=== PATIENT | male | born 1960 | race Caucasian/White ===

== ENCOUNTER 2016-05-18 00:28 | Inpatient (IN) | payer OTHER ==
[~2016-05-18] VITALS: Ht 177.8 cm; Wt 74.4 kg
[2016-05-18] VITALS (9 sets, daily range): BP systolic 118–135; BP diastolic 65–73
--- NOTE | ~2016-05-18 | PR ---
[place], [place] PROGRESS NOTE NAME: RITA MELGAR UNIT #: [id number] ROOM: [place] [address] DOCTOR: MANA CLIFTON MD BIRTHDATE: [birth year] DOS: 05/19/2016 PULMONARY FOLLOWUP SUBJECTIVE: The patient has been noted comfortable at this time, resting. There was no abdominal pain noted. The patient was continued on oxygen supplementation as well. He had a modified barium swallow study done this morning. The patient's modified barium swallow study was described to be abnormal. Respiratory status of the patient was noted significant improvement. Chest congestion noted intermittently without any sputum expectoration. OBJECTIVE: VITAL SIGNS: The patient showed normal temperature this morning, respiratory rate 21, heart rate of 93, blood pressure 126/66. Pulse ox saturation on 4 liters nasal cannula 96% saturation. HEENT: Showed no acute change. NECK: Supple. CARDIOVASCULAR: S1, S2 audible. LUNGS: Noted with crackles of the lungs were noted bilaterally, more on the right than the left side. Wheezing was noted decreased. ABDOMEN: Soft, nontender. LABORATORY DATA: BMP today: BUN and creatinine were normal, remaining electrolytes were normal. CBC: Hemoglobin 12.9, hematocrit 40.8, platelet count 172,000 with normal WBC count. IMPRESSION: 1. Bilateral acute pneumonia of the patient with acute aspiration, which has been treated with the antibiotics. 2. Acute asthmatic bronchitis, new onset for the patient, treated with corticosteroids. 3. History of muscular dystrophy. PLAN OF TREATMENT: Decrease the dose of Solu-Medrol to b.i.d. dosing. Repeat chest x-ray of the patient has been ordered to be done in the morning. The patient has been ordered physical therapy and occupational therapy today as well to help him improve his mobility with history of muscular dystrophy. Follow the recommendations of Speech Therapy because of the current abnormal modified barium swallow. Usual care. Supportive therapy, plan and management. [place], [place] PROGRESS NOTE NAME: RITA MELGAR UNIT #: [id number] ROOM: [place] [address] DOCTOR: MANA CLIFTON MD BIRTHDATE: [birth year] MANA LUDWIG MD CM:PNTRANS [id number] MANA FLORES MD 05/19/16 1052 interface
--- NOTE | ~2016-05-18 | PR ---
[place], [place] PROGRESS NOTE NAME: RITA MELGAR UNIT #: [id number] ROOM: 425 DOCTOR: MANA CLIFTON MD BIRTHDATE: [birth year] DOS: 05/25/2016 PULMONARY PROGRESS NOTE SUBJECTIVE: The patient was seen and examined on 05/25/2016, comfortably resting, sitting on the chair this morning. He has been showing continued reduction and improvement in the respiratory complaints at this time. The patient denies symptoms of chest pain, participates in physical therapy, speech and occupational therapy. OBJECTIVE: VITAL SIGNS: For the patient, which have been recorded showed the temperature of the patient was noted as normal. The respiratory rate of the patient recorded as 20, heart rate 97, blood pressure 99/50-114/70. The pulse ox saturation recorded on room air is 94% saturation. HEENT: Examination shows no acute change. NECK: Supple. CARDIOVASCULAR SYSTEM: S1, S2 audible. LUNGS: Noted without any wheezing or crackles at the present time. ABDOMEN: Soft, nontender. IMPRESSION: 1. The patient with progressive resolution of acute bacterial pneumonia and the patient with acute respiratory failure. 2. Oropharyngeal dysphagia, currently PEG tube in place. 3. Muscular dystrophy. PLAN OF TREATMENT: The patient has been already approved for the patient to be transferred to the [facility], but he does not wish to do that at this time. He does understand the risks and the benefits for the patient of such decision. Discharge planning for the patient has been started for the patient. The patient refused for the home discharge with home health services. Outpatient assessment recommended for the patient post-discharge rather to home or group home facility in the next 2-3 weeks for assessment of the respiratory status. Further discharge planning to be completed by the primary care attending. [place], [place] PROGRESS NOTE NAME: RITA MELGAR UNIT #: [id number] ROOM: 425 DOCTOR: MANA CLIFTON MD BIRTHDATE: [birth year] MANA LUDWIG MD CM:PNTRANS [phone] MANA FLORES MD 05/25/161923 interface
--- NOTE | ~2016-05-18 | PR ---
[place], [place] PROGRESS NOTE NAME: RITA MELGAR UNIT #: [id number] ROOM: 425 DOCTOR: MANA CLIFTON MD BIRTHDATE: [birth year] DOS: 05/23/2016 PULMONARY PROGRESS NOTE SUBJECTIVE: He has been showing continued gradual reduction and improvement of respiratory complaints. He has been getting physical therapy and occupation therapy as well. The coughing has been subsiding. There were no symptoms of chest pain or any abdominal pain. OBJECTIVE: VITAL SIGNS: For the patient which was recorded shows the temperature of the patient noted as normal. Respiratory rate 16, heart rate 70, blood pressure 108/60-118/74. Pulse oxygen saturation on 3 liters nasal cannula was 98% saturation recorded. HEENT: Examination shows no new change. NECK: Supple. CARDIOVASCULAR: S1, S2 audible. LUNGS: Noted without any wheezing or crackles. ABDOMEN: Soft, nontender. LABORATORY DATA: The results of the urine for Legionella antigen and Streptococcal antigen were noted as negative. No other labs were done today. IMPRESSION: 1. Resolving acute pneumonia for this patient was noted at present time with current present medical management from aspiration. 2. Oropharyngeal dysphagia as well. 3. History of muscular dystrophy. PLAN OF TREATMENT: Keep the patient n.p.o., continue physical therapy and occupation therapy, bronchodilators, oxygen supplementation, other plan of management. The chest x-ray of the patient ordered to be repeated today to assess the further resolution of the acute pneumonia. [place], [place] PROGRESS NOTE NAME: RITA MELGAR UNIT #: [id number] ROOM: 425 DOCTOR: MANA CLIFTON MD BIRTHDATE: [birth year] MANA LUDWIG MD CM:PNTRANS [id number] MANA FLORES MD 05/23/16 1245 interface
--- NOTE | ~2016-05-18 | CON ---
[place], [place] REPORT OF CONSULTATION NAME: RITA MELGAR UNIT #: [id number] ROOM: [place] [address] DOCTOR: OZIEL FLORES MDMANA BIRTHDATE: [birth year] DOS: 05/18/2016 PULMONARY CONSULTATION EVALUATION AND MANAGEMENT CONSULTATION REQUESTED BY: Hospitalist Services. HISTORY OF PRESENT ILLNESS: This is a 56-year-old white male who has been known with past history of muscular dystrophy, the patient still ambulating at home with assistance or use of crutches or other kind of supportive. The patient has been noted with developing increased coughing for the past 3 weeks. The history was given by the patient's and the mother as well. The patient has been assessed by his primary care physician, the patient was prescribed 1 antibiotic. He has not been showing any improvement in the respiratory symptoms and was given another course of a different antibiotic. The symptoms of the patient has been noted progressively worse for the past few days. The patient also developed wheezing and started on corticosteroids recently by the primary care physician. He was noted with high grade fever for the patient occurring at home, which has been brought down with use of the ibuprofen and other similar medications antipyretics. The patient has been admitted to the hospital and noted with acute pneumonia as well. REVIEW OF SYSTEMS: CONSTITUTIONAL SYMPTOMS: The patient was noted with symptoms of fatigue and tiredness with fever, but there were no chills described. EYES: Denies any blurred vision, dryness or the discharge. CARDIOVASCULAR SYSTEM: Denies anginal pain, edema or pain of the lower extremities or palpitations. EARS, NOSE, AND THROAT SYMPTOMS: Denies sore throat, hoarseness, otalgia, postnasal drainage. GASTROINTESTINAL SYMPTOMS: The patient has been noted with multiple episodes of vomiting recently for this patient as well. There were no abdominal pain, hematemesis, melena or hematochezia described. There was no known per se history of dysphagia. GENITOURINARY SYMPTOMS: Denies symptoms of dysuria, suprapubic pain, or hematuria. SKIN: There were no lesions or rashes described. MUSCULOSKELETAL SYMPTOMS: No acute deformities for this patient or redness noted. History of muscular dystrophy known. CENTRAL NERVOUS SYSTEM: History of muscular dystrophy of the patient noted without any history of acute seizures or syncopal episodes. Remaining systems were reviewed with the patient and with the help of the family members and noted negative. PAST MEDICAL HISTORY: Noted with history of muscular dystrophy. SURGICAL HISTORY: Reported as tonsillectomy. SOCIAL HISTORY: The patient is , lives at home. There was no history of alcohol use, tobacco or illicit drug use known. [place], [place] REPORT OF CONSULTATION NAME: RITA MELGAR UNIT #: [id number] ROOM: [place] [address] DOCTOR: MANA CLIFTON MD BIRTHDATE: [birth year] FAMILY HISTORY: Father at the age of years old, complication of muscular dystrophy as well. Mother is living, 77 years old without any known medical illnesses. HOME MEDICATIONS: Noted Vicodin and multivitamin. The details about the antibiotic use were unknown aspiration. DRUG ALLERGIES: NOTED ALLERGY TO MORPHINE SULFATE AND PENICILLINS. PHYSICAL EXAMINATION: GENERAL: This is a 56-year-old male who has been currently noted to be awake and alert, able to speak for this patient with some difficulty. Height for the patient recorded on current admission by the nursing staff 5 feet 10 inches, weight of 166 pounds, BMI 23. VITAL SIGNS: Temperature 99.4 degrees Fahrenheit to normal temperature, respiratory rate 23-24, heart rate of 88-110, blood pressure 122/72-88. Pulse oxygen saturation of the patient recorded on room air 83% and on 4-5 L nasal cannula was 96% saturation. HEENT: Examination showed head was atraumatic. Eyes nonicterus. NECK: Supple. CARDIOVASCULAR SYSTEM: S1, S2 is audible. LUNGS: The patient was noted with crackles of the lungs were noted bilaterally. Wheezing was also present in the lungs bilaterally. ABDOMEN: Flat, soft, nontender. EXTREMITIES: Show no edema, clubbing or cyanosis. MUSCULOSKELETAL SYMPTOMS AND CENTRAL NERVOUS SYSTEM: Examination of the patient was noted with muscular dystrophy. LABORATORY DATA: The labs on this patient. Arterial blood gas this morning, pH of 7.36, pCO2 of 48, pO2 57 on 2 L nasal cannula of oxygen this morning at time of admission to Intensive Care Unit. Influenza A and B nasal washing antigens are negative. Lactic acid 2.3, followup lactic acid 1.4 normal. PT/INR for the patient was noted as normal. This morning CMP of the patient on admission, glucose 223, BUN 14, creatinine was normal. AST 48, ALT 166, alkaline phosphatase 168, troponin mildly elevated at 0.34 with normal lipase. Second set of CK-MB, troponin of the patient, troponin still noted mildly elevated 0.318 with normal CK and MB. CMP repeated again, glucose 155, BUN and creatinine was normal, sodium 150, potassium 3.2. AST, ALT and alkaline phosphatase were still noted abnormal with partial improvement since earlier labs. Review of the radiology data for this patient. The chest x-ray which was done, 1 view for patient on admission was noted with moderate size of patchy infiltration was noted in the right mid and the right lower lobe. Infiltration and consolidation was also present in the left lower lobe. Small pleural effusions were seen. IMPRESSION: 1. The patient who has been currently admitted to the hospital with acute hypoxic respiratory failure with acute bacterial pneumonia with possibility of resistant infection because of 2 antibiotics and failed outpatient treatment. [place], [place] REPORT OF CONSULTATION NAME: RITA MELGAR UNIT #: [id number] ROOM: [place] [address] DOCTOR: OZIEL FLORES MD,[facility] BIRTHDATE: [birth year] 2. New onset of acute exacerbation of bronchial asthma. 3. Small pleural fluid related to the current acute pneumonia as well. 4. Abnormal troponin of the patient, rule out non-ST segment elevation myocardial infarction. 5. Lactic acidosis with acute sepsis as well. 6. History of muscular dystrophy. 7. Rule out dysphagia. The right diaphragm was also noted to be elevated for the patient, will be assessed for possibility of diaphragmatic paralysis. PLAN OF TREATMENT: The patient is already getting therapeutic heparin and the IV corticosteroids. Hyperglycemia noted secondary to corticosteroids, need to be managed with sliding scale insulin coverage if necessary. Continue bronchodilators and the current antibiotics administration. The antibiotic spectrum will be reduced based on the progression of the illness. Obtain the sputum for Gram stain and culture and monitoring blood culture results. Also, get the urine for Legionella antigen as well. Keep the oxygen supplementation to maintain saturation 92% or greater. At this time, there will be no need for the use of the BiPAP or other respiratory support, if necessary, it will be ordered accordingly. All other supportive therapy, plan and management. Obtain the sniff test for the patient to rule out diaphragmatic paralysis. Also, closely monitor pleural fluid. Consider thoracentesis if necessary. Usual care. Other plan and management as well. Monitor chest x-ray periodically as well. Close monitoring of the respiratory status to be continued in the Intensive Care Unit as well. Further treatment in changes will be done based on the progression of the illness. The anticoagulation for the patient's DVT prophylaxis already provided with the therapeutic heparin. Cardiology consultation has been noted in progress. The patient has been also getting echocardiogram to assess his left ventricular ejection fraction. Thanks for allowing me to participate in the care of this patient. MANA LUDWIG MD CM:CONSTR:REPORT OF CONSULTATION 1255 05/18/16 2117 interface
--- NOTE | ~2016-05-18 | PR ---
[place], [place] PROGRESS NOTE NAME: RITA MELGAR UNIT #: [id number] ROOM: 425 DOCTOR: OZIEL FLORES MD,MANA BIRTHDATE: [birth year] DOS: 05/20/2016 ADDENDUM The patient's sniff test results of the patient of 05/18/2016 were reviewed, showed paradoxical movement of the patient of the right upper diaphragm for the patient with a strong consideration of the right diaphragmatic hemiparesis for the patient would be considered. The diaphragm was still noted elevated with all the recent study for this patient as well. MANA LUDWIG MD CM:DUANE [phone] MANA FLORES MD 05/20/16 1242 interface
--- NOTE | ~2016-05-18 | O ---
[place], [place] OPERATIVE NOTE NAME: RITA MELGAR UNIT #: [id number] ROOM: 425 DOCTOR: MAGDA MONTOYA MD BIRTHDATE: [birth year] DOS: 05/20/2016 GASTROENDOSCOPIC REPORT INDICATION: A 56-year-old patient who has presented with chief complaint of neurogenic dysphagia, history of myotonic dystrophy, disability, history of tonsillectomy, dyslipidemia, and bedridden status. Gradual difficulty with swallowing secondary to neurogenic dysphagia. PROCEDURE: Today's procedure part of investigation was EGD, PEG tube placement. PREMEDICATION: Versed and Diprivan. SCOPE: Olympus forward-viewing gastroscope Q10 video. REPORT: After putting the patient in the left lateral position and after application of lubricant to the scope, the scope was introduced. Thereafter, under direct visualization, I advanced through the length of the esophagus without difficulty. Esophagus cervicothoracic distally carefully examined. Evidence of esophagitis was noticed. There was evidence of dysmotility of the esophagus and unableness to clear the secretions because of abnormal dysmotility; however, the secretions were suctioned out. Gastric pouch was entered. Duodenal patency assured. Anterior abdominal wall aseptically was prepped, 2 mL of Xylocaine was injected. Trocar was introduced. Guidewire was advanced, grasped with forceps and orally pulled. Gastrostomy tube, PEG size 20, it was anchored to the guidewire and orally pulled to recover from the surface of the abdomen. Anchors placed, patency checked, tolerated the procedure well. IMPRESSION: Percutaneous endoscopic gastrostomy for neurogenic dysphagia, myotonic dystrophy. PLAN AND DISCUSSION: Resumption of feeding Osmolite 20 mL per hour starting 10 p.m. tonight and increasing to 30 next morning and to 40 next morning after. Water flushes, H2O 40 mL every 4 hours and clinical reassessment. [place], [place] OPERATIVE NOTE NAME: RITA MELGAR UNIT #: [id number] ROOM: 425 DOCTOR: MAGDA MONTOYA MD BIRTHDATE: [birth year] MAGDA MONTOYA MD CM:OPRECORD:OPERATIVE NOTE [phone] MAGDA MONTOYA MD 05/23/16 1050 interface
--- NOTE | ~2016-05-18 | PROC NOTE ---
[place], [place] PROCEDURE NOTE NAME: RITA MELGAR UNIT #: [id number] ROOM: [place] [address] DOCTOR: MINE OBANDO BIRTHDATE: [birth year] DOS: MODIFIED BARIUM SWALLOW BACKGROUND HISTORY AND MEDICAL HISTORY: The patient is a pleasant 56-year-old male referred for modified barium swallow due to a current diagnosis of muscular dystrophy. The patient has increased his respiratory symptoms with a chest x-ray recently done during hospitalization indicating bilateral lower lobe airspace disease. The patient is currently n.p.o. upon admission due to respiratory status and diagnosis of pneumonia to assess for safety diet recommendations for p.o. intake. The patient's voice was hoarse and weak and his speech was dysarthric in nature and he reports this is consistent with his diagnosis of muscular dystrophy and reports that he is progressively becoming weaker and having more difficulty. METHODS AND MATERIALS: The patient was seated upright on a gurney with max assist he was viewed in the lateral plane. The study was done in conjunction with Dr. Mcnair. The patient was able to hold a cup and some assistance was provided during the modified barium swallow. The patient was administered nectar thick liquid off a teaspoon and nectar thick liquid out of a cup and nectar thin liquid, barium as well as applesauce coated with barium paste. ORAL PHASE: The patient demonstrated moderately to severe difficulty forming a cohesive bolus and transferring it to the posterior portion of his oral cavity into the pharynx. He had premature loss of all consistencies with poor formation of a bolus on nectar and thin liquids. It was more controlled with the applesauce. The patient demonstrated the liquids falling into his vallecula and the thin liquids filling over into his piriform sinuses before triggering a swallow with an average of 4 seconds delay and moderate delay in swallow initiation at the level of the vallecula and/or the piriform and vallecula filled with consistencies. PHARYNGEAL PHASE: The patient demonstrated severe residue with poor tongue base to posterior and anterior posterior pharyngeal wall contact. He also demonstrated reduced laryngeal elevation and there was severe residue on all consistencies throughout the pharynx. NATURAL RESOURCES EXTENSION EDUCATOR cued him and he did clear to moderate amounts of residue with sequential swallows approximately 3-4 per bolus amount which would also probably lead to fatigue. There was penetration noted on an unknown consistency, which was in the vallecula it was either thin or nectar consistency and patient did not cough or throat clear. He had an unproductive cough and was unable to clear from his laryngeal vestibule. So we would probably ultimately follow to the level of the vocal cords and down into the lungs to be considered aspiration; however, this was not noted on the study. RECOMMENDATIONS AND IMPRESSION: This development writer feels the patient is unsafe and would not be able to maintain adequate nutrition and hydration via p.o. intake due to moderate to severe oral and pharyngeal dysphagia. It is recommended that patient be seen for extensive speech therapy and therapeutic feeds per speech therapist will be implemented when patient is stronger and can tolerate them. The patient is a candidate for the Culp water protocol as he tolerated small [place], [place] PROCEDURE NOTE NAME: RITA MELGAR UNIT #: [id number] ROOM: [place] [address] DOCTOR: MINE OBANDO BIRTHDATE: [birth year] sips of thin liquids; however, the Culp protocol should be followed closely with good oral care, small sips of pure water with cleaning of the mouth before and after and throughout the day. The patient should be limited in his intake of water to 30-60 mL a few times a day and be closely monitored for signs and symptoms of aspiration. Thank you for this referral. MINE OBANDO CM:PROCNOTE:PROCEDURE NOTE [id number] MINE OBANDO
--- NOTE | ~2016-05-18 | PR ---
[place], [place] PROGRESS NOTE NAME: RITA MELGAR UNIT #: [id number] ROOM: 425 DOCTOR: MANA CLIFTON MD BIRTHDATE: [birth year] DOS: 05/24/2016 PULMONARY PROGRESS NOTE SUBJECTIVE: He has been noted very comfortable at this time, sitting on the side of the bed. Overall, improvement in the respiratory status of the patient and physical status has been noted. The patient denies symptoms of chest pain, abdominal pain. Coughing has been gradually subsiding. OBJECTIVE: VITAL SIGNS: For the patient which has been recorded showed the temperature of the patient was noted as normal temperature. The respiratory rate of the patient recorded as 20, heart rate of 66, blood pressure of 92/60. HEENT: Showed no acute change. NECK: Supple. CARDIOVASCULAR: S1, S2 audible. LUNGS: The patient noted without any wheezing or crackles at the present time. ABDOMEN: Soft, nontender. LABORATORY DATA: Chest x-ray of the patient that was done yesterday was reviewed and it shows small bilateral infiltration was still noted with incomplete resolution of previous noted acute pneumonia. IMPRESSION: 1. Improving acute pneumonia of the patient with aspiration, responding to current treatment effectively. 2. Dysphagia, PEG tube in place. 3. Muscular dystrophy with overall generalized debility, muscle deconditioning improving. PLAN OF TREATMENT: No changes in the plan of management at this time. Continue the patient on current therapy, plan of care, other usual medical management. Supportive care, other treatment plan of therapies. The patient is currently being assessed for transfer to correction facility. The patient is refused by the insurance for transfer to the nursing facility, has been refused for the LTAC facility, then there would be no choice, but to discharge the patient to home setting with antibiotic, bronchodilators, physical therapy, speech therapy, occupational therapy and others. [place], [place] PROGRESS NOTE NAME: RITA MELGAR UNIT #: [id number] ROOM: 425 DOCTOR: MANA CLIFTON MD BIRTHDATE: [birth year] MANA LUDWIG MD CM:PNTRANS [phone] MANA FLORES MD 05/24/16 1220 interface
--- NOTE | ~2016-05-18 | CON ---
[place], [place] REPORT OF CONSULTATION NAME: RITA MELGAR UNIT #: [id number] ROOM: [place] [address] DOCTOR: RITA LACEY MD BIRTHDATE: [birth year] DOS: 05/18/2016 REASON FOR CONSULTATION: Elevated troponin level. HISTORY OF PRESENT ILLNESS: The patient is a 56-year-old man who has a history of myotonic dystrophy. He is followed at the [facility] at [facility] by Dr. Abel Macedo. The patient does have a history of dysphagia, but has been otherwise felt to be stable as regards his dystrophy. He is not aware of any cardiac complications of the illness. He has been ill for the last 3 weeks with a productive cough. He was tried on oral antibiotics, but did not improve. He was given a course of steroids, but again did not improve. He has gradually worsened, and therefore, he was brought to the hospital for further assessment. Since he has been in the hospital, his chest x-ray has shown bilateral lower lobe airspace disease with small bilateral pleural effusions. He is felt to have multilobar pneumonia. The patient states that he has had fevers as high as 102.8. He denies any chills. He does have a cough, but has hard time producing sputum. PAST MEDICAL HISTORY: Includes the followin. Myotonic dystrophy. 2. History of an abnormal electrocardiogram with left anterior fascicular block, but no atrioventricular block noted. MEDICATIONS: Prior to admission included hydrocodone with acetaminophen 5/325 once every 6 hours as needed, therapeutic multivitamin daily, joint health glucosamine with MSM daily and DuoNeb by nebulizer daily. ALLERGIES: The patient lists allergies to MORPHINE and PENICILLINS. FAMILY HISTORY: Negative for early coronary disease. REVIEW OF SYSTEMS: The patient denies diplopia or loss of vision. He denies any new weakness or focal weakness. He denies lightheadedness or syncope. He has had dyspnea and cough. He denies bleeding from any site. He denies nausea or vomiting. He denies change in bowel or bladder habits and denies any bleeding from any orifice. He denies any new skin rashes. He has had fevers noted above. He denies any peripheral edema. Remainder of the review of systems is negative except as noted above. SOCIAL HISTORY: The patient is and lives with his . He does not smoke. PHYSICAL EXAMINATION: GENERAL: Reveals a slender white male who is awake, alert and oriented. VITAL SIGNS: Pulse is 85 and regular, blood pressure 125/72. He has temperature of 99.1. He weighs 75.4 kilograms with a body mass index 23.8. HEENT: Normocephalic, atraumatic. Extraocular muscles are intact. Sclerae are clear. Pupils are round and react to light. The oral mucosa is moist. Tongue is midline. [place], [place] REPORT OF CONSULTATION NAME: RITA MELGAR UNIT #: [id number] ROOM: [place] [address] DOCTOR: RITA LACEY MD BIRTHDATE: [birth year] NECK: Supple. He has no jugular distention or hepatojugular reflux. Carotids are full. I heard no bruits. He had no neck or supraclavicular masses. LUNGS: Respirations are unlabored. His chest is clear to auscultation and percussion. He has no presacral edema or chest wall tenderness. CARDIOVASCULAR: His heart has a regular rhythm. He has a fourth heart sound, but no third heart sound or significant murmur. The PMI is not displaced. There is no precordial heave, lift or thrill. ABDOMEN: Soft and normally active without masses, organomegaly or bruits. EXTREMITIES: Showed no edema. Peripheral pulses are easily palpated in the feet bilaterally. LABORATORY DATA: I reviewed his electrocardiogram. It does show sinus tachycardia with a left anterior fascicular block and nonspecific T-wave abnormalities. He does not show any AV block. I compared the tracing with a previous one done at [facility] on 11/18/2015, and there has been no change. Review of his old records from [place] does indicate that he had an echocardiogram in 08/2014, which showed normal left ventricular size, wall motion and systolic function with an ejection fraction of 60%. There was borderline concentric left ventricular hypertrophy with mild prolapse of the mitral valve. IMPRESSIONS: 1. Multilobar pneumonia, most likely due to aspiration. 2. 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 3. Abnormal electrocardiogram demonstrating left anterior fascicular block. This is not a new finding. 4. Mild elevation in troponin with a peak troponin level 0.343 noted on admission and gradually falling since then. This most likely is related to his high fever; however, cardiomyopathy related to his myotonic dystrophy is not ruled out at this time. PLAN: We will obtain an echocardiogram and I will review when it is available. We will continue him on the monitor to look for evidence for AV herrera block, and I will continue to monitor the patient along with his other physicians. At this time, no other workup is indicated. Certainly aggressive pulmonary treatment will be necessary in his management. [facility] and I thank the hospitalist physicians for asking our advice regarding his care. [place], [place] REPORT OF CONSULTATION NAME: RITA MELGAR UNIT #: [id number] ROOM: [place] [address] DOCTOR: RITA LACEY MD BIRTHDATE: [birth year] RITA LACEY MD CM:CONSTR:REPORT OF CONSULTATION 1338 05/18/16 2231 interface
--- NOTE | ~2016-05-18 | PR ---
[place], [place] PROGRESS NOTE NAME: RITA MELGAR UNIT #: [id number] ROOM: 425 DOCTOR: OZIEL FLORES MD,MANA BIRTHDATE: [birth year] DOS: 05/22/2016 SUBJECTIVE: The patient is seen and examined on 05/22/2016. He has been comfortably resting, sitting on the chair this morning. Coughing has been improving progressively. The patient denies symptoms of chest pain, abdominal pain. Shortness of breath has been resolving. He has been getting intravenous antibiotics acute pneumonia. OBJECTIVE: VITAL SIGNS: He was a normal temperature, respiratory rate of 16, heart rate 74, blood pressure 120/70. Intake is 2740 mL, output 1450 mL. Pulse oxygen saturation of the patient recorded on 3 liters nasal cannula saturation. HEENT: Showed no acute change. NECK: Supple. CARDIOVASCULAR: S1, S2 audible. LUNGS: The patient noted without any wheezing or crackles at the present time. ABDOMEN: Soft, nontender. IMPRESSION: 1. Resolving acute pneumonia for this patient from aspiration bilaterally with resolving. 2. Acute bronchial asthma exacerbation with current medical management. 3. History of muscular dystrophy as well with generalized weakness and fatigue. 4. Oropharyngeal dysphagia, currently has a PEG tube in place, which had been used for the feeding. PLAN OF TREATMENT: Speech therapy, physical therapy and occupational therapy, antibiotics, bronchodilators and corticosteroids. Usual care, other supportive plan of therapy and management. MANA LUDWIG MD CM:PNTRANS [id number] MANA FLORES MD 05/23/16 0138 interface
--- NOTE | ~2016-05-18 | PR ---
[place], [place] PROGRESS NOTE NAME: [id number] UNIT #: [id number] ROOM: 425 DOCTOR: OZIEL FLORES MDMANA BIRTHDATE: [birth year] DOS: 05/20/2016 SUBJECTIVE: He has been noted reduction of the cough at this time. The patient has been recommended for the PEG tube insertion because of severe oropharyngeal dysphagia. The patient may be related to his underlying muscular dystrophy. He was still noted generalized weakness and fatigue. The patient has been ordered physical therapy and occupation therapy as well. He has not been noted any hemodynamic instability. OBJECTIVE: VITAL SIGNS: Fever of the patient noted low grade 99.2-100 degrees Fahrenheit and intervening normal temperature of the patient in between and the normal recorded in the last 24 hours. The respiratory rate between 24-26, heart rate 80-89, blood pressure 147/79-141/70. Pulse oxygen saturation on 4 liters nasal cannula was maintained as 91-92% saturation. HEENT: Examination shows no acute change. NECK: Supple. CARDIOVASCULAR: S1, S2 audible. LUNGS: The patient was noted with occasional crackles. Moderate decreased breath sounds noted in the lungs bilaterally. ABDOMEN: Soft, nontender. Bowel sounds present. EXTREMITIES: Shows no edema, clubbing or cyanosis. LABORATORY DATA: BMP today shows BUN 8 and creatinine was normal, sodium 148, potassium 2.8. CBC of the patient this morning, WBC count was normal, hemoglobin 11.8, hematocrit 36.4, platelet count 199,000. Hepatitis panel for this patient was noted as normal. Culture of the sputum preliminary showing moderate growth of yeast. Blood culture of the patient showed no bacterial growth from 15th of this month, chest x-ray showed reduction of previously noted pulmonary infiltration. IMPRESSION: 1. The patient with acute hypoxic respiratory failure, acute bilateral aspiration pneumonia with possibility of superimposed fluid overload would be considered. 2. Severe dysphagia. The patient with history of muscular dystrophy and debility with muscle deconditioning. PLAN OF TREATMENT: Proceed with PEG tube insertion. ASSESSMENT: For the long-term acute care facility has been discussed with the patient and spouse and his mother. They were both agreeable for that. youth services specialist consultation has been ordered. Other supportive plan and management at this time without any changes in the medical management at this time need to be done, otherwise today. [place], [place] PROGRESS NOTE NAME: RITA MELGAR UNIT #: [id number] ROOM: 425 DOCTOR: MANA CLIFTON MD BIRTHDATE: [birth year] MANA LUDWIG MD CM:PNTRANS [phone] [id number] MANA FLORES MD 05/20/162206 interface
--- NOTE | ~2016-05-18 | CON ---
[place], [place] REPORT OF CONSULTATION NAME: RITA MELGAR UNIT #: [id number] ROOM: 425 DOCTOR: MAGDA MONTOYA MD BIRTHDATE: [birth year] DOS: 05/21/2016 GASTROENDOSCOPIC CONSULTATION REPORT HISTORY OF PRESENT ILLNESS: The patient is a 56-year-old who has presented with chief complaint of myotonic dystrophy, disabledness and bedridden, status post PEG tube yesterday. He is tolerating the PEG feeding and this site was inspected; there is no infection, there is no infiltration, there is no pain. PAST MEDICAL HISTORY: Myotonic dystrophy, bedridden, dyslipidemia. SOCIAL HISTORY: Nonsmoker, nonalcohol consumer. REVIEW OF SYSTEMS: No hematemesis, no hematochezia. No shortness of breath. No chest pain. Digestive system, status post PEG. PHYSICAL EXAMINATION: HEENT: Benign. NECK: Supple, no thyromegaly. CHEST: Symmetric anatomy. Few scattered rhonchi. HEART: Normal sinus rhythm, no gallop, no murmur. ABDOMEN: Soft. PEG tube in place. Bowel sounds positive. EXTREMITIES: No cyanosis, no pedal edema. Muscle dystrophy is noticed. IMPRESSION: Neurogenic dysphagia, status post PEG, feeding at 20 mL per hour yesterday, has been improved to 30 mL per hour today and 40 tomorrow ascending-uribe and free water flush 40 mL q. 4 hours is in order per PEG. MAGDA MONTOYA MD CM:CONSTR:REPORT OF CONSULTATION 1714 05/23/16 0848 interface
--- NOTE | ~2016-05-18 | PR ---
[place], [place] PROGRESS NOTE NAME: [id number] UNIT #: [id number] ROOM: [place] [address] DOCTOR: RITA LACEY MD BIRTHDATE: [birth year] DOS: 05/19/2016 CARDIOLOGY PROGRESS NOTE SUBJECTIVE: The patient was seen at his bedside in the Intensive Care Unit for followup of an elevation in troponin. The patient is still having some problems with breathing and cough. He is being treated for pneumonia. Speech therapies does indicate that he has severe dysphagia and will require extensive therapy for that. I reviewed his echocardiogram yesterday the study was normal. PHYSICAL EXAMINATION: VITAL SIGNS: Today, his pulse is 94 and regular; blood pressure is 123/75. He is afebrile. He weighs 75.4 kilograms. HEENT: Normocephalic, atraumatic. Extraocular muscles are intact. Sclerae are clear. Pupils are round and reactive to light. Oral mucosa is moist. Tongue is midline. NECK: Supple. He has no jugular distention. Carotids are full. LUNGS: Respirations are slightly labored at rest. He does have bibasilar crackles. HEART: Has a regular rhythm with a fourth heart sound, but no third heart sound or murmur. The PMI is not displaced. ABDOMEN: Benign. EXTREMITIES: Showed no edema. LABORATORY DATA: Echocardiogram 05/18/2016, normal left ventricular size, wall motion and systolic function with normal wall thickness. Diastolic function is also normal. There is no significant abnormality of valve function. ASSESSMENT: 1. Myotonic dystrophy with a complication of severe dysphagia. 2. Multilobar pneumonia, most likely due to aspiration. 3. Abnormal electrocardiogram demonstrating left anterior fascicular block. This is not a new finding. 4. Mild elevation in troponin with a peak troponin level about 0.343 noted on admission and gradually falling since then. This most likely was due to his high fever. 5. Normal echocardiogram. The patient shows no signs of cardiomyopathy related to his muscular dystrophy. 6. No evidence for heart block on his monitor. PLAN: At this point, the patient does not show any signs of significant myocardial injury and he does not show any signs of cardiac complications from his dystrophy. He should be treated aggressively for his pneumonia and dysphagia. Cardiology has no other plans at this time. We will remain available to see him as needed and I thank the hospitalist physicians for asking our advice regarding his care. [place], [place] PROGRESS NOTE NAME: TALIARITA UNIT #: [id number] ROOM: [place] [address] DOCTOR: RITA LACEY MD BIRTHDATE: [birth year] RITA LACEY MD CM:DUANE [id number] RITA LACEY MD 05/19/16 1259 interface
--- NOTE | ~2016-05-18 | PR ---
[place], [place] PROGRESS NOTE NAME: RITA MELGAR UNIT #: [id number] ROOM: 425 DOCTOR: MANA CLIFTON MD BIRTHDATE: [birth year] DOS: 05/21/2016 PULMONARY PROGRESS NOTE SUBJECTIVE: He was seen and examined on 05/21/2016. The patient has been noted comfortable at this time. He has not been noted with symptoms of chest pain or any abdominal pain. Coughing has been subsiding. Shortness of breath is improving. OBJECTIVE: VITAL SIGNS: Normal temperature, respiratory rate 18, heart rate 82, and blood pressure 120/72. Pulse oxygen saturation on room air was 89% saturation. HEENT: Shows no new change. NECK: Supple. CARDIOVASCULAR: S1, S2 audible. LUNGS: With scattered crackles of the lungs at lung bases without any wheezing. ABDOMEN: Soft, nontender. LABORATORY DATA: BMP was noted as normal. The phosphorus level noted decreased at 1.3. CBC normal. IMPRESSION: 1. The patient with status post percutaneous endoscopic gastrostomy tube insertion with ongoing acute aspiration pneumonia, which has been improving. Generalized debility, history of muscular dystrophy, and electrolyte imbalance. 2. Resolving acute asthmatic bronchitis as well. PLAN OF TREATMENT: Reduce the antibiotic spectrum for the patient with discontinuation of the meropenem as well as vancomycin and continue the patient on Levaquin. Other supportive plan of therapy and management to be continued. For hypophosphatemia, the patient will be started on supplementation with Neutra-Phos. Decrease Solu-Medrol to daily dosing as well. All other supportive plan and management and usual care. [place], [place] PROGRESS NOTE NAME: RITA MELGAR UNIT #: [id number] ROOM: 425 DOCTOR: MANA CLIFTON MD BIRTHDATE: [birth year] MANA LUDWIG MD CM:PNTRANS [phone] MANA FLORES MD 05/23/16 1241 interface
[~2016-05-18 00:28] MED LIST: ACCUNEB 0.0.63 MG/3 INH; ANTIVERT/2525 MG PO; ZITHROMAX Z PA250 MG PO
[2016-05-18] MEDS ORDERED: Wellbutrin Sr100 MG PO (00:37)
[2016-05-18] MEDS ORDERED: COMPLETE M9 MG/15 ML PO (00:38)
[2016-05-18 00:59] LABS: HEMOGLOBIN 14.3 g/dl (14.0-18.0); MEAN CELL VOLUME 96.4 fl (80.0-94.0); MEAN CORPUSCULAR HGB 30.6 pg (27.0-31.0); MEAN CORPUSCULAR HGB CONC 31.8 g/dl (33.0-37.0); MEAN PLATELET VOLUME 10.3 fl (9.6-12.3); PLATELET COUNT AUTOMATED 159 10*3/uL (130-400); RED BLOOD COUNT 4.67 10*6/uL (4.50-5.90); RED CELL DISTRI WIDTH 15.2 % (0-14.5); WHITE BLOOD COUNT 14.3 10*3/uL (4.8-10.8)
[2016-05-18 01:00] LABS: ABG BASE EXCESS 1.6 mmol/L (-2.0-2.0); ABG CO2 CONTENT 28.8 mmol/L (23-27); ABG HCO3 27.3 mmol/l (22-26); ARTERIAL BLOOD GAS PH 7.366 (7.35-7.45)
[2016-05-18 01:15] LABS: ALBUMIN 2.6 gm/dl (3.1-4.5); ALKALINE PHOSPHATASE 168 U/L (45-117); BILIRUBIN, TOTAL 0.8 mg/dl (0.2-1.0); BUN 14 mg/dl (7-24); CARBON DIOXIDE 27 mmol/L (21-32); CHLORIDE 107 mmol/L (98-107); EST GLOM FILT AFRICAN AMERICAN > 60 ml/min; GLUCOSE 223 mg/dL (65-99); MAGNESIUM 2.1 mg/dL (1.5-2.1); POTASSIUM 3.6 mmol/L (3.5-5.1); SGOT/AST 48 IU/L (3-35); SGPT/ALT 166 U/L (12-78); SODIUM 145 mmol/L (136-145)
[2016-05-18 01:17] LABS: TROPONIN I 0.343 ng/ml (<0.045)
[2016-05-18 01:19] LABS: INTERNATIONAL NORM RATIO 0.9 (2.0-3.5); PROTHROMBIN TIME 9.9 SECONDS (9.0-12.4)
[2016-05-18 01:22] LABS: THYROID STIM HORMONE (HS) 0.189 uIU/ml (0.358-4.75)
[2016-05-18] MEDS ORDERED: VICODIN ES 7.51 EACH PO (01:36)
[2016-05-18 02:56] LABS: LA>2 REFLEX 2 HR DRAW NOW
[2016-05-18 03:02] LABS: LA>2 RFLX FOLLOW UP AT 2 HRS 2.4 mmol/L (0.4-2.0)
[2016-05-18 04:31] LABS: EOSINOPHIL # 0.1 10*3/uL (0-0.4); EOSINOPHILS 1 % (1-4); LYMPHOCYTE # 0.6 10*3/uL (1.3-4.4); MONOCYTE # 0.6 10*3/uL (0.1-1.0); NEUTROPHILS 91 % (47-73); PLATELET SUFFICIENCY NORMAL (NORMAL); TOTAL CELLS COUNTED 100 #CELLS
[2016-05-18 04:57] LABS: LA>2 REFLEX 4 HR DRAW NOW
[2016-05-18 05:40] LABS: CKMB 2.6 ng/ml (0.5-3.6)
[2016-05-18 05:42] LABS: TROPONIN I 0.318 ng/ml (<0.045)
[2016-05-18 05:51] LABS: ALBUMIN 2.2 gm/dl (3.1-4.5); ALKALINE PHOSPHATASE 144 U/L (45-117); BILIRUBIN, TOTAL 0.7 mg/dl (0.2-1.0); BUN 12 mg/dl (7-24); CARBON DIOXIDE 29 mmol/L (21-32); CHLORIDE 112 mmol/L (98-107); CHOLESTEROL 226 mg/dL (<200); EST GLOM FILT AFRICAN AMERICAN > 60 ml/min; GLUCOSE 155 mg/dL (65-99); HDL CHOLESTEROL 44 mg/dl (40-60); LDL CHOLESTEROL 152 mg/dL (9-159); PHOSPHOROUS 2.2 mg/dL (2.5-4.9); POTASSIUM 3.2 mmol/L (3.5-5.1); SGOT/AST 40 IU/L (3-35); SGPT/ALT 139 U/L (12-78); SODIUM 150 mmol/L (136-145); TOTAL PROTEIN 6.1 gm/dL (6.4-8.2); TRIGLYCERIDES 151 mg/dl (<150); VLDL CHOLESTEROL 30 mg/dL (6-40)
[2016-05-18 06:03] LABS: HEMATOCRIT 40.9 % (42.0-52.0); HEMOGLOBIN 12.6 g/dl (14.0-18.0); MEAN CELL VOLUME 98.3 fl (80.0-94.0); MEAN CORPUSCULAR HGB 30.3 pg (27.0-31.0); MEAN CORPUSCULAR HGB CONC 30.8 g/dl (33.0-37.0); MEAN PLATELET VOLUME 11.5 fl (9.6-12.3); PLATELET COUNT AUTOMATED 145 10*3/uL (130-400); RED BLOOD COUNT 4.16 10*6/uL (4.50-5.90); RED CELL DISTRI WIDTH 15.2 % (0-14.5); WHITE BLOOD COUNT 12.7 10*3/uL (4.8-10.8)
[2016-05-18 06:27] LABS: PROTHROMBIN TIME 10.6 SECONDS (9.0-12.4)
[2016-05-18 06:32] LABS: LYMPHOCYTE # 0.6 10*3/uL (1.3-4.4); MONOCYTE # 0.8 10*3/uL (0.1-1.0); NEUTROPHIL # 11.3 10*3/uL (2.3-7.9); NEUTROPHILS 89 % (47-73); TOTAL CELLS COUNTED 100 #CELLS
[2016-05-18 06:33] LABS: PLATELET SUFFICIENCY NORMAL (NORMAL); TOXIC GRANULATION SLIGHT
[2016-05-18 07:10] LABS: VITAMIN D, 25-HYDROXY 10.3 ng/mL (30-100)
[2016-05-18 07:11] LABS: FOLIC ACID 23.06 ng/mL (>5.38)
[2016-05-18 12:16] LABS: CKMB 2.9 ng/ml (0.5-3.6)
[2016-05-18 12:18] LABS: TROPONIN I 0.149 ng/ml (<0.045)
[2016-05-18 18:43] LABS: CKMB 2.3 ng/ml (0.5-3.6)
[2016-05-18 18:45] LABS: TROPONIN I 0.122 ng/ml (<0.045)
[2016-05-19] VITALS: BP 126/66
[2016-05-19 04:00] VITALS: BP 130/75
[2016-05-19 05:52] LABS: BUN 7 mg/dl (7-24); CARBON DIOXIDE 28 mmol/L (21-32); CHLORIDE 106 mmol/L (98-107); EST GLOM FILT AFRICAN AMERICAN > 60 ml/min; GLUCOSE 159 mg/dL (65-99); POTASSIUM 3.7 mmol/L (3.5-5.1); SODIUM 145 mmol/L (136-145)
[2016-05-19 05:58] LABS: HEMATOCRIT 40.8 % (42.0-52.0); HEMOGLOBIN 12.9 g/dl (14.0-18.0); MEAN CELL VOLUME 96.2 fl (80.0-94.0); MEAN CORPUSCULAR HGB 30.4 pg (27.0-31.0); MEAN CORPUSCULAR HGB CONC 31.6 g/dl (33.0-37.0); MEAN PLATELET VOLUME 10.7 fl (9.6-12.3); PLATELET COUNT AUTOMATED 172 10*3/uL (130-400); RED BLOOD COUNT 4.24 10*6/uL (4.50-5.90); RED CELL DISTRI WIDTH 15.1 % (0-14.5); WHITE BLOOD COUNT 10.6 10*3/uL (4.8-10.8)
[2016-05-19 06:26] LABS: LYMPHOCYTE # 0.4 10*3/uL (1.3-4.4); NEUTROPHIL # 10.2 10*3/uL (2.3-7.9); NEUTROPHILS 96 % (47-73); PLATELET SUFFICIENCY NORMAL (NORMAL); TOTAL CELLS COUNTED 100 #CELLS
[2016-05-19 08:00] VITALS: BP 123/75
[2016-05-19 08:13] LABS: HEPATITIS C VIRUS ANTIBODY <0.1 s/co (0.0-0.9)
[2016-05-19 10:16] LABS: BILIRUBIN, DIRECT 0.2 mg/dL (0.0-0.2); BILIRUBIN, INDIRECT 0.3 (0.2-0.8); BILIRUBIN, TOTAL 0.5 mg/dl (0.2-1.0)
[2016-05-19 12:00] VITALS: BP 124/61
[2016-05-19 16:00] VITALS: BP 143/74
[2016-05-19 20:00] VITALS: BP 143/74
[2016-05-20] VITALS (9 sets, daily range): BP systolic 138–153; BP diastolic 70–91
[2016-05-20 06:23] LABS: BASO % 0.1 % (0.0-1.0); HEMATOCRIT 36.4 % (42.0-52.0); HEMOGLOBIN 11.8 g/dl (14.0-18.0); IG # 0.1 10*3/uL (0.0-0.1); LYMPH # 0.7 10*3/uL (1.3-4.4); LYMPH % 6.1 % (27.0-41.0); MEAN CELL VOLUME 94.8 fl (80.0-94.0); MEAN CORPUSCULAR HGB 30.7 pg (27.0-31.0); MEAN CORPUSCULAR HGB CONC 32.4 g/dl (33.0-37.0); MEAN PLATELET VOLUME 10.6 fl (9.6-12.3); MONO # 0.6 10*3/uL (0.1-1.0); MONO % 5.2 % (3.0-9.0); NEUT # 9.3 10*3/uL (2.3-7.9); NEUT % 87.4 % (47.0-73.0); PLATELET COUNT AUTOMATED 199 10*3/uL (130-400); RED BLOOD COUNT 3.84 10*6/uL (4.50-5.90); RED CELL DISTRI WIDTH 14.9 % (0-14.5); WHITE BLOOD COUNT 10.7 10*3/uL (4.8-10.8)
[2016-05-20 06:36] LABS: ALBUMIN 2.2 gm/dl (3.1-4.5); BILIRUBIN, DIRECT < 0.1 mg/dL (0.0-0.2); BUN 8 mg/dl (7-24); CARBON DIOXIDE 30 mmol/L (21-32); CHLORIDE 107 mmol/L (98-107); EST GLOM FILT AFRICAN AMERICAN > 60 ml/min; GLUCOSE 137 mg/dL (65-99); POTASSIUM 2.8 mmol/L (3.5-5.1); SGOT/AST 15 IU/L (3-35); SGPT/ALT 75 U/L (12-78); SODIUM 148 mmol/L (136-145)
[2016-05-20 06:38] LABS: ALKALINE PHOSPHATASE 113 U/L (45-117); BILIRUBIN, TOTAL 0.4 mg/dl (0.2-1.0); TOTAL PROTEIN 5.7 gm/dL (6.4-8.2)
[2016-05-20 16:12] LABS: ORGANISM ID Not indicated. (.); SPECIMEN SOURCE Urine (.); STREPTOCOCCUS PNEUMONIAE AG Negative (Negative)
[2016-05-21] VITALS: BP 126/75
[2016-05-21 06:02] LABS: BASO % 0.1 % (0.0-1.0); HEMATOCRIT 39.8 % (42.0-52.0); HEMOGLOBIN 13.1 g/dl (14.0-18.0); IG # 0.2 10*3/uL (0.0-0.1); LYMPH # 0.8 10*3/uL (1.3-4.4); LYMPH % 8.1 % (27.0-41.0); MEAN CELL VOLUME 93.6 fl (80.0-94.0); MEAN CORPUSCULAR HGB 30.8 pg (27.0-31.0); MEAN CORPUSCULAR HGB CONC 32.9 g/dl (33.0-37.0); MEAN PLATELET VOLUME 10.7 fl (9.6-12.3); MONO # 0.5 10*3/uL (0.1-1.0); MONO % 5.4 % (3.0-9.0); NEUT # 7.9 10*3/uL (2.3-7.9); NEUT % 84.1 % (47.0-73.0); PLATELET COUNT AUTOMATED 212 10*3/uL (130-400); RED BLOOD COUNT 4.25 10*6/uL (4.50-5.90); RED CELL DISTRI WIDTH 15.1 % (0-14.5); WHITE BLOOD COUNT 9.4 10*3/uL (4.8-10.8)
[2016-05-21 06:30] LABS: BUN 9 mg/dl (7-24); CARBON DIOXIDE 30 mmol/L (21-32); CHLORIDE 105 mmol/L (98-107); EST GLOM FILT AFRICAN AMERICAN > 60 ml/min; GLUCOSE 142 mg/dL (65-99); PHOSPHOROUS 1.3 mg/dL (2.5-4.9); POTASSIUM 3.7 mmol/L (3.5-5.1); SODIUM 144 mmol/L (136-145)
[2016-05-21 08:00] VITALS: BP 120/72
[2016-05-21 12:00] VITALS: BP 130/70
[2016-05-21 16:00] VITALS: BP 134/78
[2016-05-21 20:00] VITALS: BP 125/63
[2016-05-22] VITALS: BP 127/70
[2016-05-22 06:21] LABS: BASO % 0.2 % (0.0-1.0); EOS % 0.1 % (1.0-4.0); HEMATOCRIT 41.5 % (42.0-52.0); HEMOGLOBIN 13.6 g/dl (14.0-18.0); IG # 0.2 10*3/uL (0.0-0.1); LYMPH % 22.3 % (27.0-41.0); MEAN CELL VOLUME 93.9 fl (80.0-94.0); MEAN CORPUSCULAR HGB 30.8 pg (27.0-31.0); MEAN CORPUSCULAR HGB CONC 32.8 g/dl (33.0-37.0); MEAN PLATELET VOLUME 9.7 fl (9.6-12.3); MONO # 0.6 10*3/uL (0.1-1.0); NEUT # 6.3 10*3/uL (2.3-7.9); NEUT % 69.5 % (47.0-73.0); PLATELET COUNT AUTOMATED 202 10*3/uL (130-400); RED BLOOD COUNT 4.42 10*6/uL (4.50-5.90); RED CELL DISTRI WIDTH 14.6 % (0-14.5); WHITE BLOOD COUNT 9.1 10*3/uL (4.8-10.8)
[2016-05-22 06:49] LABS: BUN 9 mg/dl (7-24); CARBON DIOXIDE 33 mmol/L (21-32); CHLORIDE 107 mmol/L (98-107); EST GLOM FILT AFRICAN AMERICAN > 60 ml/min; GLUCOSE 93 mg/dL (65-99); POTASSIUM 3.6 mmol/L (3.5-5.1); SODIUM 146 mmol/L (136-145)
[2016-05-22 08:00] VITALS: BP 120/70
[2016-05-22 12:00] VITALS: BP 100/66
[2016-05-22 16:00] VITALS: BP 106/70
[2016-05-22 20:00] VITALS: BP 116/50
[2016-05-23] VITALS: BP 118/74
[2016-05-23 08:00] VITALS: BP 108/62
[2016-05-23 12:00] VITALS: BP 116/56
[2016-05-23 16:00] VITALS: BP 124/52
[2016-05-23 20:00] VITALS: BP 105/62
[2016-05-24] VITALS: BP 111/62
[2016-05-24 08:00] VITALS: BP 92/60
[2016-05-24 12:00] VITALS: BP 96/60
[2016-05-24 16:00] VITALS: BP 90/60
[2016-05-24 20:00] VITALS: BP 109/67
[2016-05-25] VITALS: BP 114/70
[2016-05-25 08:00] VITALS: BP 99/50
[2016-05-25 12:00] VITALS: BP 98/61
[2016-05-25] MEDS ORDERED: HYDROCODON-ACET15 ML PEG (13:55)
[2016-05-25] MEDS ORDERED: NEBULIZER DEVI (13:55)
[2016-05-25] MEDS ORDERED: DUONEB 3 MG/3 ML3 M1 NEB (13:55)
[2016-05-25] MEDS ORDERED: PREDNISONE10 MG PEG (13:55)
[2016-05-25] MEDS ORDERED: THERAVITE PO (13:55)
[2016-05-25] MEDS ORDERED: FIBERSOURCE HN250 ML PEG (13:55)
== END 2016-05-25 17:17 | disposition home health service (06) | DRG 871 ==
LOC: ED 00:28 → EDHOLD 02:18 → 4E 02:18 → ICCU 02:18 → 4E 05-20 12:05
PROVIDERS: Emergency Medicine Emergency Medical Services; Family Medicine; Internal Medicine; Internal Medicine Hospice and Palliative Medicine
PROC: BD1BYZZ Fluoroscopy of Mouth/Oropharynx using Other Contrast (ICD-10-PCS; principal; 2016-05-19)
PROC: 0DH63UZ Insertion of Feeding Device into Stomach, Percutaneous Approach (ICD-10-PCS; 2016-05-20)
DX: A41.9 Sepsis, unspecified organism (principal); I21.4 Non-ST elevation (NSTEMI) myocardial infarction; J69.0 Pneumonitis due to inhalation of food and vomit; E43 Unspecified severe protein-calorie malnutrition; J96.01 Acute respiratory failure with hypoxia; J96.02 Acute respiratory failure with hypercapnia; G71.0 Muscular dystrophy; E87.0 Hyperosmolality and hypernatremia; J15.9 Unspecified bacterial pneumonia; J45.901 Unspecified asthma with (acute) exacerbation; R65.20 Severe sepsis without septic shock; R73.9 Hyperglycemia, unspecified; E83.39 Other disorders of phosphorus metabolism; E87.6 Hypokalemia; E78.5 Hyperlipidemia, unspecified; R13.12 Dysphagia, oropharyngeal phase; D53.9 Nutritional anemia, unspecified; E55.9 Vitamin D deficiency, unspecified; K29.70 Gastritis, unspecified, without bleeding; R13.19 Other dysphagia; K20.9 Esophagitis, unspecified; Z84.89 Family history of other specified conditions; Z88.6 Allergy status to analgesic agent; Z88.0 Allergy status to penicillin; Z82.5 Family history of asthma and other chronic lower respiratory diseases; Z80.0 Family history of malignant neoplasm of digestive organs; Z79.1 Long term (current) use of non-steroidal anti-inflammatories (NSAID); Z79.899 Other long term (current) drug therapy; Z68.27 Body mass index [BMI] 27.0-27.9, adult

== ENCOUNTER → 2016-05-31 | Outpatient (CLI) | payer OTHER ==
[~2016-05-31] MED LIST changes: +COMPLETE M9 MG/15 ML PO; +DUONEB 3 MG/3 ML3 M1 NEB; +FIBERSOURCE HN250 ML PEG; +HYDROCODON-ACET15 ML PEG; +NEBULIZER DEVI; +PREDNISONE10 MG PEG; +THERAVITE PO; +VICODIN ES 7.51 EACH PO; +Wellbutrin Sr100 MG PO
== END | disposition home or self-care (01) ==
LOC: RESCLI 02:45
DX: G71.0 Muscular dystrophy (principal); Z93.1 Gastrostomy status

== ENCOUNTER → 2016-06-08 | Day surgery (SDC) | payer OTHER ==
[~2016-06-08] VITALS: Ht 177.8 cm; Wt 75.3 kg
[~2016-06-08] MED LIST changes: +BACTRIM DS 8001 TAB PO
--- NOTE | ~2016-06-08 | O ---
[place], [place] OPERATIVE NOTE NAME: RITA MELGAR UNIT #: [id number] ROOM: DOCTOR[facility] [birth year] DOS: 06/08/2016 INDICATIONS: The patient has presented with a muscular dystrophy of advanced type, dysphagia secondary to above of neurogenic type, unable to swallow. The patient has had a PEG tube done; however, the PEG tube has fallen out and he has no means of receiving his medications or his feedings. His past medical history as identified above; muscular dystrophy, bedridden, partially aphasic. PROCEDURE: Today's procedure part of investigation is panendoscopy plus PEG tube placement plus dressing of the old ostomy site. PREMEDICATION: Versed and Diprivan. SCOPE: Olympus forward-viewing gastroscope, Q10 video. REPORT: After putting the patient in supine position, scope was introduced. Thereafter, under direct visualization, I advanced through the length of esophagus without difficulty into gastric pouch. Gastritis was noticed. The opening of the old ostomy site from inside is partially closed. The duodenal bulb, second and third part within normal limits. A point away from the existing old ostomy was targeted approximately 3 cm inferior in the left lateral. This was corresponding in the gastric pouch. At this stage, aseptic preparation of the intraabdominal wall was done. 2 mL of Xylocaine was injected. Trocar was introduced into the same spot. Guidewire advanced through the center, which was grasped with forceps. Guidewire pulled out orally, gastrostomy tube tight size 20 was utilized, orally pulled, recovered from the surface of the abdomen. Anchors placed, patency checked, tolerated the procedure well. IMPRESSION: Percutaneous endoscopic gastrostomy for neurogenic dysphagia, advanced muscular dystrophy, aphasia. History of migrated PEG tube, status post dressing of the wound. PLAN AND DISCUSSION: The patient not to be fed till tomorrow. The patient is going to have clear liquid infusion tomorrow into the ostomy site allowing complete healing and closure of the old ostomy site. The patient is going to have antibiotic therapy, vancomycin 1 g to be given here and the patient has allergies to PENICILLIN and MORPHINE. As such a time, I am going to consider Bactrim DS 1 tablet b.i.d. for the next 4 days to be given to assure contamination or infection of the old ostomy site and case was discussed with the family members. [place], [place] OPERATIVE NOTE NAME: RITA MELGAR UNIT #: [id number] ROOM: DOCTOR: LINDSAY JAMISON,MAGDA BIRTHDATE: [birth year] MAGDA MONTOYA MD CM:OPRECORD:OPERATIVE NOTE [id number] MAGDA MONTOYA MD 06/08/16 1102 interface
[2016-06-08 08:19] VITALS: BP 100/64
[2016-06-08 09:30] VITALS: BP 112/64
[2016-06-08 09:45] VITALS: BP 116/74
[2016-06-08 10:00] VITALS: BP 130/73
[2016-06-08 11:06] VITALS: BP 130/73
== END | disposition home or self-care (01) ==
LOC: SDC 06-07 14:00
DX: G71.0 Muscular dystrophy (principal); Z43.1 Encounter for attention to gastrostomy

== ENCOUNTER → 2016-06-27 | Outpatient (CLI) | payer OTHER ==
--- NOTE | ~2016-06-27 | SLPPOC ---
[place], [place] LINEN ROOM ATTENDANT PLAN OF CARE NAME: RITA MELGAR UNIT #: [id number] ROOM: DOCTOR: ESSIE ALMANZAR Speech Language Pathology Plan of Care Page 1 1 (Initial Evaluation) of Patient Name: RITA MELGAR Date: 06/27/2016 10:06 AM : 1960 SOC Date: 06/27/2016 Provider: [facility] Provider #: [id number] Treating Clinician: ALEXANDREA Molina-LINEN ROOM ATTENDANT Referring Physician: ESSIE ALMANZAR Visits From SOC: 1 Onset Date Description Code Primary Diagnosis: 06/27/2016 A000.00 DIAGNOSIS FROM INTERFACE NOT FOUND IN [facility] TABLE Subjective Comments: Initial evaluation created to initiate the electronic medical record. Please see [facility] for details. Initial Level Goals Functional Limitation Reporting Swallowing G8996 - Swallowing functional limitation, current status at therapy episode outset and at reporting intervals Current Status: CL - At least 60 percent but less than 80 percent impaired, limited or restricted G8997 - Swallowing functional limitation, projected goal status, at therapy episode outset, at reporting intervals, and at discharge or to end reporting Goal Status: CL - At least 60 percent but less than 80 percent impaired, limited or restricted G8998 - Swallowing functional limitation, discharge status, at discharge from therapy or to end reporting Discharge Status: CL - At least 60 percent but less than 80 percent impaired, limited or restricted 06/27/2016 10:07:31 AM ESSIE ALMANZAR Date/Time ALEXANDREA Molina-LINEN ROOM ATTENDANT Date I certify the need for these services furnished under this plan of treatment while under my care. State License #: [id number] CM:SLPPOC [id number] 1016 IS THERAPY [facility]
--- NOTE | ~2016-06-27 | PROC NOTE ---
[place], [place] PROCEDURE NOTE NAME: RITA MELGAR [facility] #: [id number] UNIT #: [id number] ROOM: DOCTOR: BELA MONAHAN BIRTHDATE: [birth year] DOS: 06/27/2016 DOCTOR: Dr. Aviles. RADIOLOGIST: Dr. Belcher. BACKGROUND INFORMATION: The patient is a 56-year-old male, who was seen for modified barium swallow. This test was ordered to determine candidacy to resume p.o. intake and assess progress. The patient had been seen for prior modified barium swallow 05/18/2016 during inpatient hospital stay. At that time, he was admitted with a diagnosis of pneumonia and that prior study showed reduced bolus formation and transit premature loss, delayed swallow, severe residue and penetration. He was recommended n.p.o. and since that time has been fed by G-tube. He has been undergoing home health dysphagia therapy. He is showing progress. The patient is anxious to eat by mouth and has requested a second study to determine his ability to eat orally again. The patient has a diagnosis of muscular dystrophy. It had been reported that even prior to his recent hospitalization, he was having difficulty with swallowing. For today's assessment, the patient was alert and able to follow commands. Oral peripheral examination revealed presence of natural teeth, which were in good condition. Labial skills were within functional limits in terms of strength, range of motion, and coordination. Lingual skills were mild to moderately impaired in strength and range of motion. Volitional swallow was weak and delayed. Volitional cough was weak. METHODS AND MATERIALS USED FOR THE EXAM: The patient was positioned in the lateral plane and examination was viewed under fluoroscopy. The patient was presented with a pureed consistency of applesauce mixed with barium, this was presented in half teaspoon amounts. He was also given honey-thick barium by spoon. No other consistencies were given due to his results with the prior mentioned consistencies. ORAL PHASE: The oral phase of the swallow was represented by moderate impairment. Bolus formation and transfer were moderately impaired with both consistencies given. The bolus appeared to move through his mouth only by gravity. Tongue to posterior pharyngeal wall contact was poor. Dasilva functioning was adequate as no nasal regurgitation occurred. PHARYNGEAL PHASE: The pharyngeal swallow was moderately delayed with material again appearing to move via gravity. Once the material entered his vallecula, a weak swallow occurred with laryngeal elevation moderately reduced following the swallow, pulling occurred in the vallecula and with continued feeding also into the piriformis. The patient was unable to completely clear this residue. Strategies were attempted including secondary swallow, hard swallow and liquid wash. These were not effective in clearing the residue and the patient demonstrated no awareness of the residue. Despite his difficulties, no penetration or aspiration occurred; however, he is at high risk for aspiration due to his status. No further consistencies were offered due to his difficulty. ESOPHAGEAL PHASE: This phase of the swallow was not formally assessed during [place], [place] PROCEDURE NOTE NAME: RITA MELGAR UNIT #: [id number] ROOM: DOCTOR: BELA MONAHAN BIRTHDATE: [birth year] this examination. IMPRESSIONS AND RECOMMENDATIONS: Based upon assessment results, this 56-year-old male presents with a moderate oropharyngeal dysphagia. He displayed impairments in bolus formation, oral transit, tongue to posterior pharyngeal wall contact, initiation of swallow and pooling in the pharynx and pyriforms, which he was unaware of, and unable to clear despite strategies. No penetration or aspiration occurred at the time of testing; however, he is at high risk due to his status. Recommend continued n.p.o. and continued dysphagia therapy. The patient and his girlfriend were educated on results and recommendations and verbalized understanding. The patient was disappointed but it was explained that he did show some progress when compared to prior assessment, but the continued therapy was warranted. He verbalized agreement with plan for continued therapy and repeat study after another several weeks to assess progress. The patient asked if he was able to have water. The patient was explained Culp water protocol with permission to consume small sips of water. This had been recommended to him previously also. Thank you very much for this referral. Should you have any questions regarding this patient, please contact the speech pathologist at [phone]. BELA MONAHAN CM:PROCNOTE:PROCEDURE NOTE 1018 1111 BELA MONAHAN
--- NOTE | ~2016-06-27 | SLPPN ---
[place], [place] POWER CRANE OPERATOR PROGRESS NOTE NAME: RITA MELGAR UNIT #: [id number] ROOM: DOCTOR: ESSIE ALMANZAR Speech Language Pathology Treatment Note Page 1 1 of Patient Name: RITA MELGAR Date: 06/27/2016 10:07 AM : 1960 SOC Date: 06/27/2016 [facility] Provider #: [id number] Treating Clinician: ALEXANDREA Molina-POWER CRANE OPERATOR Referring Physician: ESSIE ALMANZAR Onset Date Description Code Primary Diagnosis: 06/27/2016 A000.00 DIAGNOSIS FROM INTERFACE NOT FOUND IN [place] TABLE Time In: 09:00 AM Time Out: 10:00 AM POWER CRANE OPERATOR Interventions and CPT Codes Consisted of: CPT Code Modifiers Minutes Units MOTION FLUOROSCOPY/SWALLOW 97210 60 1 Total Minutes: 60 Total Timed Minutes: 0 Total Untimed Minutes: 60 Total Units: 1 Total Timed Units: 0 Total Untimed Units: 1 06/27/2016 10:08:22 AM ALEXANDREA Molina-POWER CRANE OPERATOR Date/Time State License #: [id number] CM:ASHELYPN 1016 1016 IS THERAPY [place]
--- NOTE | ~2016-06-27 | SLPIE ---
[place], [place] BEHAVIORAL HEALTH THERAPIST INITIAL EVALUATION NAME: RITA MELGAR UNIT #: [id number] ROOM: DOCTOR: ESSIE ALMANZAR Speech Language Pathology Initial Evaluation Page 1 1 of Patient Name: TALIARITA J Date: 06/27/2016 10:06 AM : 1960 SOC Date: 06/27/2016 Provider: [facility] Provider #: [id number] Treating Clinician: ALEXANDREA Molina-ASHELY Referring Physician: ESSIE ALMANZAR Patient Information Address: [address] [place] [address] Physician: ESSIE ALMANZAR Physician #: [facility], [facility], Zip: [place], [place] [address] Occupation: Unknown # of Approved Visits: 0 Gender: Male Acid Remover: LULI PADILLA Rehabilitation Information / History Onset Date Code Description Primary Diagnosis: 06/27/2016 A000.00 DIAGNOSIS FROM INTERFACE NOT FOUND IN [place] TABLE Subjective Comments: Initial evaluation created to initiate the electronic medical record. Please see [employer] for details. Clinical Findings Functional Goals Functional Limitation Reporting Swallowing G8996 - Swallowing functional limitation, current status at therapy episode outset and at reporting intervals Current Status: CL - At least 60 percent but less than 80 percent impaired, limited or restricted G8997 - Swallowing functional limitation, projected goal status, at therapy episode outset, at reporting intervals, and at discharge or to end reporting Goal Status: CL - At least 60 percent but less than 80 percent impaired, limited or restricted G8998 - Swallowing functional limitation, discharge status, at discharge from therapy or to end reporting Discharge Status: CL - At least 60 percent but less than 80 percent impaired, limited or restricted 06/27/2016 10:07:31 AM ALEXANDREA Molina-ASHELY Date/Time [place], [place] BEHAVIORAL HEALTH THERAPIST INITIAL EVALUATION NAME: RITA MELGAR UNIT #: [id number] ROOM: DOCTOR: ESSIE ALMANZAR [facility] License #: [id number] CM:SLPIE 1016 1016 IS THERAPY [place]
== END | disposition home or self-care (01) ==
LOC: RAD/SH 08:54
DX: A00.0 Cholera due to Vibrio cholerae 01, biovar cholerae (principal); G71.0 Muscular dystrophy; R13.10 Dysphagia, unspecified

== ENCOUNTER → 2016-08-23 | Outpatient (CLI) | payer OTHER ==
[~2016-08-23] MED LIST changes: +NORCO 7.5-3251 EACH PO; +SEPTRA DS 800 M1 TAB PO
--- NOTE | ~2016-08-23 | PROC NOTE ---
[place], [place] PROCEDURE NOTE [id number] UNIT #: [id number] ROOM: DOCTOR: BELA MONAHAN BIRTHDATE: [birth year] DOS: 08/23/2016 MODIFIED BARIUM SWALLOW DOCTOR: Sr. Marin. RADIOLOGIST: Dr. Grubbs. BACKGROUND INFORMATION: The patient a 56-year-old male who was seen for a modified barium. This test was ordered to determine progress and assess candidacy for resumption of p.o. feeding. This patient is diagnosed with muscular dystrophy. He has been tube fed. He is anxious for removal of the tube and to be able to eat by mouth again. He has been undergoing home health dysphagia therapy and making progress, although ordered n.p.o., patient admits that he does eat by mouth. He stated that recently he consumed a plate of steak, rice and vegetables. The patient states that when he is eating, he has no difficulty. Most recent modified barium swallow had been conducted 06/27/2016 with recommendation for n.p.o. All prior modified barium swallow studies were with recommendations of po as well due to severity of skills. For today's assessment, the patient was alert and able to follow all commands. Respiratory status was within functional limits. The patient does not require oxygen. Oral peripheral examination revealed presence of natural teeth which were in good condition. Labial and buccal skills were within normal limits in terms of strength, range of motion and coordination. Lingual skills were mildly reduced in strength and range of motion. Volitional swallow was delayed. Volitional cough was weak. METHODS AND MATERIALS USED FOR THE EXAM: The patient was positioned in the lateral plane and examination was viewed under fluoroscopy. The patient was presented with a variety of consistencies to assess swallowing skills. The patient was given multiple bites of each consistency in order to assess how he would do as feeding progresses. He was given applesauce mixed with barium presented in half to 3/4 teaspoon amounts. He was presented with a barium coated cookie and sandwich given in bite size pieces. He was also presented with both thin and nectar thick barium taken by cup. He consumed these in single sip size amount. ORAL PHASE: The oral phase of the swallow was represented by mild to moderate dysfunction. He was able to achieve adequate labial seal around cup and spoon with no anterior loss. Bolus formation and transit were mildly impaired with all consistencies. Mastication was slow due to his overall weakness. Tongue to palate contact was adequate with all consistencies. Velar functioning was adequate. Tongue to posterior pharyngeal wall contact was moderately impaired. PHARYNGEAL PHASE: The pharyngeal swallow was mildly delayed and weak in general. 0 Reduced laryngeal elevation was displayed with all consistencies. Epiglottic function was reduced with liquids. Upon swallow with pureed consistencies, which were first given, he did exhibit some residue in the vallecula, which he was able to mostly clear with a secondary swallow. As feeding progressed to swallowing solid consistencies, as he swallowed more and [place], [place] PROCEDURE NOTE NAME: [facility]: [id number] UNIT #: [id number] ROOM: DOCTOR: BELA MONAHAN BIRTHDATE: [birth year] more times, he tented to build more residue in the pharynx. He was not aware of the residue. He was given cues re-swallow, but as the feeding progressed, he was no longer able to completely clear the residue and the residue continued to build in the vallecula and pyriforms. Hard swallows were not effective in clearing the residue. Liquid wash was attempted; however, not effective and did result in penetration with nectar thick barium and penetration with eventual aspiration of thin liquid barium. A slight cough was displayed when aspiration with thin liquid barium occurred. ESOPHAGEAL PHASE: This phase of the swallow was not formally assessed during this examination. IMPRESSIONS AND RECOMMENDATIONS: Based upon assessment results, this 56-year-old patient exhibits a [id number] oropharyngeal dysphagia. Bolus formation, transit and mastication more impaired. Tongue to posterior pharyngeal wall contact was moderately impaired and resulted in pooling in the pharyngeal ____. His pharyngeal swallow was delayed, slow and week. Early in the assessment, he was able to clear the residue with the re-swallow, but as the test progressed, residue buildup and he was not able to clear it. He was not aware of the residue. Liquid wash was attempted, but did not clear the residue and resulted in penetration and aspiration due to reduced laryngeal elevation and epiglottic function and buildup of residue. Recommend continued n.p.o. status. Clinician is aware that the patient will continue to eat by mouth as he has been eating by mouth consistently; therefore a lengthy discussion was held with the patient and his girlfriend regarding results and recommendations for small amounts of pleasure foods using safety strategies such as small bites and sips, double swallows and alternating liquids and solids. The patient is aware of signs and symptoms of aspiration as well as aspiration risk as he has been educated multiple times in regards to this. Results of this study do show an improvement from prior MBS studies. As the patient is showing progress, it is recommended that he continue with home health dysphagia therapy focusing on exercises, thermal stimulation, NMES, education and use of strategies. The patient and his girlfriend verbalized understanding of information provided. Thank you very much for this referral. Should you have any questions regarding this study, please contact the speech pathologist at [phone]. BELA MONAHAN CM:PROCNOTE:PROCEDURE NOTE 1148 2151 BELA MONAHAN
--- NOTE | ~2016-08-23 | SLPIE ---
[place], [place] MASTER PILOT INITIAL EVALUATION NAME: RITA MELGAR UNIT #: [id number] ROOM: DOCTOR: [facility]EL FLORES [facility] Initial Evaluation Page 1 1 of Patient Name: RITA MELGAR J Date: 08/23/2016 10:53 AM : 1960 SOC Date: 08/23/2016 Provider: [facility] Provider #: [id number] Treating Clinician: ALEXANDREA Molina-MASTER PILOT Referring Physician: MANA FLORES Patient Information Address: [address] [place] [address] Physician: MANA FLORES Physician #: [facility], [facility], Zip: [place], [place] [address] Occupation: Unknown # of Approved Visits: 0 Gender: Male Slat Basket Maker Machine: LULI PADILLA Rehabilitation Information / History Onset Date Code Description Primary Diagnosis: 06/27/2016 R13.10 Dysphagia, unspecified Subjective Comments: Initial evaluation created to initiate the electronic medical record. Please see [employer] for details. Clinical Findings Functional Goals Functional Limitation Reporting Swallowing G8996 - Swallowing functional limitation, current status at therapy episode outset and at reporting intervals Current Status: CK - At least 40 percent but less than 60 percent impaired, limited or restricted G8997 - Swallowing functional limitation, projected goal status, at therapy episode outset, at reporting intervals, and at discharge or to end reporting Goal Status: CK - At least 40 percent but less than 60 percent impaired, limited or restricted G8998 - Swallowing functional limitation, discharge status, at discharge from therapy or to end reporting Discharge Status: CK - At least 40 percent but less than 60 percent impaired, limited or restricted 08/23/2016 10:54:12 AM ALEXANDREA Molina-MASTER PILOT Date/Time [place], [place] MASTER PILOT INITIAL EVALUATION NAME: RITA MELGAR UNIT #: [id number] ROOM: DOCTOR[facility] License #: [id number] CM:SLPIE 1059 1059 IS THERAPY [place]
--- NOTE | ~2016-08-23 | SLPPN ---
[place], [place] HOUSEHOLD COORDINATOR PROGRESS NOTE NAME: RITA MELGAR UNIT #: [id number] ROOM: DOCTOR: OZIEL FLORES MD,MANA Speech Language Pathology Treatment Note Page 1 1 of Patient Name: RITA MELGAR Date: 08/23/2016 10:54 AM : 1960 SOC Date: 08/23/2016 [facility]: [facility] Provider #: [id number] Treating Clinician: ALEXANDREA Molina-HOUSEHOLD COORDINATOR Referring Physician: MANA FLORES Onset Date Description Code Primary Diagnosis: 06/27/2016 R13.10 Dysphagia, unspecified Time In: 09:45 AM Time Out: 10:45 AM HOUSEHOLD COORDINATOR Interventions and CPT Codes Consisted of: CPT Code Modifiers Minutes Units MOTION FLUOROSCOPY/SWALLOW 56353 60 1 Total Minutes: 60 Total Timed Minutes: 0 Total Untimed Minutes: 60 Total Units: 1 Total Timed Units: 0 Total Untimed Units: 1 08/23/2016 10:55:03 AM ALEXANDREA Molina-HOUSEHOLD COORDINATOR Date/Time State License #: [id number] CM:CHECO 1059 1059 IS THERAPY [place]
--- NOTE | ~2016-08-23 | SLPPOC ---
[place], [place] OBSTETRICIAN/GYNECOLOGIST PLAN OF CARE NAME: RITA MELGAR UNIT #: [id number] ROOM: DOCTOR: OZIEL FLORES MD,MANA Speech Language Pathology Plan of Care Page 1 1 (Initial Evaluation) of Patient Name: RITA MELGAR Date: 08/23/2016 10:53 AM : 1960 SOC Date: 08/23/2016 Provider: [facility] Provider #: [id number] Treating Clinician: ALEXANDREA Molina-OBSTETRICIAN/GYNECOLOGIST Referring Physician: MANA FLORES Visits From SOC: 1 Onset Date Description Code Primary Diagnosis: 06/27/2016 R13.10 Dysphagia, unspecified Subjective Comments: Initial evaluation created to initiate the electronic medical record. Please see [employer] for details. Initial Level Goals Functional Limitation Reporting Swallowing G8996 - Swallowing functional limitation, current status at therapy episode outset and at reporting intervals Current Status: CK - At least 40 percent but less than 60 percent impaired, limited or restricted G8997 - Swallowing functional limitation, projected goal status, at therapy episode outset, at reporting intervals, and at discharge or to end reporting Goal Status: CK - At least 40 percent but less than 60 percent impaired, limited or restricted G8998 - Swallowing functional limitation, discharge status, at discharge from therapy or to end reporting Discharge Status: CK - At least 40 percent but less than 60 percent impaired, limited or restricted 08/23/2016 10:54:12 AM MANA FLORES Date/Time ALEXANDREA Molina-OBSTETRICIAN/GYNECOLOGIST Date I certify the need for these services furnished under this plan of treatment while under my care. State License #: [id number] CM:SLPPOC 1059 1059 IS THERAPY [place]
== END | disposition home or self-care (01) ==
LOC: RAD/SH 09:25
DX: R13.12 Dysphagia, oropharyngeal phase (principal); G71.0 Muscular dystrophy; R05 Cough

== ENCOUNTER 2016-08-25 13:16 | Emergency (ER) | payer OTHER ==
[~2016-08-25] VITALS: Ht 177.8 cm; Wt 95.3 kg
== END 2016-08-25 16:26 | disposition home or self-care (01) ==
LOC: ED 13:16
DX: S01.01XA Laceration without foreign body of scalp, initial encounter (principal); M54.9 Dorsalgia, unspecified; Z88.0 Allergy status to penicillin; Z88.6 Allergy status to analgesic agent; W18.39XA Other fall on same level, initial encounter; Y93.89 Activity, other specified; Y92.89 Other specified places as the place of occurrence of the external cause; Y99.8 Other external cause status

== ENCOUNTER 2016-11-02 12:23 | Emergency (ER) | payer OTHER ==
[~2016-11-02] VITALS: Wt 79.4 kg
[2016-11-02 13:11] LABS: BASO % 0.7 % (0.0-1.0); EOS # 0.2 10*3/uL (0.0-0.4); EOS % 3.9 % (1.0-4.0); HEMATOCRIT 45.7 % (42.0-52.0); HEMOGLOBIN 14.5 g/dl (14.0-18.0); LYMPH # 1.6 10*3/uL (1.3-4.4); LYMPH % 29.2 % (27.0-41.0); MEAN CELL VOLUME 94.4 fl (80.0-94.0); MEAN CORPUSCULAR HGB CONC 31.7 g/dl (33.0-37.0); MEAN PLATELET VOLUME 12.1 fl (9.6-12.3); MONO # 0.5 10*3/uL (0.1-1.0); MONO % 9.1 % (3.0-9.0); NEUT # 3.2 10*3/uL (2.3-7.9); NEUT % 56.9 % (47.0-73.0); PLATELET COUNT AUTOMATED 144 10*3/uL (130-400); RED BLOOD COUNT 4.84 10*6/uL (4.50-5.90); RED CELL DISTRI WIDTH 14.6 % (0-14.5); WHITE BLOOD COUNT 5.6 10*3/uL (4.8-10.8)
[2016-11-02 13:26] LABS: ALBUMIN 3.2 gm/dl (3.1-4.5); ALKALINE PHOSPHATASE 159 U/L (45-117); BUN 20 mg/dl (7-24); CHLORIDE 109 mmol/L (98-107); CREATININE 0.47 mg/dL (0.70-1.30); POTASSIUM 4.2 mmol/L (3.5-5.1); SGOT/AST 83 IU/L (3-35); SGPT/ALT 118 U/L (12-78); SODIUM 142 mmol/L (136-145); TOTAL PROTEIN 7.1 gm/dL (6.4-8.2)
== END 2016-11-02 13:45 | disposition home or self-care (01) ==
LOC: ED 12:23
PROVIDERS: Physician Assistant
DX: K94.29 Other complications of gastrostomy (principal); Z90.89 Acquired absence of other organs; Z98.890 Other specified postprocedural states; Z88.0 Allergy status to penicillin; Z88.5 Allergy status to narcotic agent

== ENCOUNTER → 2016-11-10 | Outpatient (CLI) | payer OTHER ==
--- NOTE | ~2016-11-10 | SLPIE ---
[place], [place] MACHINIST INSTRUCTOR INITIAL EVALUATION NAME: RITA MELGAR UNIT #: [id number] ROOM: DOCTOR: ESSIE ALMANZAR Speech Language Pathology Initial Evaluation Page 1 1 of Patient Name: RITA MELGAR Date: 11/10/2016 10:58 AM : 1960 SOC Date: 11/10/2016 [facility]: [facility] Provider #: [id number] Treating Clinician: ALEXANDREA Molina-ASHELY Referring Physician: ESSIE ALMANZAR Patient Information Address: [address] [place] [address] RT Physician: ESSIE ALMANZAR Physician #: [facility], [facility], Zip: [place] [address] Occupation: Unknown # of Approved Visits: 0 Gender: Male Highway Landscape Architect: LULI PADILLA Rehabilitation Information / History Onset Date Code Description Primary Diagnosis: 11/10/2016 A000.00 DIAGNOSIS FROM INTERFACE NOT FOUND IN [place] TABLE Subjective Comments: Initial evaluation created to initiate the electronic medical record. Please see [employer] for details. Clinical Findings Functional Goals Functional Limitation Reporting Swallowing G8996 - Swallowing functional limitation, current status at therapy episode outset and at reporting intervals Current Status: CK - At least 40 percent but less than 60 percent impaired, limited or restricted G8997 - Swallowing functional limitation, projected goal status, at therapy episode outset, at reporting intervals, and at discharge or to end reporting Goal Status: CK - At least 40 percent but less than 60 percent impaired, limited or restricted G8998 - Swallowing functional limitation, discharge status, at discharge from therapy or to end reporting Discharge Status: CK - At least 40 percent but less than 60 percent impaired, limited or restricted 11/10/2016 10:59:45 AM RIGO Molina Date/Time [place], [place] MACHINIST INSTRUCTOR INITIAL EVALUATION NAME: RITA MELGAR UNIT #: [id number] ROOM: DOCTOR: ESSIE ALMANZAR [facility] License #: [id number] CM:SLPIE 1103 1103 IS THERAPY [place]
--- NOTE | ~2016-11-10 | SLPPN ---
[place], [place] PASSENGER RELATIONS REPRESENTATIVE PROGRESS NOTE NAME: RITA MELGAR UNIT #: [id number] ROOM: DOCTOR: ESSIE ALMANZAR Speech Language Pathology Treatment Note Page 1 1 of Patient Name: RITA MELGAR Date: 11/10/2016 10:59 AM : 1960 SOC Date: 11/10/2016 Provider: [facility] Provider #: [id number] Treating Clinician: ALEXANDREA Molina-PASSENGER RELATIONS REPRESENTATIVE Referring Physician: ESSIE ALMANZAR Onset Date Description Code Primary Diagnosis: 11/10/2016 A000.00 DIAGNOSIS FROM INTERFACE NOT FOUND IN [place] TABLE Time In: 10:00 AM Time Out: 11:00 AM PASSENGER RELATIONS REPRESENTATIVE Interventions and CPT Codes Consisted of: CPT Code Modifiers Minutes Units MOTION FLUOROSCOPY/SWALLOW 03752 60 1 Total Minutes: 60 Total Timed Minutes: 0 Total Untimed Minutes: 60 Total Units: 1 Total Timed Units: 0 Total Untimed Units: 1 11/10/2016 11:00:37 AM ALEXANDREA Molina-PASSENGER RELATIONS REPRESENTATIVE Date/Time State License #: [id number] CM:[place] 1104 1103 IS THERAPY [place]
--- NOTE | ~2016-11-10 | PROC NOTE ---
[place], [place] PROCEDURE NOTE [id number] UNIT #: [id number] ROOM: DOCTOR: BELA MONAHAN BIRTHDATE: [birth year] DOS: 11/10/2016 MODIFIED BARIUM SWALLOW. ORDERING DOCTOR: Dr. Aviles. RADIOLOGIST: Dr. Chandler BACKGROUND INFORMATION: The patient, a 56-year-old male was seen for modified barium swallow. This test is being performed as a followup to determine progress displayed from therapy and candidacy for any p.o. intake. This patient is diagnosed with muscular dystrophy. He has undergone several prior modified barium swallow studies, all with recommendations for n.p.o. status due to significant residue in the pharynx and aspiration. He is tube fed. The patient is frustrated with the presence of the tube and is hoping to be able to eat. He admits that he does occasionally try to eat and often chokes when doing so. For today's assessment, the patient was alert and able to follow commands. Slurred speech was displayed. Respiratory status was noted to be congested and at baseline. Oral peripheral examination revealed presence of natural teeth, missing bottom back teeth were noted. Labial skills were mildly impaired in strength and range of motion. Lingual skills were moderately impaired in strength and range of motion. Patient's volitional swallow was delayed and weak; volitional cough was significantly weak. METHODS AND MATERIALS USED FOR THE EXAM: The patient was positioned in the lateral plane and examination was viewed under fluoroscopy. The patient was presented with a variety of consistencies to assess swallowing skills including applesauce mixed with barium presented in half teaspoon amounts, barium-coated banana presented in bite size piece and nectar and thin liquid barium presented in 20 mL amounts by Medicine cup. ORAL PHASE: The patient achieved adequate labial seal around cup and spoon with no anterior loss. Bolus formation and transit were impaired with all consistencies mildly. Mastication of soft solid was mildly impaired. Tongue to palate contact was adequate. Tongue to posterior pharyngeal wall contact was moderate to severely impaired. PHARYNGEAL PHASE: The pharyngeal swallow was weak and with mild to moderately reduced elevation. The pharyngeal swallow with food and liquid consistencies was timely. Following the swallow, a significant amount of residue was observed in the vallecula and throughout the pharynx. The patient was not aware of this residue and made no attempt to clear it indicating impaired sensation. He was to re-swallow in order to clear the residue. His re-swallows were delayed and difficulty to initiate and not helpful in completely clearing the residue. Liquid wash was also attempted to clear the residue, but again was not effective and resulted in continued pharyngeal residue. No penetration or aspiration occurred with any consistency; however, he presents at high risk due to his status. ESOPHAGEAL PHASE: This phase of the swallow was not formally assessed during [place], [place] PROCEDURE NOTE NAME: RITA MELGAR UNIT #: [id number] ROOM: DOCTOR: BELA MONAHAN BIRTHDATE: [birth year] this examination. IMPRESSIONS AND RECOMMENDATIONS: Based upon assessment results, this 56-year-old patient displayed a moderate oropharyngeal dysphagia. Mastication, bolus formation, oral transit and tongue to posterior pharyngeal wall contact were impaired. Significant residue remained throughout the pharynx post-swallow which patient was unaware of, and unable to clear despite strategies attempted. No penetration or aspiration occurred, but he presents at high risk for aspiration due to his condition. Recommend the patient remain n.p.o. The patient has received prior MBS studies as well as dysphagia therapy; however, today's results showed very limited gains; therefore, continued therapy would not be warranted at this time. Results and recommendations were shared with the patient and his girlfriend, Wendy and they verbalized understanding. Thank you very much for this referral. Should you have any questions regarding this patient, please contact the speech pathologist at [phone]. BELA MONAHAN CM:PROCNOTE:PROCEDURE NOTE [id number] BELA MONAHAN
--- NOTE | ~2016-11-10 | SLPPOC ---
[place], [place] COUNTER CHECKER PLAN OF CARE NAME: RITA MELGAR UNIT #: [id number] ROOM: DOCTOR: ESSIE ALMANZAR Speech Language Pathology Plan of Care Page 1 1 (Initial Evaluation) of Patient Name: RITA MELGAR Date: 11/10/2016 10:58 AM : 1960 SOC Date: 11/10/2016 Provider: [facility] Provider #: [id number] Treating Clinician: ALEXANDREA Molina-COUNTER CHECKER Referring Physician: ESSIE ALMANZAR Visits From SOC: 1 Onset Date Description Code Primary Diagnosis: 11/10/2016 A000.00 DIAGNOSIS FROM INTERFACE NOT FOUND IN [facility] TABLE Subjective Comments: Initial evaluation created to initiate the electronic medical record. Please see [facility] for details. Initial Level Goals Functional Limitation Reporting Swallowing G8996 - Swallowing functional limitation, current status at therapy episode outset and at reporting intervals Current Status: CK - At least 40 percent but less than 60 percent impaired, limited or restricted G8997 - Swallowing functional limitation, projected goal status, at therapy episode outset, at reporting intervals, and at discharge or to end reporting Goal Status: CK - At least 40 percent but less than 60 percent impaired, limited or restricted G8998 - Swallowing functional limitation, discharge status, at discharge from therapy or to end reporting Discharge Status: CK - At least 40 percent but less than 60 percent impaired, limited or restricted 11/10/2016 10:59:45 AM ESSIE ALMANZAR Date/Time SAMANTHA MolinaCOUNTER CHECKER Date I certify the need for these services furnished under this plan of treatment while under my care. State License #: [id number] CM:SLPPOC 1104 1103 IS THERAPY [facility]
--- NOTE | 2016-11-10 10:32 | NUR ---
SPEECH PATHOLOGY Outpatient MBS completed this date. Patient was alert and cooperative with slurred speech and weak oral strength and ROM. Patient was assessed with puree, soft solid, nectar thick and thin liquid consistencies. Patient displayed a mod oropharyngeal dysphagia. Mastication and bolus formation, oral transit and tongue to posterior pharyngeal wall contact were impaired. Significant residue remained throughout the pharynx post swallow. Patient was not aware of the residue indicating impaired sensation. He was cued to reswallow in an attempt to clear residue. He had difficulty initiating reswallows and they were not helpful in completely clearing the residue. Liquid wash was also attempted but not helpful. No penetration or aspiration occurred but he presents at high risk for aspiration due to his condition. Recommend he remain NPO. Patient has received prior MBS studies as well as dysphagia therapy however today's results showed very limited gains therefore continued therapy would not be warranted at this time. Results and kasey. were shared with patient and his girlfriend Wendy and they verbalized understanding. Dictated report to follow. Thank you for this referral. BELA MONAHAN MSCCC-PRESENTATION DESIGNER
== END | disposition home or self-care (01) ==
LOC: RAD/SH 09:53
DX: R13.10 Dysphagia, unspecified (principal); G71.0 Muscular dystrophy

== ENCOUNTER 2017-01-24 07:43 | Emergency (ER) | payer OTHER ==
[~2017-01-24] VITALS: Wt 79.4 kg
[2017-01-24 08:41] LABS: BASO % 0.3 % (0.0-1.0); EOS % 0.4 % (1.0-4.0); HEMATOCRIT 45.2 % (42.0-52.0); HEMOGLOBIN 14.8 g/dl (14.0-18.0); LYMPH # 0.5 10*3/uL (1.3-4.4); LYMPH % 4.4 % (27.0-41.0); MEAN CELL VOLUME 94.4 fl (80.0-94.0); MEAN CORPUSCULAR HGB 30.9 pg (27.0-31.0); MEAN CORPUSCULAR HGB CONC 32.7 g/dl (33.0-37.0); MEAN PLATELET VOLUME 11.9 fl (9.6-12.3); MONO # 0.8 10*3/uL (0.1-1.0); MONO % 7.2 % (3.0-9.0); NEUT # 9.3 10*3/uL (2.3-7.9); NEUT % 87.4 % (47.0-73.0); PLATELET COUNT AUTOMATED 142 10*3/uL (130-400); RED BLOOD COUNT 4.79 10*6/uL (4.50-5.90); RED CELL DISTRI WIDTH 14.9 % (0-14.5); WHITE BLOOD COUNT 10.6 10*3/uL (4.8-10.8)
[2017-01-24 08:54] LABS: ACT PARTIAL THROMBO TIME 25.6 SECONDS (19.5-32.1)
[2017-01-24 08:56] LABS: ALBUMIN 3.4 gm/dl (3.1-4.5); ALKALINE PHOSPHATASE 197 U/L (45-117); BUN 14 mg/dl (7-24); CHLORIDE 104 mmol/L (98-107); CREATININE 0.56 mg/dL (0.70-1.30); LIPASE 92 U/L (73-393); SGOT/AST 142 IU/L (3-35); SGPT/ALT 207 U/L (12-78); SODIUM 140 mmol/L (136-145); TOTAL PROTEIN 7.8 gm/dL (6.4-8.2)
[2017-01-24 08:58] LABS: TROPONIN I < 0.015 ng/ml (<0.045)
[2017-01-24] MEDS ORDERED: LEVAQUIN750 M1 PO (11:05)
== END 2017-01-24 13:26 | disposition home or self-care (01) ==
LOC: ED 07:43
PROVIDERS: Emergency Medicine
DX: J20.9 Acute bronchitis, unspecified (principal); L53.9 Erythematous condition, unspecified; Z88.0 Allergy status to penicillin; Z88.6 Allergy status to analgesic agent; W01.190A Fall on same level from slipping, tripping and stumbling with subsequent striking against furniture, initial encounter; Y93.02 Activity, running; Y92.89 Other specified places as the place of occurrence of the external cause; Y99.8 Other external cause status

== ENCOUNTER 2017-01-26 08:22 | Inpatient (IN) | payer OTHER ==
[~2017-01-26] VITALS: Ht 170.1 cm; Wt 76.4 kg
[2017-01-26] VITALS (8 sets, daily range): BP systolic 105–170; BP diastolic 56–90
[~2017-01-26 08:22] MED LIST changes: +LEVAQUIN750 M1 PO
[2017-01-26 09:03] LABS: BASO % 0.4 % (0.0-1.0); EOS # 0.4 10*3/uL (0.0-0.4); EOS % 4.6 % (1.0-4.0); HEMATOCRIT 43.6 % (42.0-52.0); HEMOGLOBIN 14.1 g/dl (14.0-18.0); LYMPH % 11.1 % (27.0-41.0); MEAN CELL VOLUME 95.4 fl (80.0-94.0); MEAN CORPUSCULAR HGB 30.9 pg (27.0-31.0); MEAN CORPUSCULAR HGB CONC 32.3 g/dl (33.0-37.0); MONO # 0.8 10*3/uL (0.1-1.0); MONO % 8.4 % (3.0-9.0); NEUT # 6.9 10*3/uL (2.3-7.9); NEUT % 75.2 % (47.0-73.0); PLATELET COUNT AUTOMATED 161 10*3/uL (130-400); RED BLOOD COUNT 4.57 10*6/uL (4.50-5.90); RED CELL DISTRI WIDTH 14.8 % (0-14.5); WHITE BLOOD COUNT 9.2 10*3/uL (4.8-10.8)
[2017-01-26 09:17] LABS: ALBUMIN 3.1 gm/dl (3.1-4.5); ALKALINE PHOSPHATASE 214 U/L (45-117); BUN 13 mg/dl (7-24); CHLORIDE 105 mmol/L (98-107); POTASSIUM 4.3 mmol/L (3.5-5.1); SGOT/AST 115 IU/L (3-35); SGPT/ALT 206 U/L (12-78); SODIUM 143 mmol/L (136-145); TOTAL PROTEIN 7.5 gm/dL (6.4-8.2)
[2017-01-26] MEDS ORDERED: JEVITY 1 CAL237 ML PO (12:57)
[2017-01-27] VITALS: BP 117/64
[2017-01-27 07:20] LABS: BASO % 0.3 % (0.0-1.0); EOS # 0.3 10*3/uL (0.0-0.4); EOS % 3.1 % (1.0-4.0); HEMATOCRIT 41.8 % (42.0-52.0); HEMOGLOBIN 13.3 g/dl (14.0-18.0); LYMPH # 0.8 10*3/uL (1.3-4.4); MEAN CELL VOLUME 97.2 fl (80.0-94.0); MEAN CORPUSCULAR HGB 30.9 pg (27.0-31.0); MEAN CORPUSCULAR HGB CONC 31.8 g/dl (33.0-37.0); MEAN PLATELET VOLUME 11.6 fl (9.6-12.3); MONO # 0.8 10*3/uL (0.1-1.0); MONO % 8.3 % (3.0-9.0); NEUT # 7.1 10*3/uL (2.3-7.9); NEUT % 79.1 % (47.0-73.0); PLATELET COUNT AUTOMATED 157 10*3/uL (130-400)
[2017-01-27 07:36] LABS: ALBUMIN 2.9 gm/dl (3.1-4.5); BUN 8 mg/dl (7-24); CHLORIDE 106 mmol/L (98-107); POTASSIUM 3.8 mmol/L (3.5-5.1); SODIUM 144 mmol/L (136-145)
[2017-01-27 07:47] LABS: ALKALINE PHOSPHATASE 231 U/L (45-117); PHOSPHOROUS 2.1 mg/dL (2.5-4.9); SGOT/AST 120 IU/L (3-35); SGPT/ALT 215 U/L (12-78); THYROID STIM HORMONE (HS) 0.456 uIU/ml (0.358-4.75)
[2017-01-27 08:00] VITALS: BP 128/62
[2017-01-27 10:23] LABS: VITAMIN D, 25-HYDROXY 18.1 ng/mL (30-100)
[2017-01-27 12:00] VITALS: BP 108/49
[2017-01-27 16:00] VITALS: BP 125/65
[2017-01-27 20:00] VITALS: BP 127/60
[2017-01-28] VITALS: BP 99/75
[2017-01-28 04:39] LABS: BASO % 0.3 % (0.0-1.0); EOS # 0.2 10*3/uL (0.0-0.4); EOS % 2.1 % (1.0-4.0); HEMATOCRIT 40.3 % (42.0-52.0); HEMOGLOBIN 12.9 g/dl (14.0-18.0); LYMPH # 1.7 10*3/uL (1.3-4.4); LYMPH % 20.1 % (27.0-41.0); MEAN CELL VOLUME 95.5 fl (80.0-94.0); MEAN CORPUSCULAR HGB 30.6 pg (27.0-31.0); MEAN PLATELET VOLUME 11.7 fl (9.6-12.3); MONO # 0.7 10*3/uL (0.1-1.0); MONO % 8.1 % (3.0-9.0); NEUT % 69.1 % (47.0-73.0); PLATELET COUNT AUTOMATED 181 10*3/uL (130-400); RED BLOOD COUNT 4.22 10*6/uL (4.50-5.90); WHITE BLOOD COUNT 8.7 10*3/uL (4.8-10.8)
[2017-01-28 05:04] LABS: BUN 9 mg/dl (7-24); CHLORIDE 106 mmol/L (98-107); CREATININE 0.44 mg/dL (0.70-1.30); POTASSIUM 4.1 mmol/L (3.5-5.1); SODIUM 144 mmol/L (136-145)
[2017-01-28 08:00] VITALS: BP 113/65
[2017-01-28] MEDS ORDERED: DOXYCYCLINE100 M3 PO (11:11)
[2017-01-28] MEDS ORDERED: ORGAN-1 NR200 MG PEG (11:11)
== END 2017-01-28 12:10 | disposition home or self-care (01) | DRG 177 ==
LOC: ED 08:22 → EDHOLD 09:33 → 4E 09:58
PROVIDERS: Emergency Medicine; Student in an Organized Health Care Education/Training Program; ADMIT Internal Medicine
DX: J15.6 Pneumonia due to other Gram-negative bacteria (principal); E43 Unspecified severe protein-calorie malnutrition; G71.11 Myotonic muscular dystrophy; J98.11 Atelectasis; R13.10 Dysphagia, unspecified; Z93.1 Gastrostomy status; E78.5 Hyperlipidemia, unspecified; D75.89 Other specified diseases of blood and blood-forming organs; D72.9 Disorder of white blood cells, unspecified; R73.9 Hyperglycemia, unspecified; R74.0 Nonspecific elevation of levels of transaminase and lactic acid dehydrogenase [LDH]; D64.9 Anemia, unspecified; E55.9 Vitamin D deficiency, unspecified; Z68.26 Body mass index [BMI] 26.0-26.9, adult; I25.2 Old myocardial infarction; Z83.6 Family history of other diseases of the respiratory system; Z80.0 Family history of malignant neoplasm of digestive organs; Z84.89 Family history of other specified conditions; Z88.0 Allergy status to penicillin; Z88.8 Allergy status to other drugs, medicaments and biological substances

== ENCOUNTER → 2017-05-12 | Day surgery (SDC) | payer OTHER ==
[~2017-05-12] VITALS: Ht 187.9 cm; Wt 77.1 kg
[~2017-05-12] MED LIST changes: +ADVIL200 M1 PO; +DOXYCYCLINE100 M3 PO; +JEVITY 1 CAL237 ML PO; +ORGAN-1 NR200 MG PEG
--- NOTE | ~2017-05-12 | O ---
[place], [place] OPERATIVE NOTE NAME: RITA MELGAR UNIT #: [id number] ROOM: DOCTOR: LINDSAY JAMISON,MAGDA BIRTHDATE: [birth year] DOS: 05/12/2017 GASTROENDOSCOPIC REPORT HISTORY OF PRESENT ILLNESS: An 87-year-old patient who presented with chief complaint of neurogenic dysphagia, malfunctioning PEG tube, muscular dystrophy of advanced grade. PROCEDURE: Today's procedure part of investigation and therapy is panendoscopy plus removal of existing PEG tube endoscopically and placement of gastrostomy tube into existing ostomy. REPORT: After putting the patient in supine position, the scope was introduced. Thereafter, under direct visualization, advanced through the length of esophagus without difficulty. Esophagus, cervical, thoracic distally carefully examined. Gastric pouch was entered. There is a solid mushroom of the existing PEG tube was noticed. It is blocked from inside and in the residual connected shaft. Therefore, it was externally released from outside was cut and from inside with a snare was grabbed and orally extracted like foreign body. At this stage, size 24 was tinged with Neosporin and introduced into the existing tunnel and inflated with 15 mL of water, saline and external ____ were attached and additional straps was added for security of the and the patient extubated, tolerated procedure well. IMPRESSION: Malfunctioning existing PEG tube, status post removal endoscopically due to the fact that the PEG tube was non-retrievable percutaneously and status post new gastrostomy feeding device size 24-Kyrgyz. PLAN: Ready to be utilized for feeding and medication. Thank you very much indeed. MAGDA MONTOYA MD CM:OPRECORD:OPERATIVE NOTE 1613 17 MAGDA MONTOYA MD 05/12/17 2015 interface
[2017-05-12 13:45] VITALS: BP 114/64
[2017-05-12 16:05] VITALS: BP 119/69
[2017-05-12 16:19] VITALS: BP 119/69
== END ==
LOC: SDC 05-11 12:30
DX: K94.23 Gastrostomy malfunction (principal); R13.19 Other dysphagia; Z79.899 Other long term (current) drug therapy; Z88.0 Allergy status to penicillin; Z88.8 Allergy status to other drugs, medicaments and biological substances; Z98.890 Other specified postprocedural states; Z86.14 Personal history of Methicillin resistant Staphylococcus aureus infection; Z80.9 Family history of malignant neoplasm, unspecified

== ENCOUNTER 2017-05-28 18:24 | Emergency (ER) | payer OTHER ==
[~2017-05-28] VITALS: Wt 77.1 kg
[2017-05-28 20:24] LABS: BASO # 0.1 10*3/uL (0.0-0.1); EOS # 0.5 10*3/uL (0.0-0.4); EOS % 6.3 % (1.0-4.0); HEMATOCRIT 45.4 % (42.0-52.0); HEMOGLOBIN 14.6 g/dl (14.0-18.0); LYMPH # 2.4 10*3/uL (1.3-4.4); LYMPH % 29.2 % (27.0-41.0); MEAN CELL VOLUME 96.8 fl (80.0-94.0); MEAN CORPUSCULAR HGB 31.1 pg (27.0-31.0); MEAN CORPUSCULAR HGB CONC 32.2 g/dl (33.0-37.0); MEAN PLATELET VOLUME 11.5 fl (9.6-12.3); MONO # 0.7 10*3/uL (0.1-1.0); MONO % 8.7 % (3.0-9.0); NEUT # 4.5 10*3/uL (2.3-7.9); NEUT % 54.7 % (47.0-73.0); PLATELET COUNT AUTOMATED 156 10*3/uL (130-400); RED BLOOD COUNT 4.69 10*6/uL (4.50-5.90); RED CELL DISTRI WIDTH 14.5 % (0-14.5); WHITE BLOOD COUNT 8.1 10*3/uL (4.8-10.8)
[2017-05-28 20:41] LABS: ALBUMIN 3.3 gm/dl (3.1-4.5); ALKALINE PHOSPHATASE 163 U/L (45-117); BUN 19 mg/dl (7-24); CHLORIDE 104 mmol/L (98-107); CREATININE 0.48 mg/dL (0.70-1.30); POTASSIUM 4.4 mmol/L (3.5-5.1); SGOT/AST 60 IU/L (3-35); SGPT/ALT 120 U/L (12-78); SODIUM 143 mmol/L (136-145); TOTAL PROTEIN 7.3 gm/dL (6.4-8.2)
== END 2017-05-28 21:02 | disposition home or self-care (01) ==
LOC: ED 18:24
PROVIDERS: Physician Assistant
DX: K94.23 Gastrostomy malfunction (principal); Z90.89 Acquired absence of other organs; Z98.890 Other specified postprocedural states; Z88.0 Allergy status to penicillin; Z88.5 Allergy status to narcotic agent

== ENCOUNTER 2017-06-24 12:50 | Emergency (ER) | payer OTHER ==
[~2017-06-24] VITALS: Ht 175.2 cm; Wt 77.1 kg
[2017-06-24 14:09] LABS: BASO # 0.1 10*3/uL (0.0-0.1); BASO % 0.9 % (0.0-1.0); EOS # 0.3 10*3/uL (0.0-0.4); EOS % 4.6 % (1.0-4.0); HEMATOCRIT 42.9 % (42.0-52.0); HEMOGLOBIN 13.7 g/dl (14.0-18.0); LYMPH # 1.5 10*3/uL (1.3-4.4); LYMPH % 23.3 % (27.0-41.0); MEAN CELL VOLUME 97.3 fl (80.0-94.0); MEAN CORPUSCULAR HGB 31.1 pg (27.0-31.0); MEAN CORPUSCULAR HGB CONC 31.9 g/dl (33.0-37.0); MEAN PLATELET VOLUME 11.5 fl (9.6-12.3); MONO # 0.6 10*3/uL (0.1-1.0); MONO % 9.1 % (3.0-9.0); NEUT % 61.8 % (47.0-73.0); PLATELET COUNT AUTOMATED 143 10*3/uL (130-400); RED BLOOD COUNT 4.41 10*6/uL (4.50-5.90); RED CELL DISTRI WIDTH 14.3 % (0-14.5); WHITE BLOOD COUNT 6.5 10*3/uL (4.8-10.8)
[2017-06-24 14:24] LABS: ALKALINE PHOSPHATASE 180 U/L (45-117); BUN 14 mg/dl (7-24); CHLORIDE 111 mmol/L (98-107); CREATININE 0.52 mg/dL (0.70-1.30); POTASSIUM 4.5 mmol/L (3.5-5.1); SGOT/AST 112 IU/L (3-35); SGPT/ALT 139 U/L (12-78); SODIUM 147 mmol/L (136-145); TOTAL PROTEIN 6.5 gm/dL (6.4-8.2)
[2017-06-24] MEDS ORDERED: ROBITUSSIN DM 105 ML PO (14:48)
[2017-06-24] MEDS ORDERED: PREDNISONE10 MG PO (14:48)
[2017-06-24] MEDS ORDERED: CLARITIN10 MG PO (14:48)
[2017-06-24] MEDS ORDERED: FLONASE ALLERG9.9 ML NAS (14:48)
== END 2017-06-24 15:05 | disposition home or self-care (01) ==
LOC: ED 12:50
PROVIDERS: Nurse Practitioner Family
DX: B34.9 Viral infection, unspecified (principal); R03.0 Elevated blood-pressure reading, without diagnosis of hypertension; E78.5 Hyperlipidemia, unspecified; I25.2 Old myocardial infarction; Z90.89 Acquired absence of other organs; Z98.890 Other specified postprocedural states; Z88.0 Allergy status to penicillin; Z88.5 Allergy status to narcotic agent

== ENCOUNTER → 2017-07-07 | Day surgery (SDC) | payer OTHER ==
[~2017-07-07] VITALS: Ht 182.8 cm; Wt 79.4 kg
[~2017-07-07] MED LIST changes: +CLARITIN10 MG PO; +FLONASE ALLERG9.9 ML NAS; +PREDNISONE10 MG PO; +ROBITUSSIN DM 105 ML PO
--- NOTE | ~2017-07-07 | WRIGHTHP ---
[place], [place] PATIENT HISTORY AND PHYSICAL EXAM NAME[id number] UNIT #: [id number] ROOM: DOCTOR: MAGDA MONTOYA MD BIRTHDATE: [birth year] CM:HISPHYS:PATIENT HISTORY AND PHYSICAL EXAMINATION 1703 0717 MAGDA MONTOYA MD 07/20/17 0648 JOON [email or web address].TM
--- NOTE | ~2017-07-07 | WRIGHTHP ---
[place], [place] PATIENT HISTORY AND PHYSICAL EXAM NAME: RITA MELGAR [facility] #: [id number] UNIT #: [id number] ROOM: DOCTOR: JENNIE MONTOYA MDLOCKPORTALIYA BIRTHDATE: [birth year] DOS: 07/07/2017 HISTORY OF PRESENT ILLNESS: This patient is a 57-year-old who has presented with a regain of a swallow with history of a neurogenic dysphagia and patient with a history of muscular dystrophy, neurogenic dysphagia has resolved and according to the , he has regained his swallow and they are asking me for removal of the PEG tube. PAST MEDICAL HISTORY: Dyslipidemia, protein calorie malnutrition, essentially bedridden, non-STEMI myocardial infarction. PAST SURGICAL HISTORY: Status post previous PEG, tonsillectomy and orthopedic management and fracture of femur. SOCIAL HISTORY: Nonsmoker, nonalcohol consumer. FAMILY HISTORY: Noncontributory. ALLERGIES: PENICILLIN AND MORPHINE. MEDICATIONS: List has been reviewed. REVIEW OF SYSTEMS: HEENT: Denies double vision, blurred vision. RESPIRATORY: Denies acute shortness of breath. CARDIOVASCULAR: Denies acute chest pain. DIGESTIVE SYSTEM: Regain of swallow, according to the and the patient is consuming 3 meals without coughing and choking. PHYSICAL EXAMINATION: GENERAL: Reveals typical advanced muscular dystrophy. The patient with wasting of generalized muscles in face, neck and chest cavity as well as extremities, upper and lower. However, alert, communicating with some compromise. HEENT: Otherwise, head normocephalic, nontraumatic. Mouth and buccal mucosa benign. NECK: Supple, no thyromegaly, no cervical lymphadenopathy. CHEST: Symmetric anatomy, equal expansion. No wheeze, no rhonchi. HEART: Normal sinus rhythm, no gallop, no murmur. ABDOMEN: Soft. No hepato-organomegaly. Bowel sounds present. PEG tube in place. EXTREMITIES: No cyanosis, no pedal edema. Muscle wasting is noticed in upper and lower extremities. NEUROLOGIC: Fully alert and oriented. Compromising speech. LABORATORY DATA: Reviewed. IMPRESSION AND PLAN: At this stage, anterior abdominal wall, aseptically prepped. The existing gastrostomy tube percutaneously removed. Site was kept sterilized and saturated with Neosporin ointment and gauze placed and pressure banding done by physician and the patient tolerated procedure well. was [place], [place] PATIENT HISTORY AND PHYSICAL EXAM NAME: [facility] [id number] UNIT #: [id number] ROOM: DOCTOR: LINDSAY JAMISON,MAGDA BIRTHDATE: [birth year] advised for continuation of dressing after 3 days. Keeping the bandages in place and follow up as outpatient if there is any concern. OTHER ADJUNCTIVE DIAGNOSIS: Neurogenic dysphagia, status post recovery, unableness to swallow. I have, however, told that I would prepare this PEG tube to remain in however, both, the patient and insists for removal of PEG tube. Other adjunctive diagnoses as outlined in paragraph past medical, surgical history. Supportive management. Thank you very much indeed. MAGDA MONTOYA MD CM:HISPHYS:PATIENT HISTORY AND PHYSICAL EXAMINATION 1703 0717 MAGDA MONTOYA MD 07/20/17 0647 interface
[2017-07-07 13:41] VITALS: BP 115/63
== END | disposition home or self-care (01) ==
LOC: SDC 07-04 10:15
DX: Z43.1 Encounter for attention to gastrostomy (principal); E78.5 Hyperlipidemia, unspecified; I25.2 Old myocardial infarction; Z98.890 Other specified postprocedural states; Z88.0 Allergy status to penicillin; Z88.8 Allergy status to other drugs, medicaments and biological substances

== ENCOUNTER 2017-07-26 10:57 | Emergency (ER) | payer OTHER ==
[~2017-07-26] VITALS: Ht 177.8 cm; Wt 73.0 kg
[2017-07-26] MEDS ORDERED: NORCO 5-325 TA1 EACH PO (13:08)
== END 2017-07-26 13:15 | disposition home or self-care (01) ==
LOC: ED 10:57
DX: S90.01XA Contusion of right ankle, initial encounter (principal); Z90.89 Acquired absence of other organs; Z79.899 Other long term (current) drug therapy; Z88.0 Allergy status to penicillin; Z88.5 Allergy status to narcotic agent; W19.XXXA Unspecified fall, initial encounter; Y93.89 Activity, other specified; Y92.89 Other specified places as the place of occurrence of the external cause; Y99.9 Unspecified external cause status

== ENCOUNTER → 2017-08-09 | Outpatient (CLI) | payer OTHER ==
[~2017-08-09] MED LIST changes: +NORCO 5-325 TA1 EACH PO; +Nizoral 2%15 GM T; +ZITHROMAX250 MG PO
== END | disposition home or self-care (01) ==
LOC: RAD 10:56
DX: G71.0 Muscular dystrophy (principal)

== ENCOUNTER 2017-09-07 15:08 | Emergency (ER) | payer OTHER ==
[~2017-09-07] VITALS: Wt 76.2 kg
[~2017-09-07 15:08] MED LIST changes: -Nizoral 2%15 GM T; -ZITHROMAX250 MG PO
[2017-09-07] MEDS ORDERED: ZITHROMAX250 MG PO (18:34)
[2017-09-07] MEDS ORDERED: Nizoral 2%15 GM T (18:34)
== END 2017-09-07 18:42 | disposition home or self-care (01) ==
LOC: ED 15:08
DX: J40 Bronchitis, not specified as acute or chronic (principal); L21.8 Other seborrheic dermatitis; Z88.0 Allergy status to penicillin; Z88.5 Allergy status to narcotic agent

== ENCOUNTER 2017-09-28 18:27 | Emergency (ER) | payer OTHER ==
[~2017-09-28] VITALS: Wt 73.9 kg
--- NOTE | ~2017-09-28 | EKG ---
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
[~2017-09-28 18:27] MED LIST changes: +Nizoral 2%15 GM T; +ZITHROMAX250 MG PO
[2017-09-28 19:36] LABS: BILIRUBIN NEGATIVE (NEGATIVE); BLOOD NEGATIVE (NEGATIVE); CLARITY SL CLOUDY (CLEAR); COLOR YELLOW (YELLOW); GLUCOSE NEGATIVE (NEGATIVE); KETONE NEGATIVE (NEGATIVE); LEUKO ESTERASE NEGATIVE (NEGATIVE); NITRITE NEGATIVE (NEGATIVE); PH 5.5 (5.0-9.0); UROBILINOGEN 0.2 E.U./dl (0.2-1.0)
[2017-09-28 19:45] LABS: BASO % 0.4 % (0.0-1.0); EOS % 0.5 % (1.0-4.0); HEMATOCRIT 42.3 % (42.0-52.0); HEMOGLOBIN 13.5 g/dl (14.0-18.0); LYMPH # 1.6 10*3/uL (1.3-4.4); MEAN CELL VOLUME 95.7 fl (80.0-94.0); MEAN CORPUSCULAR HGB 30.5 pg (27.0-31.0); MEAN CORPUSCULAR HGB CONC 31.9 g/dl (33.0-37.0); MEAN PLATELET VOLUME 11.1 fl (9.6-12.3); MONO # 0.4 10*3/uL (0.1-1.0); MONO % 5.3 % (3.0-9.0); NEUT # 5.8 10*3/uL (2.3-7.9); NEUT % 73.4 % (47.0-73.0); PLATELET COUNT AUTOMATED 164 10*3/uL (130-400); RED BLOOD COUNT 4.42 10*6/uL (4.50-5.90); RED CELL DISTRI WIDTH 13.9 % (0-14.5); WHITE BLOOD COUNT 7.9 10*3/uL (4.8-10.8)
[2017-09-28 20:02] LABS: ALBUMIN 3.4 gm/dl (3.1-4.5); ALKALINE PHOSPHATASE 116 U/L (45-117); BUN 12 mg/dl (7-24); CHLORIDE 109 mmol/L (98-107); CREATININE 0.61 mg/dL (0.70-1.30); POTASSIUM 3.7 mmol/L (3.5-5.1); SGOT/AST 20 IU/L (3-35); SGPT/ALT 36 U/L (12-78); SODIUM 146 mmol/L (136-145); TOTAL PROTEIN 6.8 gm/dL (6.4-8.2)
[2017-09-28 20:07] LABS: BACTERIA TRACE; RBC 0-2 rbc/hpf (0-2)
[2017-09-28 20:12] LABS: TROPONIN I < 0.015 ng/ml (<0.045)
== END 2017-09-28 22:30 | disposition home or self-care (01) ==
LOC: ED 18:27
PROVIDERS: Emergency Medicine
DX: R41.0 Disorientation, unspecified (principal); Z88.0 Allergy status to penicillin; Z88.6 Allergy status to analgesic agent

== ENCOUNTER 2017-11-22 09:24 | Emergency (ER) | payer OTHER ==
[~2017-11-22] VITALS: Ht 177.8 cm; Wt 78.9 kg
[2017-12-15] MEDS ORDERED: VENTOLIN 02.5 MG/3 M INH (09:34)
[2017-12-15] MEDS ORDERED: MULTIPLE VITAM1 EAC1 PO (09:34)
== END 2017-11-22 11:09 | disposition home or self-care (01) ==
LOC: ED 09:24
DX: S01.01XA Laceration without foreign body of scalp, initial encounter (principal); S09.90XA Unspecified injury of head, initial encounter; Z98.890 Other specified postprocedural states; Z79.899 Other long term (current) drug therapy; Z88.0 Allergy status to penicillin; Z88.5 Allergy status to narcotic agent; W18.09XA Striking against other object with subsequent fall, initial encounter; Y93.89 Activity, other specified; Y92.89 Other specified places as the place of occurrence of the external cause; Y99.8 Other external cause status

== ENCOUNTER → 2017-12-18 | Day surgery (SDC) | payer OTHER ==
[~2017-12-18] VITALS: Ht 177.8 cm; Wt 78.9 kg
[~2017-12-18] MED LIST changes: +MULTIPLE VITAM1 EAC1 PO; +VENTOLIN 02.5 MG/3 M INH
--- NOTE | ~2017-12-18 | PROC NOTE ---
[place], [place] PROCEDURE NOTE [facility]: [id number] UNIT #: [id number] ROOM: DOCTOR: OZIEL FLORES MD,MANA BIRTHDATE: [birth year] DOS: 12/18/2017 OUTPATIENT FIBEROPTIC BRONCHOSCOPY NOTE PREOPERATIVE DIAGNOSES: Severe nonresolving cough for several weeks and months with maximum medical therapy not resolving and history of muscular dystrophy. POSTOPERATIVE DIAGNOSES: Removal of mucus impaction from endobronchial tree bilaterally, moderate amount, with endobronchial obstruction. PROCEDURE DESCRIPTION: Informed consent obtained from the patient. He was brought to the OR and placed in supine position. Conscious sedation was administered by the Anesthesia Department. In supine position, airway introduced into the mouth. Bronchoscope was advanced to the airway into laryngeal area. Epiglottis and vocal cords were seen. Bronchoscope was advanced to the vocal cord and tracheal lumen. Mucus impaction noted in the right upper, right middle, left upper, lingular lower bronchi. All the mucus impaction was cleared from the endobronchial tree, which was noted mild to moderate. The secretion did not appear very purulent. All secretions suctioned out clear with normal saline wash. Postoperative findings will be discussed with the patient and family members. Bronchial washings sent for appropriate cultures. MANA LUDWIG MD CM:PROCNOTE:PROCEDURE NOTE 1015 1204 MANA FLORES MD
[2017-12-18 08:18] VITALS: BP 126/78
[2017-12-18 08:50] VITALS: BP 101/63
[2017-12-18 09:05] VITALS: BP 112/67
[2017-12-18 09:20] VITALS: BP 113/63
[2017-12-19 15:38] LABS: ACID FAST SPEC PROCESSING Concentration (.)
[2018-01-25 10:05] LABS: ORGANISM ID, MOLD Final report (.); RESULT 1 Final Identification (.)
[2018-02-01 11:06] LABS: ACID FAST CULTURE Negative (.)
== END | disposition home or self-care (01) ==
LOC: SDC 12-15 15:30
PROVIDERS: Internal Medicine Critical Care Medicine
DX: R05 Cough (principal); R06.00 Dyspnea, unspecified; J98.11 Atelectasis; G71.11 Myotonic muscular dystrophy; Z98.890 Other specified postprocedural states; Z88.5 Allergy status to narcotic agent; Z88.0 Allergy status to penicillin; Z80.9 Family history of malignant neoplasm, unspecified

== ENCOUNTER 2018-02-10 15:55 | Emergency (ER) | payer OTHER ==
[~2018-02-10] VITALS: Ht 177.8 cm; Wt 80.7 kg
--- NOTE | ~2018-02-10 | EKG ---
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: Cory Hill : 1960 Requested By: KRISTY ASHER Order Number: [id number] Reading MD: Blaise Henderson MD Measurements Intervals [place] Rate: 74 P: 31 LA: 176 QRS: -49 QRSD: 114 T: 57 QT: 372 QTc: 413 Interpretive Statements Sinus rhythm Incomplete right bundle branch block Inferolateral infarct, acute Compared to ECG 09/28/2017 19:29:38 Incomplete right bundle-branch block now present Left anterior fascicular block no longer present ST (T wave) deviation no longer present Myocardial infarct finding still present Electronically Signed On 02-12-2018 8:10:56 PST by Blaise Henderson MD CM:EKGRPT:ELECTROCARDIOGRAM REPORT 1618 0810 KRISTY ASHER EPIPHANY DRAFT REPORT KRISTY ASHER
[2018-02-10 17:01] LABS: BASO # 0.1 10*3/uL (0.0-0.1); EOS # 0.5 10*3/uL (0.0-0.4); EOS % 6.5 % (1.0-4.0); LYMPH # 2.1 10*3/uL (1.3-4.4); LYMPH % 28.6 % (27.0-41.0); MEAN CELL VOLUME 96.6 fl (80.0-94.0); MEAN CORPUSCULAR HGB 31.5 pg (27.0-31.0); MEAN CORPUSCULAR HGB CONC 32.6 g/dl (33.0-37.0); MEAN PLATELET VOLUME 10.8 fl (9.6-12.3); MONO # 0.5 10*3/uL (0.1-1.0); MONO % 7.5 % (3.0-9.0); PLATELET COUNT AUTOMATED 154 10*3/uL (130-400); RED BLOOD COUNT 4.45 10*6/uL (4.50-5.90); RED CELL DISTRI WIDTH 14.2 % (0-14.5); WHITE BLOOD COUNT 7.2 10*3/uL (4.8-10.8)
[2018-02-10 17:19] LABS: ALKALINE PHOSPHATASE 161 U/L (45-117); BUN 16 mg/dl (7-24); CHLORIDE 110 mmol/L (98-107); CREATININE 0.62 mg/dL (0.70-1.30); POTASSIUM 3.9 mmol/L (3.5-5.1); SGOT/AST 50 IU/L (3-35); SGPT/ALT 74 U/L (12-78); SODIUM 146 mmol/L (136-145); TOTAL PROTEIN 6.5 gm/dL (6.4-8.2)
[2018-02-10 17:23] LABS: TROPONIN I < 0.015 ng/ml (<0.045)
[2018-02-10] MEDS ORDERED: PREDNISONE10 MG PO (17:36)
== END 2018-02-10 17:43 | disposition home or self-care (01) ==
LOC: ED 15:55
PROVIDERS: Nurse Practitioner Family
DX: J20.9 Acute bronchitis, unspecified (principal); E78.5 Hyperlipidemia, unspecified; I25.2 Old myocardial infarction; Z88.0 Allergy status to penicillin; Z88.5 Allergy status to narcotic agent; Z93.1 Gastrostomy status

== ENCOUNTER 2018-04-11 10:17 | Emergency (ER) | payer OTHER ==
[~2018-04-11] VITALS: Wt 81.6 kg
--- NOTE | ~2018-04-11 | EKG ---
[place], [place] ELECTROCARDIOGRAM REPORT NAME: RITA MELGAR UNIT #: [id number] ROOM: DOCTOR: EPIPHANY DRAFT REPORT BIRTHDATE: [birth year] [facility] Test Date: 2018-04-11 Test Time: 11:29:42 Pat Name: RITA MELGAR Department: Room: Gender: General Farmworker: Kaela Smith : 1960 Requested By: LUZMA BORDEN Order Number: [id number] Reading MD: Renetta Humphreys MD Measurements Intervals [place] Rate: 59 P: 37 DC: 183 QRS: -77 QRSD: 109 T: 46 QT: 441 QTc: 437 Interpretive Statements Sinus rhythm Left anterior fascicular block Abnormal R-wave progression, late transition Borderline ST elevation, lateral leads Baseline wander in lead(s) V1 Compared to ECG 02/10/2018 16:18:33 Left anterior fascicular block now present ST (T wave) deviation now present Myocardial infarct finding no longer present Electronically Signed On 04-12-2018 13:54:58 PST by Renetta Humphreys MD CM:EKGRPT:ELECTROCARDIOGRAM REPORT [id number] LUZMA SANTOS DRAFT REPORT LUZMA BORDEN DO
[2018-04-11 11:08] LABS: BASO # 0.1 10*3/uL (0.0-0.1); BASO % 0.8 % (0.0-1.0); EOS # 0.3 10*3/uL (0.0-0.4); EOS % 4.5 % (1.0-4.0); HEMATOCRIT 47.2 % (42.0-52.0); HEMOGLOBIN 15.3 g/dl (14.0-18.0); LYMPH # 1.9 10*3/uL (1.3-4.4); LYMPH % 27.3 % (27.0-41.0); MEAN CELL VOLUME 96.3 fl (80.0-94.0); MEAN CORPUSCULAR HGB 31.2 pg (27.0-31.0); MEAN CORPUSCULAR HGB CONC 32.4 g/dl (33.0-37.0); MEAN PLATELET VOLUME 10.4 fl (9.6-12.3); MONO # 0.6 10*3/uL (0.1-1.0); MONO % 8.9 % (3.0-9.0); NEUT # 4.1 10*3/uL (2.3-7.9); NEUT % 58.2 % (47.0-73.0); PLATELET COUNT AUTOMATED 172 10*3/uL (130-400); RED CELL DISTRI WIDTH 14.3 % (0-14.5); WHITE BLOOD COUNT 7.1 10*3/uL (4.8-10.8)
[2018-04-11 11:16] LABS: ACT PARTIAL THROMBO TIME 25.5 SECONDS (20.8-31.5); INTERNATIONAL NORM RATIO 0.9 (2.0-3.5)
[2018-04-11 11:24] LABS: ALBUMIN 3.3 gm/dl (3.1-4.5); ALKALINE PHOSPHATASE 173 U/L (45-117); BUN 13 mg/dl (7-24); CHLORIDE 112 mmol/L (98-107); CREATININE 0.48 mg/dL (0.70-1.30); LIPASE 78 U/L (73-393); POTASSIUM 4.3 mmol/L (3.5-5.1); SGOT/AST 45 IU/L (3-35); SGPT/ALT 92 U/L (12-78); SODIUM 146 mmol/L (136-145); TOTAL PROTEIN 7.3 gm/dL (6.4-8.2)
[2018-04-11 11:28] LABS: TROPONIN I < 0.015 ng/ml (<0.045)
[2018-04-11 11:50] LABS: BILIRUBIN NEGATIVE (NEGATIVE); BLOOD NEGATIVE (NEGATIVE); CLARITY SL CLOUDY (CLEAR); COLOR YELLOW (YELLOW); GLUCOSE NEGATIVE (NEGATIVE); KETONE NEGATIVE (NEGATIVE); LEUKO ESTERASE NEGATIVE (NEGATIVE); NITRITE NEGATIVE (NEGATIVE); PH 8.5 (5.0-9.0); UROBILINOGEN 0.2 E.U./dl (0.2-1.0)
[2018-04-11 11:57] LABS: BACTERIA 1+; EPITHELIAL CELLS 0-2
[2018-04-11 12:10] LABS: URINE AMPHETAMINES < 1000 (1000ng/ml); URINE BARBITURATES < 200 (200ng/ml); URINE BENZODIAZEPINES < 200 (200ng/ml); URINE CANNABINOIDS (THC) < 50 (50ng/ml); URINE COCAINE < 300 (300ng/ml); URINE METHADONE < 300 (300ng/ml); URINE OPIATES < 300 (300ng/ml)
[2018-04-11 12:16] LABS: URINE PHENCYCLIDINE < 25 (25ng/ml)
[2018-04-11] MEDS ORDERED: MUCINEX DM ER1 EACH PO (12:41)
[2018-04-11] MEDS ORDERED: ZITHROMAX250 MG PO (12:41)
== END 2018-04-11 12:44 | disposition home or self-care (01) ==
LOC: ED 10:17
PROVIDERS: Emergency Medicine
DX: J20.9 Acute bronchitis, unspecified (principal); E78.5 Hyperlipidemia, unspecified; I25.2 Old myocardial infarction; Z88.0 Allergy status to penicillin; Z88.5 Allergy status to narcotic agent; Z79.899 Other long term (current) drug therapy

== ENCOUNTER 2018-09-08 12:42 | Inpatient (IN) | payer OTHER ==
[~2018-09-08] VITALS: Ht 177.8 cm; Wt 80.1 kg
--- NOTE | ~2018-09-08 | EKG ---
[place], [place] ELECTROCARDIOGRAM REPORT NAME: RITA MELGAR UNIT #: [id number] ROOM: 428 DOCTOR: RYANN DRAFT REPORT BIRTHDATE: [birth year] [facility] Test Date: 2018-09-09 Test Time: 01:30:18 Pat Name: RITA MELGAR Department: Room: [facility] 1 Gender: M Cash Processing Specialist: Elena Plasencia : 1960 Requested By: LILI WISE Order Number: [id number] Reading MD: Tyree Juarez MD Measurements Intervals [place] Rate: 105 P: 68 RI: 200 QRS: -60 QRSD: 113 T: 53 QT: 360 QTc: 476 Interpretive Statements Sinus tachycardia Borderline prolonged RI interval Left atrial enlargement Incomplete RBBB and LAFB Abnormal R-wave progression, late transition Left ventricular hypertrophy Lateral infarct, acute, ST elevation, consider inferior injury Baseline wander in lead(s) V1 Compared to ECG 04/11/2018 11:29:42, Atrial abnormality now present Incomplete right bundle-branch block now present Right bundle-branch block now present,Left ventricular hypertrophy now present Myocardial infarct finding now present,Sinus rhythm no longer present ST (T wave) deviation still present Electronically Signed On 09-09-2018 11:42:25 PDT by Tyree Juarez MD CM:EKGRPT:ELECTROCARDIOGRAM REPORT [id number] 1142 LILI SANTOS DRAFT REPORT LILI WISE DO
--- NOTE | ~2018-09-08 | EKG ---
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: : 1960 Requested By: MANA FOLRES Order Number: [id number] Reading MD: Mana Marin MD Measurements Intervals [place] Rate: 101 P: 40 TN: 210 QRS: -56 QRSD: 108 T: 46 QT: 363 QTc: 471 Interpretive Statements Sinus tachycardia Prolonged TN interval Probable left atrial enlargement Incomplete RBBB and LAFB Probable posterior infarct, acute Lateral infarct, acute ST elevation, consider inferior injury Compared to ECG 09/09/2018 01:30:18 Left ventricular hypertrophy no longer present Myocardial infarct finding still present ST (T wave) deviation still present Myocardial infarct finding still present Electronically Signed On 09-12-2018 6:55:27 PDT by Mana Marin MD CM:EKGRPT:ELECTROCARDIOGRAM REPORT [id number] MANA FLORES MD EPIPHANY DRAFT REPORT MANA FLORES MD
--- NOTE | ~2018-09-08 | PR ---
[place], [place] PROGRESS NOTE NAME: RITA MELGAR [facility] #: [id number] UNIT #: [id number] ROOM: 421 DOCTOR: OZIEL FLORES MDMANA BIRTHDATE: [birth year] DOS: 09/14/2018 The patient has been seen and examined in ycma-qv-cdrh encounter, history was confirmed. Physical examination performed. Labs were reviewed. Assessment and management today's visit was personally completed. Note done by the certified medical assistant was approved as well. SUBJECTIVE: The patient has been doing well until yesterday evening reported with oxygen desaturation requiring oxygen supplementation that was increased. The patient has been getting nasal cannula oxygen supplementation this morning. Has been noted cough at times with some sputum expectoration. There are no symptoms of chest pain reported. The patient has not been reported symptoms of hemoptysis. Symptoms of nausea, vomiting, diarrhea reported. The patient was continued on the diet as well. There was no evidence of an aspiration. This morning, when the patient was seen, he was comfortably resting and sitting on the bed. He was noted fully awake and alert. Remaining systems were reviewed with the patient, they were noted all negative. PHYSICAL EXAMINATION: GENERAL: The patient was noted comfortable at this time, sitting on the bed this morning of assessment, using oxygen supplementation with nasal cannula. VITAL SIGNS: For the patient, which has been recorded shows a normal temperature with a respiratory rate of 20, heart rate of 84, blood pressure 115/80. Pulse oxygen saturation recorded as 98% saturation on 2 liters nasal cannula. Previous recorded as 88% oxygen saturation yesterday. HEENT: Examination shows head was atraumatic. Eyes nonicterus. NECK: Supple. CARDIOVASCULAR: S1, S2 is audible. LUNGS: Noted patient with decreased breath sounds in the lower lung on the right side. There were no crackles. ABDOMEN: Soft, nontender. Bowel sounds present. EXTREMITIES: Noted without any acute edema. MUSCULOSKELETAL: Noted without any acute deformities. CENTRAL NERVOUS SYSTEM: History of muscular dystrophy. LABORATORY DATA: Chest x-ray that was done yesterday were reviewed and the x-ray done this morning both noted identical. Chest x-ray with resolving pulmonary infiltration, mild elevation of the right hemidiaphragm. Blood culture from the 09/08/2018 showed no bacterial growth, final results. The BMP this morning, BUN normal, creatinine normal, CO2 was 33. IMPRESSION: 1. Improving acute pneumonia from aspiration with overall debility with history of muscular dystrophy as well. Worsening of the debility noted secondary to current acute pneumonia. 2. Neurogenic dysphagia. PLAN OF MANAGEMENT: No changes in the medical plan of management at this time. From pulmonary standpoint, discharge planning could be started, preferably [place], [place] PROGRESS NOTE NAME: RITA MELGAR UNIT #: [id number] ROOM: 421 DOCTOR: OZIEL FLORES MD,MANA BIRTHDATE: [birth year] patient [facility] facility for the next few days to get extensive rehabilitation for this patient. The antibiotic could be switched orally whenever desired based on these culture results. Continuation of bronchodilator, the therapy, plan and management, additional treatment changes will be made based on the progression of his illness. MANA LUDWIG MD CM:DUANE 1049 1633 MANA FLORES MD 09/14/18 1631 interface
--- NOTE | ~2018-09-08 | PR ---
[place], [place] [facility]GRESS NOTE [id number] #: [id number] ROOM: 421 DOCTOR: OZIEL FLORES MD,MANA BIRTHDATE: [birth year] DOS: 09/17/2018 PULMONARY PROGRESS NOTE SUBJECTIVE: He has been noted to be comfortable sitting on the chair this morning with the present in room with coughing, shortness of breath, and all other symptoms were gradually resolving. He has been participating in physical therapy. OBJECTIVE: VITAL SIGNS: Normal temperature, respiratory rate of 18, heart rate 70, blood pressure 112/56. Pulse ox saturation on 3 liters nasal cannula 96% saturation. HEENT: Examination shows head was atraumatic. Eyes nonicterus. NECK: Supple. CARDIOVASCULAR: S1, S2 audible. LUNGS: Noted without any wheeze or crackles. ABDOMEN: Soft, nontender. Bowel sounds present. EXTREMITIES: No new change. IMPRESSION: 1. Resolving acute pneumonia with acute hypoxic respiratory failure and overall debility. 2. History of muscular dystrophy, which is chronic. PLAN OF MANAGEMENT: No changes in plan of care. Discharge planning by primary care physician. Continue other plan of management as in progress. Usual care. MANA LUDWIG MD CM:PNTRANS [phone] MANA FLORES MD 09/17/18 1543 interface
--- NOTE | ~2018-09-08 | PR ---
[place], [place] PROGRESS NOTE NAME: RITA MELGAR [facility] #: [id number] UNIT #: [id number] ROOM: 428 DOCTOR: OZIEL FLORES MD,MANA BIRTHDATE: [birth year] DOS: 09/12/2018 SUBJECTIVE: The patient is independently seen and examined in [id number] encounter, history was confirmed. Physical exam was performed. Labs were reviewed. The note done by the clinical laboratory medical director approved. The assessment and management of the patient personally completed. He has bronchoscopy completed yesterday with reduction in symptoms of cough. The patient has not been noted symptoms of chest pain. Shortness of breath was not noted at rest. He has been noted comfortable at this time, sitting on the bed this morning of assessment. OBJECTIVE: VITAL SIGNS: The patient was noted low grade fever. At this time, the patient comfortably resting, sitting on the bed this morning of assessment noted lower grade fever of 100.5 degrees Fahrenheit, noted afebrile afterwards, respiratory rate 18, heart rate 77, blood pressure 110/64. Pulse oxygen saturation on 2 liters nasal cannula is 94% saturation recorded. HEENT: Examination shows head was atraumatic. Eyes nonicterus. NECK: Supple. CARDIOVASCULAR: S1, S2 audible. LUNGS: The patient noted mild to moderate decreased breath sounds. There were no crackles heard. ABDOMEN: Soft, nontender, bowel sounds present. EXTREMITIES: The patient was noted without any acute edema. LABORATORY DATA: CMP that was done this morning noted as normal BUN and creatinine, CO2 was 34. CBC this morning WBC count 8.5, hemoglobin, hematocrit, and platelet count was normal. Culture of the bronchial washing noted as normal arvind. Gram stain of the bronchial washing many white blood cells, moderate epithelial cells, moderate gram-positive cocci in pairs and chains, few gram-positive bacilli and rare gram-negative bacilli. IMPRESSION: 1. The patient who has been currently noted at this time with acute pneumonia from aspiration, status post bronchoscopy, removal of significant amount of mucus and bronchial secretions bilaterally. 2. The patient with history of muscular dystrophy, which is chronic. PLAN OF TREATMENT: Monitor culture results at this time. Continue bronchodilators, oxygen supplementation, other therapy, plan of management as well. Usual care. Supportive plan of management, care plan and treatment. [place], [place] PROGRESS NOTE NAME: RITA MELGAR UNIT #: [id number] ROOM: 428 DOCTOR: OZIEL FLORES MD,MANA BIRTHDATE: [birth year] MANA LUDWIG MD CM:PNTRANS [id number] MANA FLORES MD 09/12/18 1646 interface
--- NOTE | ~2018-09-08 | PR ---
[place], [place] PROGRESS NOTE [id number] #: [id number] ROOM: 421 DOCTOR: OZIEL FLORES MD,MANA BIRTHDATE: [birth year] DOS: 09/15/2018 SUBJECTIVE: The patient was noted comfortable at this time, resting on the bed. He has not been noted symptoms of chest pain. Noted awake and alert. The oxygen supplementation continued with the nasal cannula. There were no symptoms of chest pain. The coughing has been subsiding gradually. OBJECTIVE: VITAL SIGNS: For the patient, which are recorded shows a normal temperature. The respiratory rate 20, heart rate 88, blood pressure 116/67. Pulse ox saturation on 2 liters nasal cannula 95% saturation recorded. HEENT: Examination shows head was atraumatic. Eyes nonicterus. NECK: Supple. CARDIOVASCULAR: S1, S2 audible. LUNGS: Noted without any wheeze or crackles at present time. ABDOMEN: Soft, nontender. Bowel sounds present. EXTREMITIES: No new change. IMPRESSION: Resolving acute pneumonia as well as acute respiratory failure gradually and progressively. Severe debility was improving gradually from the current ongoing medical illnesses with a history of chronic muscular dystrophy. PLAN OF MANAGEMENT: No change in the plan of treatment was recommended. Recommendation for extensive rehabilitation was encouraged to the family members or for admission to the longterm facility. The patient to be discharged home setting. Final decision to be made by the primary care physician about the discharge planning. MANA LUDWIG MD CM:PNTRANS [phone] MANA FLORES MD 09/24/18 1037 interface
--- NOTE | ~2018-09-08 | PR ---
[place], [place] PROGRESS NOTE NAME: RITA MELGAR UNIT #: [id number] ROOM: 428 DOCTOR: LEE ANN CASTILLO DO BIRTHDATE: [birth year] DOS: 09/12/2018 PULMONARY PROGRESS NOTE SUBJECTIVE: The patient was seen and evaluated. The patient resting comfortably, currently on 1 liter of oxygen with saturation 94%. The patient states he is feeling much better today. Breathing and chest congestion have improved. Denies any fevers, chills, nausea, vomiting, diarrhea or chest pain. REVIEW OF SYSTEMS: Remaining systems reviewed, all noted negative. PHYSICAL EXAMINATION: VITAL SIGNS: Low-grade fever noted at 100.5 degrees Fahrenheit at 2000 hours yesterday, currently normal temperature at 98 degrees Fahrenheit, heart rate 77, respiratory rate 18, blood pressure 114/60, pulse oxygen saturation 94% on 1 liter of oxygen. HEENT: Shows head was atraumatic. Eyes nonicterus. NECK: Supple. CARDIOVASCULAR: S1, S2 audible. Systolic murmur noted. LUNGS: The patient was noted without any wheezing, decreased breath sounds in the lower portion of the lungs. ABDOMEN: Soft, nontender and flat. EXTREMITIES: The patient without any acute edema. MUSCULOSKELETAL: The patient was noted with previous known history of muscular dystrophy. CENTRAL NERVOUS SYSTEM: General weakness and fatigue with history of muscular dystrophy. LABORATORY DATA: CBC this morning, white count was normal, hemoglobin and hematocrit 13.9 and 44.7 respectively, platelet count were normal. Blood cultures negative. CMP this morning, normal BUN and creatinine. Sodium 144. ALT is elevated. ASSESSMENT: 1. The patient with stable respiratory status, acute aspiration pneumonia with coughing. 2. History of muscular dystrophy. 3. Transaminitis. PLAN OF MANAGEMENT: At this time, continue with antibiotics. Continuation of oxygen supplementation, bronchodilators and other treatments. Monitor respiratory status. Maintain aspiration precautions plan of care will be adjusted as cultures return. Lee Ann Castillo DO [place], [place] PROGRESS NOTE NAME: RITA MELGAR UNIT #: [id number] ROOM: 428 DOCTOR: LEE ANN CASTILLO DO BIRTHDATE: [birth year] MANA LUDWIG MD CM:DUANE 1057 LEE ANN CASTILLO DO 09/13/18 0131 interface
--- NOTE | ~2018-09-08 | PR ---
[place], [place] PROGRESS NOTE NAME: RITA MELGAR UNIT #: [id number] ROOM: 421 DOCTOR: STEPHANI HENSLEY BIRTHDATE: [birth year] DOS: 09/13/2018 PULMONARY PROGRESS NOTE SUBJECTIVE: The patient was seen and evaluated. The patient is resting comfortably. The patient states he is feeling much better today. Breathing and chest congestion had improved. Denies any fevers, chills, nausea, vomiting, diarrhea or chest pain. REVIEW OF SYSTEMS: Remaining systems reviewed, all noted negative. PHYSICAL EXAMINATION: VITAL SIGNS: Normal temperature, heart rate 76, respiratory rate 18, blood pressure 137/78, pulse oxygen saturation 96% on 1 liter of oxygen. HEENT: Shows head was atraumatic. Eyes nonicterus. NECK: Supple. CARDIOVASCULAR: S1, S2 audible. Systolic murmur noted. LUNGS: The patient was noted without any wheezing. Decreased breath sounds in the lower portions of the lungs. ABDOMEN: Soft, nontender and flat. EXTREMITIES: The patient without any acute edema. MUSCULOSKELETAL: The patient was noted with previous known history of muscular dystrophy. CENTRAL NERVOUS SYSTEM: General weakness and fatigue with history of muscular dystrophy. LABORATORY DATA: CBC this morning, white count was normal, hemoglobin and hematocrit 14.6 and 46.9 respectively, platelet count was normal. Blood cultures negative. CMP this morning, normal BUN and creatinine, sodium 143, ALT is elevated. Bronchial washing bacterial culture grew normal arvind with moderate yeast. ASSESSMENT: 1. The patient with stable respiratory status, acute aspiration pneumonia with coughing. 2. History of muscular dystrophy. 3. Transaminitis. PLAN OF MANAGEMENT: At this time, continue with antibiotics, continuation of oxygen supplementation, bronchodilators and other treatments. Monitor respiratory status. Maintain aspiration precautions. Dr. STEPHANI HENSLEY, [place], [place] PROGRESS NOTE NAME: RITA MELGAR UNIT #: [id number] ROOM: 421 DOCTOR: STEPHANI HENSLEY BIRTHDATE: [birth year] MANA LUDWIG MD CM:PNTRANS [id number] STEPHANI HENSLEY 09/13/18 2708 interface
--- NOTE | ~2018-09-08 | PR ---
[place], [place] PROGRESS NOTE NAME: RITA MELGAR [facility] #: [id number] UNIT #: [id number] ROOM: 428 DOCTOR: OZIEL FLORES MDMANA BIRTHDATE: [birth year] DOS: 09/11/2018 SUBJECTIVE: The patient is independently seen and examined in [id number] encounter, history was confirmed. Physical exam performed. Lab reviewed. The assessment and management of the patient personally completed. Note done by the medical billing coordinator approved as well. He is currently noted n.p.o. past midnight for bronchoscopy planned to be done today. He has been noted with chest congestion, coughing, but unable to expectorate any sputum. Denies symptoms of fever or chills. There were no symptoms of hemoptysis stated by the patient. Symptoms of nausea, vomiting, diarrhea stated. Remaining systems were reviewed, noted all negative. PHYSICAL EXAMINATION: VITAL SIGNS: Low-grade fever noted at 99.8 degrees Fahrenheit at 8:00. The respiratory rate 20, heart rate 96, blood pressure 113/63. Pulse oxygen saturation on 2 liters nasal cannula 98% saturation. HEENT: Shows head was atraumatic. Eyes, nonicterus. NECK: Supple. CARDIOVASCULAR SYSTEM: S1, S2 audible. LUNGS: The patient was noted without any wheezing. Decreased breath sounds in the low portion of the lungs. ABDOMEN: Soft, nontender, and flat. EXTREMITIES: The patient without any acute edema. MUSCULOSKELETAL: The patient was noted with previous known history of muscular dystrophy. CENTRAL NERVOUS SYSTEM: General weakness and fatigue with history of muscular dystrophy. LABORATORY DATA: CBC this morning; WBC count normal, hemoglobin and hematocrit normal, platelet count were normal. Blood culture from 09/08/2018 so far showed no bacterial growth. Final culture results were pending. CMP this morning as a normal BUN and creatinine. Sodium 146. AST and ALT noted abnormal. IMPRESSION: 1. The patient has stable respiratory status, acute aspiration pneumonia with coughing, inability to expectorate sputum, here for bronchoscopy. 2. History of muscular dystrophy. 3. Abnormal liver function tests. PLAN OF MANAGEMENT: Proceed with fiberoptic bronchoscopy as planned. Any additional treatment changes if necessary will be ordered after the bronchoscopy. Continuation of the oxygen supplementation, bronchodilators and other treatments. Follow the respiratory status. Aspiration precautions. [place], [place] PROGRESS NOTE NAME: TALIARITA Hou UNIT #: [id number] ROOM: 428 DOCTOR: OZIEL FLORES MD,MANA BIRTHDATE: [birth year] MANA LUDWIG MD CM:DUANE [phone] MANA FLORES MD 09/12/18 0056 interface
--- NOTE | ~2018-09-08 | PR ---
[place], [place] PROGRESS NOTE NAME: RITA MELGAR [facility] #: [id number] UNIT #: [id number] ROOM: 421 DOCTOR: OZIEL FLORES MD,MANA BIRTHDATE: [birth year] DOS: 09/16/2018 SUBJECTIVE: The patient noted comfortable at this time without any acute distress, continued improvement of respiratory symptom, reduction in the coughing and other symptoms were reported. He has been getting physical therapy. There were no symptoms of hemoptysis noted. The oxygen supplement, continue nasal cannula. OBJECTIVE: VITAL SIGNS: This morning, normal temperature, respiratory rate 18, heart rate 74, blood pressure 110/76. Pulse oxygen saturation recorded on 2 liters nasal cannula was 96% saturation. HEENT: No acute change. NECK: Supple. CARDIOVASCULAR: S1, S2 is audible. LUNGS: The patient was noted without any wheezing or crackles. ABDOMEN: Soft, nontender. Bowel sounds present. EXTREMITIES: Without any acute edema. IMPRESSION: Resolving acute pneumonia with acute hypoxic respiratory failure and acute muscular dystrophy with debility. PLAN OF MANAGEMENT: No change in plan of management at this time. Continuation of current therapy as in progress. Usual care. Supportive plan of management and care. MANA LUDWIG MD CM:PNTRANS [phone] MANA FLORES MD 09/16/18 3199 interface
--- NOTE | ~2018-09-08 | EKG ---
[place], [place] ELECTROCARDIOGRAM REPORT NAME: RITA MELGAR UNIT #: [id number] ROOM: 428 DOCTOR: RYANN DRAFT REPORT BIRTHDATE: [birth year] [facility] Test Date: 2018-09-08 Test Time: 19:13:15 Pat Name: RITA MELGAR Department: Room: 428 Gender: M Communications Assistant: Elena Plasencia : 1960 Requested By: FREIDA WALLACE Order Number: [id number] Reading MD: Tyree Juarez MD Measurements Intervals [place] Rate: 94 P: 12 NV: 197 QRS: -59 QRSD: 111 T: 42 QT: 369 QTc: 462 Interpretive Statements Sinus rhythm Borderline prolonged NV interval Probable left atrial enlargement Inferior infarct, acute Probable posterior infarct, acute Lateral leads are also involved Baseline wander in lead(s) V4,V5 Compared to ECG 04/11/2018 11:29:42 Myocardial infarct finding now present Left anterior fascicular block no longer present ST (T wave) deviation no longer present Electronically Signed On 09-09-2018 11:42:15 PDT by Tyree Juarez MD CM:EKGRPT:ELECTROCARDIOGRAM REPORT [id number] FREIDA GARZON DRAFT REPORT FREIDA WALLACE MD
--- NOTE | ~2018-09-08 | PR ---
[place], [place] PROGRESS NOTE NAME: RITA MELGAR UNIT #: [id number] ROOM: 421 DOCTOR: OZIEL FLORES MDMANA BIRTHDATE: [birth year] DOS: 09/10/2018 SUBJECTIVE: The patient noted comfortable at this time resting in the bed this morning of assessment. Still noted excessive coughing. Noted to be more awake and alert this morning. Continue intravenous antibiotic for the medical management of acute tracheobronchitis and pulmonary infection. Denies symptoms of fever or chills. Denies symptoms of hemoptysis. Denies symptoms of nausea, vomiting, diarrhea, abdominal pain, hematemesis, or melena. The patient was scheduled for bronchoscopy to be done yesterday but canceled and rescheduled for tomorrow because of scheduling conflict. Remaining systems were reviewed, they were noted all negative. OBJECTIVE: VITAL SIGNS: Normal temperature, respiratory rate 20, heart rate of 81, blood pressure 112/58. Pulse oxygen saturation recorded on room air 97% saturation. HEENT: Examination shows head was atraumatic. EYES: Nonicterus. NECK: Supple. CARDIOVASCULAR: S1, S2 is audible. LUNGS: Noted without any wheezing or crackles at the present time. Breaths are noted diminished in the lungs bilaterally. ABDOMEN: Soft and nontender. EXTREMITIES: Without edema, clubbing or cyanosis. MUSCULOSKELETAL: History of muscular dystrophy. CENTRAL NERVOUS SYSTEM: General weakness and fatigue. LABORATORY DATA: CBC that was done this morning, WBC count 12.3, hemoglobin 13.8, platelet count were normal. CMP this morning, BUN 18, creatinine was normal. AST, ALT both noted mildly elevated. IMPRESSION: The patient who has been currently treated in the hospital for: 1. Medical management of acute aspiration pneumonia in the left lower lobe. 2. Acute tracheobronchitis with decreased mobility. 3. Muscular dystrophy. PLAN OF MANAGEMENT: Continuation of bronchodilators, oxygen supplementation, and other plan of management as ongoing without any changes. Bronchoscopy will be done tomorrow morning. Follow the culture results prior to making any changes in the antibiotics at the present time. No additional change in treatment will be needed. [place], [place] PROGRESS NOTE NAME: RITA MELGAR UNIT #: [id number] ROOM: 421 DOCTOR: MANA CLIFTON MD BIRTHDATE: [birth year] MANA LUDWIG MD CM:GUNNARTRANS [phone] MANA FLORES MD 09/24/18 1036 interface
--- NOTE | ~2018-09-08 | PR ---
[place], [place] PROGRESS NOTE NAME: RITA MELGAR UNIT #: [id number] ROOM: 428 DOCTOR: MANA CLIFTON MD BIRTHDATE: [birth year] DOS: 09/13/2018 SUBJECTIVE: The patient is independently seen and examined in [id number] encounter, history was confirmed. Physical exam was performed. Labs were reviewed. The assessment and management of the patient today was personally completed. Note done by the medical administrator approved. The patient noted comfortable at this time, resting comfortably in the bed this morning of assessment. He has been noted fully awake and alert, close to the baseline. He has been started on physical therapy. Chest congestion and coughing has been also improving. Continue the antibiotic therapy. OBJECTIVE: GENERAL: The patient comfortably resting on the bed this morning of assessment. His is present in the room as well. VITAL SIGNS: Normal temperature, respiratory rate 18, heart rate 69, blood pressure 130/66. Pulse ox saturation on 1 liter nasal cannula 96% saturation. HEENT: Examination shows head was atraumatic. EYES: No icterus. NECK: Supple. CARDIOVASCULAR: S1, S2 is audible. LUNGS: Noted occasional crackles. No wheezing. ABDOMEN: Soft, nontender, bowel sounds present. EXTREMITIES: The patient has no acute change. IMPRESSION: 1. The patient with acute pneumonia from aspiration. The patient at this time responding to treatment, status post bronchoscopy with decrease cough as well. 2. History of muscular dystrophy. PLAN OF MANAGEMENT: I ordered a chest x-ray, PA and lateral view. The cultures of the bronchial washing were noted as moderate growth of yeast and no bacterial isolation. Discharge planning could be started possibly tomorrow depends on the chest x-ray assessment. Other therapy, plan of management, care plan and treatment. [place], [place] PROGRESS NOTE NAME: RITA MELGAR UNIT #: [id number] ROOM: 428 DOCTOR: MANA CLIFTON MD BIRTHDATE: [birth year] MANA LUDWIG MD CM:PNTRANS [phone] MANA FLORES MD 09/13/18 1338 interface
--- NOTE | ~2018-09-08 | PR ---
[place], [place] PROGRESS NOTE NAME: RITA MELGAR UNIT #: [id number] ROOM: 421 DOCTOR: STEPHANI HENSLEY BIRTHDATE: [birth year] DOS: 09/14/2018 PULMONARY PROGRESS NOTE SUBJECTIVE: The patient was seen and evaluated, the patient is resting comfortably. The patient states he is feeling much better today. Admits to shortness of breath overnight that required him to be put back on oxygen. REVIEW OF SYSTEMS: Remaining systems reviewed, all noted negative. PHYSICAL EXAMINATION: VITAL SIGNS: Normal temperature, heart rate 84, respiratory rate 20, blood pressure 115/80, pulse oxygen saturation 99% on 2 liters of oxygen. HEENT: Head is atraumatic. Eyes nonicterus. NECK: Supple. CARDIOVASCULAR: S1, S2 audible. LUNGS: The patient was noted without any wheezing. Decreased breath sounds in the lower portions of the lungs. ABDOMEN: Soft, nontender and flat. EXTREMITIES: The patient without any acute edema. MUSCULOSKELETAL: The patient was noted with previous known history of muscular dystrophy. CENTRAL NERVOUS SYSTEM: general weakness and fatigue with history of muscular dystrophy. LABORATORY DATA: CMP this morning, normal BUN and creatinine. Sodium 144. ALT is elevated. ASSESSMENT: 1. The patient with stable respiratory status and resolving aspiration pneumonia. 2. History of muscular dystrophy. 3. Transaminitis. PLAN OF MANAGEMENT: At this time, we have ordered a new 2-view chest film to assess the patient. Since this showed no acute changes and the patient is now stable, he is ready to be discharged from a Pulmonary standpoint. Recommend group home home for PT and OT. Also recommend assessment for home oxygen requirements. Dr. STEPHANI HENSLEY, [place], [place] PROGRESS NOTE NAME: RITA MELGAR UNIT #: [id number] ROOM: 421 DOCTOR: STEPHANI HENSLEY BIRTHDATE: [birth year] MANA LUDWIG MD CM:DUANE [phone] STEPHANI HENSLEY 09/14/18 1344 interface
--- NOTE | ~2018-09-08 | PROC NOTE ---
[place], [place] PROCEDURE NOTE [id number] #: [id number] ROOM: 428 DOCTOR: OZIEL FLORES MD,MANA BIRTHDATE: [birth year] DOS: 09/11/2018 BRONCHOSCOPY NOTE PREOPERATIVE DIAGNOSES: The patient with excessive coughing, unable to expectorate sputum, history of muscular dystrophy and acute aspiration pneumonia. POSTOPERATIVE DIAGNOSES: Removal of the moderate to large amount of mucus plug from endobronchial tree subsegments bilaterally. FINDINGS: Acute tracheobronchitis as well. COMPLICATIONS: None. PROCEDURE DESCRIPTION: Informed consent obtained for the patient. The patient brought to the OR and placed in supine position. Conscious sedation administered by the Anesthesia Department. After that, bronchoscope advanced to the airway into laryngeal area. The epiglottis and vocal cord seen, which were moving symmetrically with movements. Bronchoscope advanced to vocal cord in the tracheal lumen. The tracheal lumen was noted with moderate amount of thick mucus secretions with some purulent secretions. All the secretion suctioned out from the tracheal lumen. The briana noted sharp. The right upper, right middle, right lower, left upper, lingular lower bronchi were all examined. The same amount of secretion present in tracheal lumen was also present in the endobronchial subsegments bilaterally causing impaction of the endobronchial subsegment. All secretions suctioned out clear with normal saline wash. Procedure well tolerated by the patient without any difficulty or complications. Friability of the mucosa were noted consistent with acute severe inflammatory changes of the endobronchial tree, greater in the left than the right side. The postoperative findings were discussed with the patient's family members. MANA LUDWIG MD CM:PROCNOTE:PROCEDURE NOTE [id number] MANA FLORES MD
--- NOTE | ~2018-09-08 | CON ---
[place], [place] REPORT OF CONSULTATION NAME: [facility]ELGAR [id number] UNIT #: [id number] ROOM: 421 DOCTOR: OZIEL FLROES MDMANA BIRTHDATE: [birth year] DOS: 09/09/2018 PULMONARY CONSULTATION, EVALUATION, AND MANAGEMENT HISTORY OF PRESENT ILLNESS: This is a 58-year-old white male patient with history of chronic congenital muscular dystrophy. The patient has been admitted to the hospital previously as well. He has developed symptoms increased chest congestion, coughing, which are noted excessive per his spouse. The patient is not expectorating much sputum with symptoms of increase, shortness of breath and fatigue. The patient presented to the Emergency Room for further assessment. Shortness of breath was occurring with mild exertion. He was also complaining of symptoms of chest tightness. There were no chest pain reported. The patient was assessed in the Emergency Room with chest x-ray and CT scan of the chest and then subsequently admitted for further medical management of progressive bronchitis with nonresolution of symptoms with outpatient therapy. The patient has been treated with corticosteroids and the antibiotics by the primary care physician and did not show improvement in the respiratory symptoms or status. REVIEW OF SYSTEMS: CONSTITUTIONAL SYMPTOMS: Fatigue and tiredness noted without any symptoms of fever or chills. EYES: Denies any burning, redness, or tenderness. EARS, NOSE, THROAT SYMPTOMS: Denies sore throat, hoarseness, otalgia, postnasal drainage or epistaxis. CARDIOVASCULAR SYSTEM: Denies angina pain, edema, pain of the lower extremities. GASTROINTESTINAL SYMPTOM: Denies dysphagia, nausea, vomiting, diarrhea, abdominal pain, hematemesis, melena, or hematochezia. Musculoskeletal SYMPTOM: No acute joint pain, redness, or tenderness. SKIN: Denies lesions or rashes. CENTRAL NERVOUS SYSTEM: Chronic muscular dystrophy finding was noted further fatigue this as stated by the patient. Remaining systems were reviewed they were noted all negative. PAST MEDICAL HISTORY: 1. History of chronic congenital muscular dystrophy. 2. Oropharyngeal neurogenic dysphagia with the PEG tube insertion and feeding for the feeding purposes. 3. History of recurrent tracheobronchitis. PAST SURGICAL HISTORY: 1. Tonsillectomy. 2. PEG tube insertion removal and then reinsertion. SOCIAL HISTORY: The patient is and lives at home. Denies history of alcohol use, illicit drug use or tobacco use reported. FAMILY HISTORY: The patient's father at age of 60 due to complication of muscular dystrophy as well. Mother is living 77-year-old with a known medical [place], [place] REPORT OF CONSULTATION NAME: RITA MELGAR UNIT #: [id number] ROOM: 421 DOCTOR: MANA CLIFTON MD BIRTHDATE: [birth year] illnesses. CURRENT MEDICATIONS: Administered for this hospitalization was noted as vitamin D, loratadine, Solu-Medrol 40 mg b.i.d., Lovenox for DVT prophylaxis, DuoNeb, IV Levaquin, and clindamycin. DRUG ALLERGIES: Noted with allergies: 1. PENICILLIN. 2. MORPHINE SULPHATE. PHYSICAL EXAMINATION: GENERAL: This is a 58-year-old white male, patient noted to be awake and alert patient this morning was noted with somewhat increased discharge then usually known. Noted awake and alert, able to answer the questions with the help of assistance from a spouse. He does have signs of acute respiratory distress this morning of assessment. VITAL SIGNS: Height recorded 5 feet 10 inches, weight 276 pounds, BMI 25. Normal temperature, respiratory rate of 18-20, heart rate 107 blood pressure 116/76. Pulse oxygen saturation on room air 96% saturation recorded. HEAD, EYES, EARS, NOSE, AND THROAT: Examination shows head was atraumatic. Eyes nonicterus. NECK: Supple. CARDIOVASCULAR SYSTEM: S1, S2 audible. RESPIRATORY: Decreased breath sounds noted. There was no wheezing or crackles at the present time. ABDOMEN: Soft, nontender and flat. EXTREMITIES: No acute edema. MUSCULOSKELETAL: Noted without any acute deformities of the joints. However, the finding of muscular dystrophy. SKIN: No lesions or rashes. CENTRAL NERVOUS SYSTEM: General weakness was noted all the muscles secondary to muscular dystrophy. LABORATORY AND DIAGNOSTIC DATA: CBC that was done yesterday in the Emergency Room, WBC count 6.7, hemoglobin and hematocrit, platelet count normal. PT/PTT yesterday were normal. CMP yesterday, normal BUN and creatinine. Lactic acid 1.0. CBC of this morning essentially remains normal. CMP patient this morning, glucose was elevated at 204, normal BUN and creatinine. Chest x-ray that was done, 1 view yesterday shows elevation of the right hemidiaphragm without any acute pulmonary infiltration. The patient's CT scan of the chest that was later completed as well findings were reviewed, from the PACS images. Elevation of the right hemidiaphragm noted with area of chronic compression atelectasis. Left lobe infiltration noted possibility of some atelectasis as well, can be excluded. IMPRESSION: 1. Acute bronchitis, possibility of acute pneumonia from aspiration can be completely excluded involving the left lower lobe. 2. History of chronic muscular dystrophy with impaired mobility with general weakness, fatigue, most likely current acute infectious process affecting the [place], [place] REPORT OF CONSULTATION NAME: RITA MELGAR UNIT #: [id number] ROOM: 421 DOCTOR: OZIEL FLORES MD,MANA BIRTHDATE: [birth year] muscles. 3. History of neurogenic dysphagia. PLAN OF MANAGEMENT: At this time, continuation of bronchodilators, and oxygen supplementation. The patient was getting intravenous clindamycin, which would not be needed at the present time. Continue the Levaquin is the only antibiotic. He was also receiving the corticosteroids as this is not needed. Bronchodilators will be continued. There was evidence of wheezing at this time requiring the use of corticosteroid. Hypoglycemia resulting from the corticosteroids. Impaired secretion of the airways and the major airways unable to expectorate sputum because of muscular dystrophy loss of muscle strength of the body. The patient will be continued on Levaquin. The steroids will be discontinued. Continue bronchodilator. Therapeutic bronchoscopy for the patient was planned. Other plan of management additional treatment changes will be made based on progression of his illness. The assessment were discussed with the patient's family members and the patient himself. They were all in agreement for the bronchoscopy. Other therapy, plan of management, care plan with the additional treatment changes will be made based on the progression of his illness. Thanks for allowing me to participate in the care of this patient. MANA LUDWIG MD CM:CONSTR:REPORT OF CONSULTATION 1638 09/24/18 1034 interface
--- NOTE | ~2018-09-08 | EKG ---
[place], [place] ELECTROCARDIOGRAM REPORT NAME: RITA MELGAR UNIT #: [id number] ROOM: 428 DOCTOR: RYANN DRAFT REPORT BIRTHDATE: [birth year] [facility] Test Date: 2018-09-08 Test Time: 13:25:08 Pat Name: RITA MELGAR Department: Room: 428 Gender: M Gasket Supervisor: : 1960 Requested By: FREIDA WALLACE Order Number: [id number] Reading MD: Tyree Juarez MD Measurements Intervals [place] Rate: 65 P: 49 OK: 168 QRS: -70 QRSD: 104 T: 50 QT: 411 QTc: 428 Interpretive Statements Sinus rhythm Left anterior fascicular block Abnormal R-wave progression, late transition ST elevation suggests acute pericarditis Compared to ECG 04/11/2018 11:29:42 No significant changes Electronically Signed On 09-09-2018 11:41:16 PDT by Tyree Juarez MD CM:EKGRPT:ELECTROCARDIOGRAM REPORT [id number] 1141 FREIDA GARZON DRAFT REPORT FREIDA WALLACE MD
--- NOTE | ~2018-09-08 | EKG ---
[place], [place] ELECTROCARDIOGRAM REPORT NAME: RITA MELGAR UNIT #: [id number] ROOM: 428 DOCTOR: RYANN DRAFT REPORT BIRTHDATE: [birth year] [facility] Test Date: 2018-09-08 Test Time: 15:42:42 Pat Name: RITA MELGAR Department: Room: 428 Gender: M Litigation Docket Manager: Ludy Nolasco : 1960 Requested By: FREIDA WALLACE Order Number: [id number] Reading MD: Tyree Juarez MD Measurements Intervals [place] Rate: 62 P: 30 DC: 181 QRS: -71 QRSD: 107 T: 44 QT: 411 QTc: 418 Interpretive Statements Sinus rhythm Left anterior fascicular block Consider right ventricular hypertrophy ST elevation suggests acute pericarditis Compared to ECG 04/11/2018 11:29:42 No significant changes Electronically Signed On 09-09-2018 11:41:29 PDT by Tyree Juarez MD CM:EKGRPT:ELECTROCARDIOGRAM REPORT 1542 1141 FREIDA GARZON DRAFT REPORT FREIDA WALLACE MD
[~2018-09-08 12:42] MED LIST changes: +MUCINEX DM ER1 EACH PO
[2018-09-08 12:45] VITALS: BP 120/72
[2018-09-08 13:17] LABS: BASO # 0.1 10*3/uL (0.0-0.1); BASO % 0.9 % (0.0-1.0); EOS # 0.3 10*3/uL (0.0-0.4); HEMATOCRIT 46.8 % (42.0-52.0); LYMPH # 1.6 10*3/uL (1.3-4.4); LYMPH % 24.2 % (27.0-41.0); MEAN CELL VOLUME 96.9 fl (80.0-94.0); MEAN CORPUSCULAR HGB 31.1 pg (27.0-31.0); MEAN CORPUSCULAR HGB CONC 32.1 g/dl (33.0-37.0); MEAN PLATELET VOLUME 10.9 fl (9.6-12.3); MONO # 0.7 10*3/uL (0.1-1.0); MONO % 9.9 % (3.0-9.0); NEUT % 59.7 % (47.0-73.0); PLATELET COUNT AUTOMATED 168 10*3/uL (130-400); RED BLOOD COUNT 4.83 10*6/uL (4.50-5.90); RED CELL DISTRI WIDTH 14.4 % (0-14.5); WHITE BLOOD COUNT 6.7 10*3/uL (4.8-10.8)
[2018-09-08 13:29] LABS: ACT PARTIAL THROMBO TIME 25.6 SECONDS (20.0-32.1); INTERNATIONAL NORM RATIO 0.9 (2.0-3.5)
[2018-09-08 13:40] LABS: ALBUMIN 3.3 gm/dl (3.1-4.5); ALKALINE PHOSPHATASE 160 U/L (45-117); BUN 15 mg/dl (7-24); CHLORIDE 109 mmol/L (98-107); CREATININE 0.48 mg/dL (0.70-1.30); POTASSIUM 4.2 mmol/L (3.5-5.1); SGOT/AST 139 IU/L (3-35); SGPT/ALT 150 U/L (12-78); SODIUM 145 mmol/L (136-145)
[2018-09-08 13:41] LABS: TROPONIN I < 0.015 ng/ml (<0.045)
[2018-09-08 15:00] VITALS: BP 120/70
[2018-09-08 15:12] LABS: BILIRUBIN NEGATIVE (NEGATIVE); BLOOD NEGATIVE (NEGATIVE); CLARITY SL CLOUDY (CLEAR); COLOR YELLOW (YELLOW); GLUCOSE NEGATIVE (NEGATIVE); KETONE TRACE (NEGATIVE); LEUKO ESTERASE NEGATIVE (NEGATIVE); NITRITE NEGATIVE (NEGATIVE); UROBILINOGEN 0.2 E.U./dl (0.2-1.0)
[2018-09-08 15:19] LABS: BACTERIA TRACE; EPITHELIAL CELLS 0-2; RBC 0-2 rbc/hpf (0-2); WBC 0-2 wbc/hpf (0-5)
[2018-09-08 16:23] VITALS: BP 135/82
--- NOTE | 2018-09-08 16:23 | NUR ---
PER DR. AB ZAZUETA ALREADY BEEN CALLED AND CONSULTS WITH ORDERS GIVEN WHILE IN ED.
--- NOTE | 2018-09-08 16:23 | NUR ---
A 58, admitted to 4E, under the services of LUZMA Curran DO with a diagnosis of SOB, WEAKNESS. Chief complaint is SOB, WEKANESS. Patient arrived via bed from ER. Monitor applied. Initial assessment completed. Vital signs taken and recorded. LUZMA CURRAN DO notified of admission to the unit. Orders received. See assessment for past medical history, medications and allergies. PatienT oriented to unit. Clothing/patient valuable form completed. CALI CHAKRABORTY
--- NOTE | 2018-09-08 16:58 | NUR ---
DR.ALEX BORDEN INFORMED THAT PATIENT HOME MED SARE VERIFIED AND THAT PATIENT HAS A NON-BLANCHABLE AREA TO LEFT INNER BUTTOCK. INFORMED THAT ER WILL BE CALLED FOR STAGING
--- NOTE | 2018-09-08 17:00 | NUR ---
ER NURSE INFORMED OF NON-BLANCHABLE AREA TO LEFT INNER BUTTOCK. STATED SHE WILL COME BACK TO FLOOR. INFOMRED PER POLICY ER TO STAGE, STATED OK.
--- NOTE | 2018-09-08 17:25 | NUR ---
TO LOOK AT NON-BLANCHABLE SANTIAGO TO RIGHT INNER BUTTOCK. STATED IT IS A STAGE I AND WILL BE PLACED IN THEIR DOCUMENTATION.
--- NOTE | 2018-09-08 17:35 | NUR ---
DR.ALEX BORDEN INFORMED THAT AREA WAS STAGE BY [place]. INFORMED TO PLACE CALAZIME CREAM TO AREA AND TO USE OFF LOADING PILLOWS.
--- NOTE | 2018-09-08 19:48 | NUR ---
DR. HAUSER NOTIFIED OF PT'S EKG RESULTS STATING ACUTE PR. PT DENIES ANY CHEST PAIN BUT STATES IT DOES FEEL "A LITTLE BIT TIGHT". HE DENIES ANY TROUBLE BREATHING. VITAL SIGNS ARE STABLE AT THIS TIME. PT PLACED ON 2L NC FOR PaO2 MAINTAINING 89-90% ON ROOM AIR. PT PaO2 NOW 94-98%. NO NEW ORDERS RECIEVED. WILL CONTINUE TO MONITOR.
[2018-09-08 20:00] VITALS: BP 131/70
[2018-09-09] VITALS: BP 127/86
--- NOTE | 2018-09-09 04:47 | NUR ---
PT RESTING QUIETLY IN BED AT THIS TIME. RESPIRATIONS EASY AND NONLABORED. HE DENIES ANY PAIN OR DISCOMFORT. SAFETY MEASURES IN PLACE. WILL CONTINUE TO MONITOR PT.
[2018-09-09 06:11] LABS: HEMATOCRIT 47.1 % (42.0-52.0); MEAN CELL VOLUME 96.9 fl (80.0-94.0); MEAN CORPUSCULAR HGB 30.9 pg (27.0-31.0); MEAN CORPUSCULAR HGB CONC 31.8 g/dl (33.0-37.0); MEAN PLATELET VOLUME 11.6 fl (9.6-12.3); PLATELET COUNT AUTOMATED 169 10*3/uL (130-400); RED BLOOD COUNT 4.86 10*6/uL (4.50-5.90); RED CELL DISTRI WIDTH 14.3 % (0-14.5); WHITE BLOOD COUNT 7.3 10*3/uL (4.8-10.8)
[2018-09-09 06:36] LABS: ALBUMIN 3.5 gm/dl (3.1-4.5); BUN 13 mg/dl (7-24); CHLORIDE 109 mmol/L (98-107); CHOLESTEROL 245 mg/dL (<200); CREATININE 0.67 mg/dL (0.70-1.30); POTASSIUM 3.6 mmol/L (3.5-5.1); SGOT/AST 174 IU/L (3-35); SGPT/ALT 251 U/L (12-78); SODIUM 144 mmol/L (136-145); TOTAL PROTEIN 7.3 gm/dL (6.4-8.2)
[2018-09-09 06:40] LABS: ALKALINE PHOSPHATASE 189 U/L (45-117); HDL CHOLESTEROL 52 mg/dl (40-60); LDL CHOLESTEROL 178 mg/dL (9-159); TRIGLYCERIDES 77 mg/dl (<150); VLDL CHOLESTEROL 15 mg/dL (6-40)
[2018-09-09 06:52] LABS: PLATELET SUFFICIENCY NORMAL (NORMAL); TOTAL CELLS COUNTED 100 #CELLS
[2018-09-09 07:44] LABS: VITAMIN D, 25-HYDROXY 24.9 ng/mL (30-100)
[2018-09-09 08:00] VITALS: BP 110/70; BP 116/76
--- NOTE | 2018-09-09 10:36 | NUR ---
PATIENT MEDICATED WITH TYLENOL FOR C/O LOWER BACK PAIN 06/13. WILL MONITOR
[2018-09-09 12:00] VITALS: BP 112/60
[2018-09-09 16:00] VITALS: BP 110/60
--- NOTE | 2018-09-09 16:15 | NUR ---
DR.ALEX BORDEN INFORMED THAT RECENT EKG ARE READING OFF ACUTE NV. NO NOTED CHANGES FROM PRIOR EKGS THAT SHOWED FALSE ACUTE NV. NO ST ELEVATION NOTED, PATIENT IS ASYMTOMATIC. STATED OK, COPY LEFT IN 'S FOLDER BY RESP THERAPIST.
--- NOTE | 2018-09-09 19:20 | NUR ---
ASSUMED CARE FOR PT AT THIS TIME. REPORT COMPLETED AT BEDSIDE. PT IS RESTING AWAKE IN BED AND DENIES ANY PAIN OR DISCOMFORT. RESPIRATIONS ARE EASY AND NONLABORED. PT AWARE OF PLAN TO COMPLETE BRONCH TOMORROW PER DR. LUDWIG. PREOPERATIVE INSTRUCTIONS REINFORCED. HE DENIES ANY NEEDS AT THE PRESENT TIME. BED LOCKED AND IN THE LOWEST POSITION, CALL LIGHT WITHIN REACH. WILL CONTINUE TO MONITOR PT.
[2018-09-09 20:01] VITALS: BP 126/63
[2018-09-10] VITALS: BP 125/61
--- NOTE | 2018-09-10 03:45 | NUR ---
PT ASLEEP IN BED AT THIS TIME WITH NO OBVIOUS SIGNS/SYMPTOMS OF PAIN OR DISCOMFORT. RESPIRATIONS EASY AND NONLABORED. BED LOCKED AND IN THE LOWEST POSITION, CALL LIGHT WITHIN REACH. WILL CONTINUE TO MONITOR PT.
[2018-09-10 05:53] LABS: BASO % 0.2 % (0.0-1.0); HEMATOCRIT 43.1 % (42.0-52.0); HEMOGLOBIN 13.8 g/dl (14.0-18.0); LYMPH # 1.6 10*3/uL (1.3-4.4); LYMPH % 13.2 % (27.0-41.0); MEAN CELL VOLUME 96.6 fl (80.0-94.0); MEAN CORPUSCULAR HGB 30.9 pg (27.0-31.0); MEAN PLATELET VOLUME 10.8 fl (9.6-12.3); MONO # 1.2 10*3/uL (0.1-1.0); MONO % 9.5 % (3.0-9.0); NEUT # 9.4 10*3/uL (2.3-7.9); NEUT % 76.6 % (47.0-73.0); PLATELET COUNT AUTOMATED 176 10*3/uL (130-400); RED BLOOD COUNT 4.46 10*6/uL (4.50-5.90); RED CELL DISTRI WIDTH 14.6 % (0-14.5); WHITE BLOOD COUNT 12.3 10*3/uL (4.8-10.8)
[2018-09-10 06:06] LABS: ALBUMIN 3.2 gm/dl (3.1-4.5); ALKALINE PHOSPHATASE 149 U/L (45-117); BUN 18 mg/dl (7-24); CHLORIDE 111 mmol/L (98-107); CREATININE 0.48 mg/dL (0.70-1.30); PHOSPHOROUS 2.2 mg/dL (2.5-4.9); POTASSIUM 3.8 mmol/L (3.5-5.1); SGOT/AST 74 IU/L (3-35); SGPT/ALT 187 U/L (12-78); SODIUM 145 mmol/L (136-145); TOTAL PROTEIN 6.6 gm/dL (6.4-8.2)
--- NOTE | 2018-09-10 07:35 | NUR ---
Shift chart check completed.
--- NOTE | 2018-09-10 07:38 | NUR ---
PER CRYSTAL FROM WOUND CARE - BUTTOCK IS RED/BLANCHABLE & NOT A STAGE 1
[2018-09-10 08:00] VITALS: BP 112/58
--- NOTE | 2018-09-10 08:33 | NUR ---
RITA MELGAR [id number] Please refer to the physician's history and physical for past medical history, comorbid conditions, and allergies. Diagnosis: SOB ON EXERTION GENERALIZED WEAKNESS UNABLE TO Alexander Score: 18,LOW OR NO RISK WOUND DESCRIPTIONS: UPON ASSESSMENT OF PATIENT'S BUTTOCKS SKIN IS RED AND BLANCABLE. PATIENT STATES THIS HAS BEEN GOING ON FOR APPROXIMATELY ONE MONTH. PATIENT DENIED PAIN AT TIME OF ASSESSMENT. Surface the patient is resting on: Isoflex SKIN PREVENTION RECOMMENDATION: 1. Pressure redistribution support surface as appropriate 2. Elevate heels 3. Remove boots/TEDS every shift and reapply 4. Head of bed 30 degrees as tolerated 5. Assess nutrition and hydration 6. Manage moisture 7. Avoid the use of containment devices while in bed 8. Use absorptive products on surfaces limit layers of linens on bed 9. Turn and reposition every 1-2 hours in bed and every 1 hour in chair as tolerated 10. Weight shifts every 15 minutes while up in chair 11. Offloading with pillows or device to keep heels elevated off bed 12. Monitor skin at least every shift 13. Inspect under medical devices twice a day WOUND TREATMENT RECOMMENDATIONS: CONTINUE CURRENT ORDERS. WHEEL CHAIR CUSHION WHEN OUT OF BED.
--- NOTE | 2018-09-10 08:48 | NUR ---
DR LUDWIG ROUNDED - CONFIRMED THAT BRONCH RECHEDULED FOR TOMORROW
--- NOTE | 2018-09-10 08:57 | NUR ---
DR David BORDEN ROUNDED
--- NOTE | 2018-09-10 09:00 | NUR ---
Parking Technician in to talk to patient. Patient states lives at home with girlfriend. There are no steps in the home. Physician: vick [facility]acy[facility] Home health services: none Patient's level of ADLs: MODERATE ASSIST Patient has working utilities: all working DME: walker, wheelchair Follow-up physician's appointment after d/c: will be made by hospitalist nurse director upon discharge Does patient want to access PORTAL?: no Discharge plan discussed with patient, patient lives at home with friend, firejackie is his caregiver, patient has MS and has difficuties getting around, girlfriend states patient will be going home when able, discussed with her VNA and she declines any services at this time, case management will follow for any home needs. TARAH WARE
--- NOTE | 2018-09-10 09:45 | NUR ---
Dr. Grider notified of wound care recommendations.
[2018-09-10 12:00] VITALS: BP 111/59
--- NOTE | 2018-09-10 14:00 | NUR ---
PHYSICAL THERAPY Patient evaluated on 4, full evaluation to follow. Continue with PT as per plan of care with fall, ALARM, MAX(a) X 2, MUSCLE DYSTROPHY and acute debility precautions. Will require SNF. PAtient is HIGH complexity via chart review, tests and evaluation: 48140. Thank you for this referral. Melanie Moreland,PT
--- NOTE | 2018-09-10 14:26 | NUR ---
Occupational therapy eval complete on 4 full eval to follow. Precautions include fall risk, bed alarm, IV UE, max assist of 2 to transfer, High complexity level 60973 via chart review, testing, and eval. Recommend OT per POC and SNF to allow safe return home. Thank you for this referral. Karissa Will OTR/l
[2018-09-10 16:00] VITALS: BP 117/62
[2018-09-10 20:00] VITALS: BP 106/57
[2018-09-11] VITALS (8 sets, daily range): BP systolic 111–142; BP diastolic 60–79
--- NOTE | 2018-09-11 04:02 | NUR ---
Recommend follow up for wound care in outpatient setting patient refused at this time.
[2018-09-11 07:11] LABS: BASO % 0.4 % (0.0-1.0); EOS % 0.4 % (1.0-4.0); HEMOGLOBIN 15.6 g/dl (14.0-18.0); LYMPH # 1.4 10*3/uL (1.3-4.4); MEAN CELL VOLUME 99.6 fl (80.0-94.0); MEAN CORPUSCULAR HGB 31.6 pg (27.0-31.0); MEAN CORPUSCULAR HGB CONC 31.8 g/dl (33.0-37.0); MONO # 0.7 10*3/uL (0.1-1.0); MONO % 6.9 % (3.0-9.0); NEUT # 8.1 10*3/uL (2.3-7.9); NEUT % 77.6 % (47.0-73.0); PLATELET COUNT AUTOMATED 177 10*3/uL (130-400); RED BLOOD COUNT 4.93 10*6/uL (4.50-5.90); RED CELL DISTRI WIDTH 15.1 % (0-14.5); WHITE BLOOD COUNT 10.4 10*3/uL (4.8-10.8)
[2018-09-11 07:12] LABS: HEMATOCRIT 49.1 % (42.0-52.0)
--- NOTE | 2018-09-11 07:41 | NUR ---
PT TRANSPORTED DOWN TO SURGERY FOR BRONCHOSCOPY AT THIS TIME.
--- NOTE | 2018-09-11 09:54 | NUR ---
PT RETURNS FROM BRONCHOSCOPY. ALL AM MEDS GIVEN AT THIS TIME. PT HAS FEVER OF 100.2. TYLENOL 650 MG PO GIVEN AT THIS TIME. WILL MONITOR FOR EFFECTIVENESS. CALL LIGHT IN REACH.
[2018-09-11 10:20] LABS: ALBUMIN 3.6 gm/dl (3.1-4.5); ALKALINE PHOSPHATASE 154 U/L (45-117); BUN 13 mg/dl (7-24); CHLORIDE 107 mmol/L (98-107); CREATININE 0.38 mg/dL (0.70-1.30); POTASSIUM 4.4 mmol/L (3.5-5.1); SGOT/AST 43 IU/L (3-35); SGPT/ALT 149 U/L (12-78); SODIUM 146 mmol/L (136-145); TOTAL PROTEIN 6.8 gm/dL (6.4-8.2)
--- NOTE | 2018-09-11 10:46 | NUR ---
Pt was not seen for OT due to a procedure. Will attempt another time or day for OT. Continue with POC. Argelia PERES/Matilda
--- NOTE | 2018-09-11 11:00 | NUR ---
TYLENOL EFFECTIVE. TEMPERATURE 98.1 ORALLY.
--- NOTE | 2018-09-11 11:21 | NUR ---
Patient was just back from getting Broncyscope and was lethargic from the anesthesia. Patient's says he cannot do therapy at this time. Will check back later. BRE TITUS MERCHANDISE SUPERVISOR
--- NOTE | 2018-09-11 11:57 | NUR ---
PHYSICAL THERAPY Pt decliner PT this afternoon. Stated that he wanted to rest and would do therapy tomorrow. Will check on pt at a later time or day. Tammie Nascimento PTA
--- NOTE | 2018-09-11 12:20 | NUR ---
case management visits with patient, patient's girlfriend stated he would be going home when able and denies any home needs
--- NOTE | 2018-09-11 18:04 | NUR ---
EVENING MEDICATION TAKEN WITH EASE AT THIS TIME. NO S/S OF DISTRESS NOTED. NO COMPLAINTS VOICED. WILL CONTINUE TO MONITOR PT. ALL SAFETY MEASURES IN PLACE. CALL LIGHT IN REACH.
--- NOTE | 2018-09-11 19:46 | NUR ---
PATIENT RESTING IN BED WITH AT BEDSIDE. PATIENT DROWSY BUT ARROUSABLE. DENIES PAIN OR SHORTNESS OF BREATH. BED IN LOWEST POSITION, CALL LIGHT IN REACH
--- NOTE | 2018-09-11 21:21 | NUR ---
MEDICATED WITH PRN TYLENOL FOR ELEVATED TEMP. WILL MONITOR
--- NOTE | 2018-09-11 21:37 | NUR ---
DR HAMM AWARE OF ELEVATED TEMP
--- NOTE | 2018-09-11 22:39 | NUR ---
DR [facility]FFE [facility]
[2018-09-12] VITALS: BP 110/64
--- NOTE | 2018-09-12 03:12 | NUR ---
24 HR chart check completed.
[2018-09-12 07:10] LABS: BASO % 0.4 % (0.0-1.0); EOS # 0.1 10*3/uL (0.0-0.4); EOS % 0.8 % (1.0-4.0); HEMATOCRIT 44.7 % (42.0-52.0); HEMOGLOBIN 13.9 g/dl (14.0-18.0); LYMPH # 1.7 10*3/uL (1.3-4.4); LYMPH % 19.5 % (27.0-41.0); MEAN CELL VOLUME 99.1 fl (80.0-94.0); MEAN CORPUSCULAR HGB 30.8 pg (27.0-31.0); MEAN CORPUSCULAR HGB CONC 31.1 g/dl (33.0-37.0); MEAN PLATELET VOLUME 10.8 fl (9.6-12.3); MONO # 0.6 10*3/uL (0.1-1.0); MONO % 7.5 % (3.0-9.0); NEUT % 71.4 % (47.0-73.0); PLATELET COUNT AUTOMATED 154 10*3/uL (130-400); RED BLOOD COUNT 4.51 10*6/uL (4.50-5.90); RED CELL DISTRI WIDTH 14.8 % (0-14.5); WHITE BLOOD COUNT 8.5 10*3/uL (4.8-10.8)
[2018-09-12 07:40] LABS: ALBUMIN 3.1 gm/dl (3.1-4.5); ALKALINE PHOSPHATASE 123 U/L (45-117); BUN 11 mg/dl (7-24); CHLORIDE 107 mmol/L (98-107); CREATININE 0.44 mg/dL (0.70-1.30); POTASSIUM 3.9 mmol/L (3.5-5.1); SGOT/AST 32 IU/L (3-35); SGPT/ALT 106 U/L (12-78); SODIUM 144 mmol/L (136-145); TOTAL PROTEIN 6.5 gm/dL (6.4-8.2)
[2018-09-12 08:00] VITALS: BP 114/60
--- NOTE | 2018-09-12 09:00 | NUR ---
case management visits with patient, girlfriend present, girlfriend stated they would like home health services when discharged, given choice of companies, they chose [facility], will sent a referral to [facility] for when patient is medically stable for discharge
--- NOTE | 2018-09-12 09:01 | NUR ---
PT SITTING UP IN BED. EATING BREAKFAST. NO DISTRESS NOTED. WILL MONITOR
--- NOTE | 2018-09-12 10:45 | NUR ---
PHYSICAL THERAPY Patient seen this am 1:1 for therapy visit and was supine in bed upon therapist arrival. Patient was joined by a family visitor and reports no c/o's pain, other than generalized LE muscle weakness. Patient transfers supine to sit EOB with Min A, tolerating static EOB sit x several minutes, CGA, demonstrating "slouched" posture. Patient then completed sit to stand transfer, MOD A x 1, tolerating approx 1 minute each attempt x several trials. Patient demonstrated POOR upright posture and needed v/c to improve. Patient returned to supine in bed, MIN A and remained with call light, tray table, telephone and bred alarm for safety. Will continue per POC as tolerated, total treatment time 14 minutes. Darien Dolan, COGNOS ARCHITECT
--- NOTE | 2018-09-12 11:00 | NUR ---
OT NOTE Pt was seen this A.M. 1:1 for 15 minute OT session. Upon arrival pt was supine in bed. Pt identified by name and and had no complaints at this time. Pt transferred supine to sit EOB with Yosvany and good use of bed rails for UE support. While sitting EOB challenged pt's dynamic sitting balance needed for increased I and enhanced safety. While weight shifting, crossing midline, and reaching over all planes pt was able to maintain G- sitting balance. Multiple sit to stand transfers completed from bed level with modA and use of w/w for UE support. Challenged pt's static standing tolerance needed for increased I in self care tasks and functional transfers. Pt was able to tolerate aprox 1 minute at a time before sitting due to fatigue. Pt then transferred back into bed with SBA. There he was left with call light in hand, tray table in place, and bed alarm on for safety. Continue with rec D/C plan to SNF. RAVIN Monk/Matilda
[2018-09-12 12:00] VITALS: BP 118/86
[2018-09-12 15:09] LABS: ACID FAST SPEC PROCESSING Concentration (.)
[2018-09-12 16:00] VITALS: BP 139/66
[2018-09-12 20:00] VITALS: BP 130/71
--- NOTE | 2018-09-12 20:27 | NUR ---
AWAKE/ALERT FOR SHIFT ASSESSMENT. PLEASANT/COOPERATIVE WITH CARE. NO VOICED COMPLAINTS AT THIS TIME. CALL LIGHT IN REACH
[2018-09-13] VITALS: BP 137/78
[2018-09-13 07:16] LABS: BASO % 0.5 % (0.0-1.0); EOS # 0.1 10*3/uL (0.0-0.4); EOS % 1.1 % (1.0-4.0); HEMATOCRIT 46.9 % (42.0-52.0); HEMOGLOBIN 14.6 g/dl (14.0-18.0); LYMPH # 1.4 10*3/uL (1.3-4.4); MEAN CELL VOLUME 98.7 fl (80.0-94.0); MEAN CORPUSCULAR HGB 30.7 pg (27.0-31.0); MEAN CORPUSCULAR HGB CONC 31.1 g/dl (33.0-37.0); MEAN PLATELET VOLUME 10.9 fl (9.6-12.3); MONO # 0.6 10*3/uL (0.1-1.0); MONO % 7.5 % (3.0-9.0); NEUT # 6.1 10*3/uL (2.3-7.9); NEUT % 73.5 % (47.0-73.0); PLATELET COUNT AUTOMATED 143 10*3/uL (130-400); RED BLOOD COUNT 4.75 10*6/uL (4.50-5.90); RED CELL DISTRI WIDTH 14.6 % (0-14.5); WHITE BLOOD COUNT 8.3 10*3/uL (4.8-10.8)
[2018-09-13 07:39] LABS: BUN 12 mg/dl (7-24); CHLORIDE 107 mmol/L (98-107); CREATININE 0.34 mg/dL (0.70-1.30); SODIUM 143 mmol/L (136-145)
[2018-09-13 08:00] VITALS: BP 103/66
--- NOTE | 2018-09-13 10:15 | NUR ---
PHYSICAL THERAPY Patient gives informed consent for treatment. Patient was identified by name and . Patient is on 1 liters of spO2 VIA NASAL CANULA. Patient performed supine to sitting at EOB transfer with MIN A X 1. Patient sat on EOB unassisted. Patient sit to stand transfer with MAX A X 2 with verbal cues for pushing off of bed with hands and scooting forwrds to EOB. Patient stood at Walker for 45 seconds with CGA X 2 with verbal cues for upright posture. Patient performed ambulation 5' x 1 with Standard Walker and MIN A X 2 with verbal cues for upright posture. Patient performed transferred to bedside chair with MIN A X 2. Patient performed bilateral LE ther ex 2 x 10 reps each in all planes of movement for strengthening the bilateral LEs in order to improve patient's functional mobility. Patient O2 SAT was 95% and pulse was 107 folowing gait. Patient performed sit to stand from bedside chair with MAX A X 2 and then transfer to wheelchair for transport to X-RAY. Patient SPT to wheelchair with MOD A X 2. Patient left with TRANSPORT PERSONEL. Patient was 1:1 with this CAMERA ENGINEER for 20 minutes total. BRE TITUS CAMERA ENGINEER
--- NOTE | 2018-09-13 10:15 | NUR ---
OT NOTE Pt was seen this A.M. 1:1 for 24 minute OT session. Upon arrival pt was supine in bed. Pt identified by name and and had no complaints at this time. Pt presented to therapy with continuous 1L-O2 via NC which he remained on throughout entire session. Pt transferred supine to sit EOB with Yosvany for assist with UB. While sitting EOB pt donned pants with modA for assist with donninig over toes and pulling up from knee level once standing due to being unsteady without UE support. Multiple sit to stand transfers completed from bed level with Yosvany X 2 and use of standard walker for UE support. Challenged pt's static standing tolerance needed for increased I in self care tasks and functional transfers, pt was able to tolerate aprox 45 seconds at a time before sitting due to fatigue. Pt then completed sit to stand from bed level with Yosvany X 2 followed by stand pivot to recliner with Yosvany X 2 and use of standard walker. Sit to stand then completed from recliner level with maxA X 2 followed by stand pivot to bedside commode with modA X 2. Pt then completed stand pivot from bedside commode to the transport w/c with maxA X 2. Pt was left under transport Ludy supervision. Continue with rec D/C plan to SNF. RAVIN Monk/Matilda
[2018-09-13 12:00] VITALS: BP 126/67
[2018-09-13 16:00] VITALS: BP 135/75
[2018-09-13 20:00] VITALS: BP 127/70
--- NOTE | 2018-09-13 21:19 | NUR ---
UPON ENTERING ROOM PATIENT WAS FOUND LAYING IN BED WITH HEAD BACK AND EYES CLOSED. NASAL CANNULA LAYING ON SIDE OF THE BED. PATIENT ARROUSABLE WITH VERBAL STIMULI. LIPS BLUE IN COLOR. O2 75%. 3 LITERS APPLIED VIA NASAL CANNULA. PATIENT UP TO 94%. PATIENT SITTING UP AND ABLE TO HAVE CONVERSATION AT THIS TIME. STATES HE FEELS BETTER. PILLS TAKEN WITHOUT DIFFICULTY. LIPS ACYANOTIC PRIOR TO LEAVING ROOM. BED ALARM ON, BED IN LOWEST POSITION, O2 INTACT, CALL LIGHT IN REACH
--- NOTE | 2018-09-13 21:27 | NUR ---
DR HAMM AWARE OF LOW PULSE OX WITHOUT OXYGEN ON.
--- NOTE | 2018-09-13 23:00 | NUR ---
Pt placed on nocturnal pulse ox on room air. SpO2 89%-91%. HR 94. Nurse is aware that pt is on test. Will continue to monitor and informed nurse to call with any desaturations! Alarms on and audible.
[2018-09-14] VITALS: BP 168/85
--- NOTE | 2018-09-14 00:55 | NUR ---
NOCTURNAL PULSE OX ALARMING. SAT 72%. 2L NASAL CANNULA APPLIED AND RESPIRATORY NOTIFIED.
--- NOTE | 2018-09-14 01:33 | NUR ---
24 HR chart check completed.
--- NOTE | 2018-09-14 03:55 | NUR ---
PATIENT RESTING IN BED WITH NO S/S OF DISTRESS. BED IN LOWEST POSITION, CALL LIGHT IN REACH
[2018-09-14 05:49] LABS: BUN 12 mg/dl (7-24); CHLORIDE 107 mmol/L (98-107); CREATININE 0.44 mg/dL (0.70-1.30); POTASSIUM 4.4 mmol/L (3.5-5.1); SODIUM 144 mmol/L (136-145)
[2018-09-14 08:00] VITALS: BP 115/80
--- NOTE | 2018-09-14 09:00 | NUR ---
case management visits with patient, mom present, discussed with them a discharge plan including a short term custodial for rehab and iv antibiotics prior to going home, patient was inagreement with this, he stated he had been at [facility] in [place] in the past and would like to return there, brand planner will send referral to [facility], patient will need an insurance precert prior to going to the SNF
--- NOTE | 2018-09-14 10:35 | NUR ---
HOME O2 ASSESSMENT: PRE BP: 133/68, HR 79, RR 18, PULSE OX 94% ON ROOM AIR AT REST. AMBULATED PATIENT WITH 1 ASSIST AND A WALKER TO DOORWAY, PULSE OX DECREASED TO 88% ON ROOM AIR WHILE WALKING. PLACED 2 L/M ON PATIENT, SAT >94%. POST BP: 137/85, HR 80, RR 20, PULSE OX 96% ON 2 L/M. RN AND HOSPITALIST RN NOTIFIED.
--- NOTE | 2018-09-14 11:16 | NUR ---
OT NOTE Attempted to see pt this A.M. for OT session and upon arrival pt was on a breathing treatment. Will check back at a later time/date. RAVIN Monk/Matilda
--- NOTE | 2018-09-14 11:49 | NUR ---
PT SLEEPING, NO DISTRESS NOTED
[2018-09-14 12:00] VITALS: BP 118/62
--- NOTE | 2018-09-14 13:02 | NUR ---
PHYSICAL THERAPY Patient seen this pm 1:1 for therapy visit and was supine in bed following patient care upon therapist arrival. Patient presents with continuous O2-2L via NC and reports no new c/o's at this time. Patient transfers supine to sit EOB with MOD A, tolerating EOB static sit x several minutes to collect himself. Patient needed v/c to improve "slouched" seated posture prior to completing sit to stand transfer, MOD A with use of wh walker standing support. Patient performed SPT to bedside recliner chair, MIN A, wh walker, demonstrating POOR upright posture. Patient then ambulates 10'x 2 to BSC, wh walker, MIN A, completing BSC transfer with MAX A x 2 due to low seat and decreased B UE support. Patient returned to bedside recliner chair and remained with call light, telephone and body alarm for safety. SpO2 97%, HR 85 bpm on average per entire treatment session. Will continue per POC as tolerated, total treatment time 17 minutes. Darien Dolan, PLAN MANAGER
--- NOTE | 2018-09-14 13:25 | NUR ---
OT NOTE Pt was seen this P.M. 1:1 for 17 minute OT session. Upon arrival pt was supine in bed with 2L-O2 beside him but not on. Pt identified by name and and had no complaints at this time. Pt's Spo2 was 85% O2 placed back onto pt with education on importnace of use. After aprox 60 seconds pt's Spo2 elevated to 95%. Pt transferred supine to sit EOB with modA. While sitting EOB challenged pt's dynamic sitting balance needed for increased I and enhanced safety. While weight shifting, crossing midline, and reaching over all planes pt was able to maintain G- sitting balance. Sit to stand completed from bed level with modA and use of standard walker for UE support. Stand pivot completed from EOB to the recliner with modA and use of standard walker with constant verbal prompts for correcting posture and with sequencing. Sit to stand then completed from the recliner with modA X 2 and education on proper hand placement. Functional mobility completed to the beside commode with modA and use of standard walker. There pt transferred on to beside commode with modA and off with maxA X 2. Pt was then left sitting upright in the recliner with call light in hand, tray table in place, and body alarm on for safety. Continue with rec D/C plan to SNF. RAVIN Monk/Matilda
[2018-09-14] MEDS ORDERED: OXYGEN NAS (13:52)
[2018-09-14] MEDS ORDERED: VITAMIN D5000 UNI1 PO (13:52)
[2018-09-14] MEDS ORDERED: LEVAQUIN750 M1 PO (13:52)
--- NOTE | 2018-09-14 14:10 | NUR ---
JACQUES NOTIFIED OF HOME O2. WILL DELIVER A TANK WITHIN AN HOUR.
[2018-09-14 15:19] VITALS: BP 113/56
[2018-09-14 20:00] VITALS: BP 120/66
[2018-09-15] VITALS: BP 129/67
[2018-09-15 08:00] VITALS: BP 107/70
--- NOTE | 2018-09-15 08:30 | NUR ---
Patient resting quietly with no c/o discomfort. Respirations easy and regular. Vital signs stable. No overt distress. VENKAT MICHELLE
[2018-09-15 12:00] VITALS: BP 116/67
[2018-09-15 16:00] VITALS: BP 135/70
[2018-09-15 20:00] VITALS: BP 137/66
[2018-09-16] VITALS: BP 130/69
[2018-09-16 07:17] LABS: BASO % 0.5 % (0.0-1.0); EOS # 0.2 10*3/uL (0.0-0.4); EOS % 2.9 % (1.0-4.0); HEMATOCRIT 44.3 % (42.0-52.0); HEMOGLOBIN 13.7 g/dl (14.0-18.0); LYMPH # 1.8 10*3/uL (1.3-4.4); LYMPH % 21.8 % (27.0-41.0); MEAN CELL VOLUME 99.8 fl (80.0-94.0); MEAN CORPUSCULAR HGB 30.9 pg (27.0-31.0); MEAN CORPUSCULAR HGB CONC 30.9 g/dl (33.0-37.0); MEAN PLATELET VOLUME 10.8 fl (9.6-12.3); MONO # 0.8 10*3/uL (0.1-1.0); MONO % 9.8 % (3.0-9.0); NEUT # 5.2 10*3/uL (2.3-7.9); NEUT % 64.6 % (47.0-73.0); PLATELET COUNT AUTOMATED 162 10*3/uL (130-400); RED BLOOD COUNT 4.44 10*6/uL (4.50-5.90); RED CELL DISTRI WIDTH 14.3 % (0-14.5); WHITE BLOOD COUNT 8.1 10*3/uL (4.8-10.8)
[2018-09-16 08:00] VITALS: BP 110/76
--- NOTE | 2018-09-16 08:00 | NUR ---
Patient resting quietly with no c/o discomfort. Respirations easy and regular. Vital signs stable. No overt distress. DIRECTOR OF FAMILY SERVICE CENTER IN ROOM PERFORMING AM CARE. VENKAT MICHELLE
--- NOTE | 2018-09-16 08:15 | NUR ---
24 HR chart check completed.
[2018-09-16 12:00] VITALS: BP 125/71
--- NOTE | 2018-09-16 12:00 | NUR ---
Patient resting quietly with no c/o discomfort. Respirations easy and regular. Vital signs stable. No overt distress. VENKAT MICHELLE
[2018-09-16 16:00] VITALS: BP 124/62
--- NOTE | 2018-09-16 16:00 | NUR ---
Patient resting quietly with no c/o discomfort. Respirations easy and regular. Vital signs stable. No overt distress. VENKAT MICHELLE
--- NOTE | 2018-09-16 19:26 | NUR ---
24 HR chart check completed.
[2018-09-16 20:00] VITALS: BP 136/65
[2018-09-17] VITALS: BP 150/66
[2018-09-17 06:02] LABS: CREATININE 0.39 mg/dL (0.70-1.30)
[2018-09-17 08:00] VITALS: BP 112/56
--- NOTE | 2018-09-17 08:45 | NUR ---
PHYSICAL THERAPY Patient seen this am 1;1 for therapy visit and was supine in bed with family member present upon therapist arrival. Patient voices no c/o's pain this morning and transfers supine to sit EOB with Min A. Patient performed several sit to stand transfers, MOD A, demonstrating increased difficulty due to decreased UE support. Patient ambulates with use of wh walker, 15' x 1 to bathroom, completing toilet transfer, MAX A, use of R side grab bar, but demonstrating POOR transfer technique. Patient ambulated additional 40'x 1, Min A and returned to bedside chair with increased fatigue and both decreased stride / upright posture. Patient also very unsafe with walker navigation, reaching out with hands and "chasing" walker. Patient was continuous O2-2L via NC during entire treatment and remained WFL's throughout. Patient remained in bedside chair with call light, tray table, telephone and body alarm for safety. Will continue per POC as tolerated, total treatment time 16 minutes. Darien Dolan, CLARIFIER OPERATOR
--- NOTE | 2018-09-17 08:48 | NUR ---
RITA MELGAR [id number] Please refer to the physician's history and physical for past medical history, comorbid conditions, and allergies. Diagnosis: SOB ON EXERTION GENERALIZED WEAKNESS UNABLE TO Alexander Score: 18,AT RISK WOUND DESCRIPTIONS: UPON ASSESSMENT OF PATIENT'S BUTTOCKS SKIN IS RED AND BLANCABLE. PATIENT STATES THIS HAS BEEN GOING ON FOR APPROXIMATELY ONE MONTH. PATIENT DENIED PAIN AT TIME OF ASSESSMENT. Surface the patient is resting on: Isoflex SKIN PREVENTION RECOMMENDATION: 1. Pressure redistribution support surface as appropriate 2. Elevate heels 3. Remove boots/TEDS every shift and reapply 4. Head of bed 30 degrees as tolerated 5. Assess nutrition and hydration 6. Manage moisture 7. Avoid the use of containment devices while in bed 8. Use absorptive products on surfaces limit layers of linens on bed 9. Turn and reposition every 1-2 hours in bed and every 1 hour in chair as tolerated 10. Weight shifts every 15 minutes while up in chair 11. Offloading with pillows or device to keep heels elevated off bed 12. Monitor skin at least every shift 13. Inspect under medical devices twice a day WOUND TREATMENT RECOMMENDATIONS: Continue calazime paste per md order. Continue wheelchair cushion when oob.
--- NOTE | 2018-09-17 09:10 | NUR ---
OT NOTE Pt was seen this A.M. 1:1 for 20 minute OT session. Upon arrival pt was supine in bed. Pt idetnified by name and and had no complaints at this time. Pt presented to therapy with continuous 2L-O2 via NC which he remained on throughout entire session. Pt transferred supine to sit EOB with Yosvany for assist with UB. While sitting EOB pt donned B socks with Yosvany. Sit to stand completed from bed level with modA X 2 and use of w/w for UE support. Functional mobility completed into the bathroom with CGA and use of w/w. Pt required constant verbal and tactile prompts to correct posture and enhance walker safety. Pt transferred on to standard commode wth modA and use of grab bar for UE support. Pt then transferred off standard commode with maxA x 2 and use of grab bar. Functional mobility then completed back to the recliner with CGA and use of w/w. There he was left with call light in hand, trya table in place, and body alarm on for safety. Continue with rec D/C plan to SNF. RAVIN Monk/Matilda
--- NOTE | 2018-09-17 10:50 | NUR ---
REASSED FOR HOME O2 FOLLOWS: SAT 93% WITH 2L/M O2 APPLIED VIA NC AT REST HR 76 BP 97/59 SAT 87% RA AT REST, 2L/M O2 REAPPLIED, SAT TO 93% SAT 97% DURING AMBULATION WITH 2L/M O2 APPLIED VIA NC SAT 95% WITH 2L/M O2 DURING RECOVERY HR 93 BP 133/75 RN NOTIFIED, NOTIFIED, NURSE NOTIFIED PT HAS [facility] FOR HOME O2 AND TANK FROM [facility] HAS BEEN DELIVERED. PT STILL NEEDING HOME O2.
--- NOTE | 2018-09-17 11:43 | NUR ---
RESPIRATORY THERAPY STATES THAT THEY RE ASSESSED PT FOR HOME OXYGEN AND THAT PT QUALIFIES. RESPIRATORY THERAPIST STATES THAT SHE WILL NOTIFY PCP OF FINDINGS.
[2018-09-17 12:00] VITALS: BP 133/79
--- NOTE | 2018-09-17 12:21 | NUR ---
NOTIFIED PHYSICIAN THAT PT AND FAMILY ARE REQUESTING A SCRIPT FOR DUONEBS FOR DISCHARGE.
[2018-09-17] MEDS ORDERED: CLARITIN10 MG PO (14:05)
[2018-09-17] MEDS ORDERED: VENTOLIN 02.5 MG/3 M INH (14:05)
[2018-09-17] MEDS ORDERED: NORCO 7.5-3251 EACH PO (14:05)
--- NOTE | 2018-09-17 14:12 | NUR ---
Discharge instructions reviewed with patient/family. Patient receptive and verbalizes understanding. Follow-up care arranged. Written instructions given to patient/family. NIDA CARLOS
--- NOTE | 2018-09-18 08:29 | NUR ---
OCCUPATIONAL THERAPY CO-SIGN I approve of the Occupational Therapy notes written above. RAFA RAE OTR/Matilda
--- NOTE | 2018-09-18 09:00 | NUR ---
case management faxed patient's information to [facility], spoke to Jadyn and informed her of patient's discharge
--- NOTE | 2018-09-18 16:48 | NUR ---
PHYSICAL THERAPY CO-SIGN I approve of the Physical Therapy notes written above. MARGARITO PELAEZ
[2018-10-12 18:09] LABS: ACID FAST CULTURE Positive (.); M AVIUM COMPLEX Positive (.); M GORDONAE Not Indicated (.); M KANSASII Not Indicated (.); M TUBERCULOSIS COMPLEX Negative (.)
== END 2018-09-17 14:12 | disposition home health service (06) | DRG 177 ==
LOC: ED 12:42 → 4E 14:28 → EDHOLD 14:28 → 4E 14:48
PROVIDERS: Emergency Medicine; Internal Medicine; Internal Medicine Critical Care Medicine; Student in an Organized Health Care Education/Training Program; ADMIT Emergency Medicine
PROC: 0BC78ZZ Extirpation of Matter from Left Main Bronchus, Via Natural or Artificial Opening Endoscopic (ICD-10-PCS; principal; 2018-09-11)
PROC: 0BC38ZZ Extirpation of Matter from Right Main Bronchus, Via Natural or Artificial Opening Endoscopic (ICD-10-PCS; principal; 2018-09-11)
PROC: 0BCB8ZZ Extirpation of Matter from Left Lower Lobe Bronchus, Via Natural or Artificial Opening Endoscopic (ICD-10-PCS; principal; 2018-09-11)
PROC: 0BC88ZZ Extirpation of Matter from Left Upper Lobe Bronchus, Via Natural or Artificial Opening Endoscopic (ICD-10-PCS; principal; 2018-09-11)
PROC: 0BC48ZZ Extirpation of Matter from Right Upper Lobe Bronchus, Via Natural or Artificial Opening Endoscopic (ICD-10-PCS; principal; 2018-09-11)
PROC: 0BC18ZZ Extirpation of Matter from Trachea, Via Natural or Artificial Opening Endoscopic (ICD-10-PCS; principal; 2018-09-11)
PROC: 0BC68ZZ Extirpation of Matter from Right Lower Lobe Bronchus, Via Natural or Artificial Opening Endoscopic (ICD-10-PCS; principal; 2018-09-11)
PROC: 0BC98ZZ Extirpation of Matter from Lingula Bronchus, Via Natural or Artificial Opening Endoscopic (ICD-10-PCS; principal; 2018-09-11)
PROC: 0BC58ZZ Extirpation of Matter from Right Middle Lobe Bronchus, Via Natural or Artificial Opening Endoscopic (ICD-10-PCS; principal; 2018-09-11)
DX: J69.0 Pneumonitis due to inhalation of food and vomit (principal); J96.01 Acute respiratory failure with hypoxia; T17.590A Other foreign object in bronchus causing asphyxiation, initial encounter; R26.2 Difficulty in walking, not elsewhere classified; R53.1 Weakness; G71.11 Myotonic muscular dystrophy; E87.8 Other disorders of electrolyte and fluid balance, not elsewhere classified; E83.41 Hypermagnesemia; R74.8 Abnormal levels of other serum enzymes; D75.89 Other specified diseases of blood and blood-forming organs; J20.9 Acute bronchitis, unspecified; R74.0 Nonspecific elevation of levels of transaminase and lactic acid dehydrogenase [LDH]; R73.9 Hyperglycemia, unspecified; L89.311 Pressure ulcer of right buttock, stage 1; E16.2 Hypoglycemia, unspecified; R13.19 Other dysphagia; E78.5 Hyperlipidemia, unspecified; T38.0X5A Adverse effect of glucocorticoids and synthetic analogues, initial encounter; X58.XXXA Exposure to other specified factors, initial encounter; Y93.89 Activity, other specified; Y99.8 Other external cause status; Y92.89 Other specified places as the place of occurrence of the external cause; Z88.0 Allergy status to penicillin; Z88.5 Allergy status to narcotic agent; Z91.81 History of falling; I25.2 Old myocardial infarction; Z87.01 Personal history of pneumonia (recurrent); Z80.0 Family history of malignant neoplasm of digestive organs; Z82.5 Family history of asthma and other chronic lower respiratory diseases; Z84.89 Family history of other specified conditions; Z79.899 Other long term (current) drug therapy

== ENCOUNTER 2018-11-21 16:50 | Inpatient (IN) | payer OTHER ==
[~2018-11-21] VITALS: Ht 177.8 cm; Wt 79.2 kg
[~2018-11-21 16:50] MED LIST changes: +OXYGEN NAS; +VITAMIN D5000 UNI1 PO
[2018-11-21 16:51] VITALS: BP 129/70
[2018-11-21] MEDS ORDERED: LEVOFLOXACIN500 MG PO (17:33)
--- NOTE | 2018-11-21 17:43 | NUR ---
FAMILY STATING "HE(PT)IS ON AN EXPERIMENTAL TESTING FROM DR LUDWIG FOR 6 MONTHS AND HE HAS BEEN ON IT FOR A MONTH", AN HE(PT)WON'T KEEP HIS OXYGEN ON OR USE IT @ HOME LIKE THEY(PHYSICIANS)TELL HIM TOO EITHER","AN HIS OXYGEN DROPS AN I THINK HE NEEDS A MASK TO KEEP ON ESPECIALLY @ NIGHT". LEAH GONZALEZ APRN- NOTIFIED,PT POSITIONED FOR COMFORT WITH 2L 02 VIA NC APPLIED @ THIS TIME.
[2018-11-21 17:55] LABS: BASO # 0.1 10*3/uL (0.0-0.1); BASO % 0.8 % (0.0-1.0); EOS # 0.3 10*3/uL (0.0-0.4); EOS % 5.2 % (1.0-4.0); HEMATOCRIT 43.4 % (42.0-52.0); HEMOGLOBIN 14.2 g/dl (14.0-18.0); LYMPH # 1.1 10*3/uL (1.3-4.4); LYMPH % 18.6 % (27.0-41.0); MEAN CELL VOLUME 96.9 fl (80.0-94.0); MEAN CORPUSCULAR HGB 31.7 pg (27.0-31.0); MEAN CORPUSCULAR HGB CONC 32.7 g/dl (33.0-37.0); MEAN PLATELET VOLUME 10.6 fl (9.6-12.3); MONO # 0.6 10*3/uL (0.1-1.0); MONO % 10.3 % (3.0-9.0); NEUT # 3.8 10*3/uL (2.3-7.9); NEUT % 64.9 % (47.0-73.0); PLATELET COUNT AUTOMATED 159 10*3/uL (130-400); RED BLOOD COUNT 4.48 10*6/uL (4.50-5.90); WHITE BLOOD COUNT 5.9 10*3/uL (4.8-10.8)
[2018-11-21 18:17] LABS: ALBUMIN 3.3 gm/dl (3.1-4.5); ALKALINE PHOSPHATASE 95 U/L (45-117); BUN 14 mg/dl (7-24); CHLORIDE 107 mmol/L (98-107); CREATININE 0.62 mg/dL (0.70-1.30); POTASSIUM 3.6 mmol/L (3.5-5.1); SGOT/AST 33 IU/L (3-35); SGPT/ALT 39 U/L (12-78); SODIUM 141 mmol/L (136-145); TOTAL PROTEIN 6.5 gm/dL (6.4-8.2)
[2018-11-21 18:58] VITALS: BP 108/64
--- NOTE | 2018-11-21 19:50 | NUR ---
PT WITH SLIGHTLY RED RAISED RASH NOTED TO BILAT UPPER BUTTOCKS/SACRUM-COCCYX NO TX REQUIRED,CAREGIVER "USES A CREAM AN IT IS PRETTY MUCH ALL HEALED". PT POSITIONED FOR COMFORT W/O ACUTE DISTRESS NOTED,FRIEND @ BEDSIDE,SAFETY PRECAUTIONS INTACT AND CALL LIGHT WITHIN REACH.
[2018-11-21 19:53] VITALS: BP 113/73
--- NOTE | 2018-11-21 20:29 | NUR ---
PT PROVIDED A BOX LUNCH AND KASSIDY FRANK @ THIS TIME.
[2018-11-21 21:00] VITALS: BP 124/74
--- NOTE | 2018-11-21 21:00 | NUR ---
Time: 2099 A 58 year old MALE admitted to 5E under services of FLORESITA STRAUSS DO. Pt. arrived via stretcher from ER. Chief complaint: CHEST PAIN, PNEUMONITIS. FARHAN DUNN
[2018-11-21] MEDS ORDERED: ETHAMBUTOL HCL400 MG PO (22:11)
[2018-11-21] MEDS ORDERED: Rimactane,Rifa300 MG PO (22:11)
--- NOTE | 2018-11-21 22:22 | NUR ---
PATIENT MED REC UP TO DATE. DR. ABIDA VELASCOFIED. WILL CONTINUE TO MONITOR.
[2018-11-22] VITALS: BP 96/63
[2018-11-22 06:29] LABS: BASO % 0.5 % (0.0-1.0); EOS % 0.2 % (1.0-4.0); HEMATOCRIT 45.4 % (42.0-52.0); HEMOGLOBIN 14.8 g/dl (14.0-18.0); LYMPH # 0.9 10*3/uL (1.3-4.4); LYMPH % 14.3 % (27.0-41.0); MEAN CORPUSCULAR HGB 31.3 pg (27.0-31.0); MEAN CORPUSCULAR HGB CONC 32.6 g/dl (33.0-37.0); MEAN PLATELET VOLUME 10.9 fl (9.6-12.3); MONO # 0.3 10*3/uL (0.1-1.0); MONO % 5.7 % (3.0-9.0); NEUT # 4.7 10*3/uL (2.3-7.9); NEUT % 79.1 % (47.0-73.0); PLATELET COUNT AUTOMATED 151 10*3/uL (130-400); RED BLOOD COUNT 4.73 10*6/uL (4.50-5.90); RED CELL DISTRI WIDTH 13.9 % (0-14.5); WHITE BLOOD COUNT 5.9 10*3/uL (4.8-10.8)
[2018-11-22 06:49] LABS: ALBUMIN 3.4 gm/dl (3.1-4.5); ALKALINE PHOSPHATASE 88 U/L (45-117); BUN 9 mg/dl (7-24); CHLORIDE 106 mmol/L (98-107); CREATININE 0.45 mg/dL (0.70-1.30); PHOSPHOROUS 2.1 mg/dL (2.5-4.9); POTASSIUM 3.9 mmol/L (3.5-5.1); SGOT/AST 28 IU/L (3-35); SGPT/ALT 43 U/L (12-78); SODIUM 144 mmol/L (136-145); TOTAL PROTEIN 6.8 gm/dL (6.4-8.2)
--- NOTE | 2018-11-22 07:01 | NUR ---
NOTIFIED DR. LUDWIG OF NEW CONSULT. NO NEW ORDERS RECEIVED.
[2018-11-22 08:00] VITALS: BP 106/60
[2018-11-22] MEDS ORDERED: AZITHROMYCIN500 M2 PO (09:50)
--- NOTE | 2018-11-22 10:07 | NUR ---
WOODEN BOAT BUILDER BROUGHT PILL BOTTLES IN FOR RIFAMPIN, AZITHROMYCIN AND ETHABUTOL AND IT WAS CLARIFIED THEY ARE TO BE TAKEN MONDAY, MONDAY AND MONDAY. DR NELSON UPDATED AND GAVE ME NEW ORDERS TO CHANGE.
[2018-11-22 12:00] VITALS: BP 122/64
--- NOTE | 2018-11-22 12:16 | NUR ---
Photonics Engineering Technician in to talk to patient. Patient states lives at home with girlfriend. There are no steps in the home. Physician: stephen hickman [facility] Home health services: none at present Patient's level of ADLs: MODERATE ASSIST Patient has working utilities: all working DME: walker, wheelchair, hospital bed, home oxygen, portable tanks from [facility] Follow-up physician's appointment after d/c: will be made by hospitalist nurse director upon discharge Does patient want to access PORTAL?: no Discharge plan discussed with patient and girlfriend, he lives at home, girlfriend is his primary home care consultant, he has a walker but is primarily wheelchair bound, he has home oxygen and portable tanks, he had [facility] in the past and girlfriend would like have their services again, case managment will notify [facility] when patient is medically stable for discharge , no other needs at this time. TARAH WARE
--- NOTE | 2018-11-22 12:19 | NUR ---
Another Multi-Disciplinary Team meeting was held on 11/22/18, for the purpose of discharge planning. The patient was referred to the following services for follow-up:patient will return home with [facility] services, no discharge date noted TARAH WARE
--- NOTE | 2018-11-22 14:43 | NUR ---
PHYSICAL THERAPY Nursing screen received and chart reviewed. Physical therapy referral received. Thank you. Crystal Matute,PT,DPT
--- NOTE | 2018-11-22 15:39 | NUR ---
PHYSICAL THERAPY Physical therapy evaluation complete, 5E. Moderate complexity PT evaluation (53806) per chart review and evaluation. PT to progress gait, transfers, and safety per POC. Recommend home with home health PT/nursing at discharge. Thank you. Crystal Matute,PT,DPT.
[2018-11-22 16:00] VITALS: BP 119/58
--- NOTE | 2018-11-22 16:16 | NUR ---
Nursing screen received and occupational therapy evaluation received. Thank you. Lilian Will OTr/L
--- NOTE | 2018-11-22 16:41 | NUR ---
Occupational Therapy evaluation completed on 5 with full eval to follow. Precautions include fall risk, bed alarm, muscle hypotonia,PEG tube,impaired ADLs, max +2 transfer assist,high complexity level 34923. Recommend OT per pOC and return home with girlfriend and home health SN, OT PT. Thank you Lilian Will OTr/L
--- NOTE | 2018-11-22 16:57 | NUR ---
PT REQUESTED CODE STATUS BE CHANGED TO DNR-ARREST WHEN I WAS GOING OVER HIS SURGERY PACKET. DR NELSON NOTIFIED.
[2018-11-22 20:00] VITALS: BP 110/64
[2018-11-23] VITALS (8 sets, daily range): BP systolic 105–135; BP diastolic 64–76
--- NOTE | 2018-11-23 07:39 | NUR ---
PT OFF OF FLOOR TO SURGERY FOR A BRONCH.
--- NOTE | 2018-11-23 09:00 | NUR ---
case management visits with patient, he will return home when stable and have [facility]
--- NOTE | 2018-11-23 10:20 | NUR ---
WHILE PASSING MORNING MEDICATIONS, FAMILY IN ROOM STATED THAT PATIENT CAN ONLY TAKE 2 PILLS AT A TIME AND HAS TO WAIT 20 MINUTES BETWEEN PILLS. 2 PILLS ADMINISTERED AND REST WERE PLACED IN LOCKED DRAWERS IN WOW. WILL CONTINUE TO MONITOR.
--- NOTE | 2018-11-23 10:50 | NUR ---
PHYSICAL THERAPY Patient seen this am 1:1 for therapy visit and was supine in bed with his Girlfriend present upon therapist arrival. Patient voices no c/o's pain and transfers supine to sit EOB with SBA. Patient performed sit to stand MOD A with use of std walker walker standing support, completing SPT to bedside chair MIN A. Patient needed v/c to stand tall with improved step sequence during transfer. Patient fatigues quickly needing seated rest break prior to completing several sit to stand transfers from low chair surface, MAX A. Patient remained in bedside chair with call light, tray table and body alarm for safety. Will continue per POC as tolerated, total treatment time 14 minutes. Darien Dolan, HADOOP JAVA DEVELOPER
--- NOTE | 2018-11-23 13:24 | NUR ---
Rodrigo Taylor was seen for occupational therapy on 11/23/18 from 12:25-12:50 secondary to decreased strength, decreased ADL independence, decreased endurance, and decreased balance. When session started, Allan was sitting up in the chair and was able to feed himself after set up. Allan currently requires assistance to open containers secondary to decreased hand strength. Allan is able to wipe his mouth and wash his face with supervision. He requires max assist to complete sit - stand from a low chair and required verbal cue for safety during functional transfers. Allan required max assist to complete functional transfers from chair to bed with a SW. He tolerated standing x 2 minutes during his functionl transfers. Allan requries continued occupational therapy secondary to decreased balance, decreased endurance,and decreased strength to improve his ADL independence. Continued occupational therapy is recommended while Allan is in the hospital and through [facility] when he is discharged. Lacie MORGAN/Matilda
--- NOTE | 2018-11-23 13:47 | NUR ---
PHYSICAL THERAPY CO-SIGN I approve of the Physical Therapy notes written above. MARGARITO PELAEZ PT,DPT
--- NOTE | 2018-11-23 14:00 | NUR ---
IN TO ROOM. PATIENT SITTING IN CHAIR. AWAKE,ALERT AND ORIENTED. FAMILY MEMBER IN ROOM. NO STATED COMPLAINTS. NO S/S OF DISTRESS OR SOB. PULSE OX WITHIN NORMAL LIMITS ON ROOM AIR. CHAIR IN LOCKED POSITION AND CALL LIGHT WITHIN REACH. WILL CONTINUE TO MONITOR.
--- NOTE | 2018-11-23 17:27 | NUR ---
PRN NORCO ADMINISTERED AT THIS TIME. PT C/O BACK PAIN. WILL MONITOR FOR EFFECTIVENESS.
[2018-11-24] VITALS: BP 104/62
[2018-11-24 07:05] LABS: BASO # 0.1 10*3/uL (0.0-0.1); BASO % 0.5 % (0.0-1.0); EOS # 0.1 10*3/uL (0.0-0.4); EOS % 0.8 % (1.0-4.0); HEMATOCRIT 44.6 % (42.0-52.0); HEMOGLOBIN 14.3 g/dl (14.0-18.0); LYMPH # 1.6 10*3/uL (1.3-4.4); LYMPH % 16.4 % (27.0-41.0); MEAN CELL VOLUME 96.7 fl (80.0-94.0); MEAN CORPUSCULAR HGB CONC 32.1 g/dl (33.0-37.0); MONO # 0.7 10*3/uL (0.1-1.0); MONO % 7.2 % (3.0-9.0); NEUT # 7.2 10*3/uL (2.3-7.9); NEUT % 74.9 % (47.0-73.0); PLATELET COUNT AUTOMATED 140 10*3/uL (130-400); RED BLOOD COUNT 4.61 10*6/uL (4.50-5.90); RED CELL DISTRI WIDTH 14.6 % (0-14.5); WHITE BLOOD COUNT 9.6 10*3/uL (4.8-10.8)
[2018-11-24 07:20] LABS: CHLORIDE 107 mmol/L (98-107); POTASSIUM 4.3 mmol/L (3.5-5.1); SODIUM 141 mmol/L (136-145)
[2018-11-24 07:27] LABS: BUN 9 mg/dl (7-24); CREATININE 0.37 mg/dL (0.70-1.30)
[2018-11-24 08:00] VITALS: BP 114/72
[2018-11-24 12:00] VITALS: BP 117/88
--- NOTE | 2018-11-24 12:13 | NUR ---
PER PT CAN BE DISCAHRGED. DR.TORMA URBINA.
[2018-11-24] MEDS ORDERED: PREDNISONE10 MG PO (12:22)
[2018-11-24] MEDS ORDERED: LEVAQUIN750 M1 PO (12:22)
--- NOTE | 2018-11-24 14:55 | NUR ---
Discharge instructions reviewed with patient/family. Patient receptive and verbalizes understanding. Follow-up care arranged. Written instructions given to patient/family. JONNA LAMBERT
[2018-11-24 15:06] LABS: ACID FAST SPEC PROCESSING Concentration (.)
--- NOTE | 2018-12-21 12:58 | NUR ---
HENRIETTA received phone call from patients . She stated [facility] never came out to the home. Due to patient discharge being 11/24/2018. HENRIETTA informed the patients she would have to speak with the patients PCP to get a new order. She understood. -HENRIETTA Foss
[2019-01-03 09:05] LABS: ACID FAST CULTURE Negative (.)
== END 2018-11-24 14:55 | disposition home health service (06) | DRG 194 ==
LOC: ED 16:50 → 5E 19:29 → EDHOLD 19:29 → 5E 20:33
PROVIDERS: Internal Medicine Critical Care Medicine; Nurse Practitioner Family; Student in an Organized Health Care Education/Training Program; ADMIT Internal Medicine
PROC: 0BC68ZZ Extirpation of Matter from Right Lower Lobe Bronchus, Via Natural or Artificial Opening Endoscopic (ICD-10-PCS; principal; 2018-11-23)
PROC: 0BC48ZZ Extirpation of Matter from Right Upper Lobe Bronchus, Via Natural or Artificial Opening Endoscopic (ICD-10-PCS; principal; 2018-11-23)
PROC: 0BC78ZZ Extirpation of Matter from Left Main Bronchus, Via Natural or Artificial Opening Endoscopic (ICD-10-PCS; principal; 2018-11-23)
PROC: 0BC88ZZ Extirpation of Matter from Left Upper Lobe Bronchus, Via Natural or Artificial Opening Endoscopic (ICD-10-PCS; principal; 2018-11-23)
PROC: 0BC38ZZ Extirpation of Matter from Right Main Bronchus, Via Natural or Artificial Opening Endoscopic (ICD-10-PCS; principal; 2018-11-23)
PROC: 0BC58ZZ Extirpation of Matter from Right Middle Lobe Bronchus, Via Natural or Artificial Opening Endoscopic (ICD-10-PCS; principal; 2018-11-23)
PROC: 0BC98ZZ Extirpation of Matter from Lingula Bronchus, Via Natural or Artificial Opening Endoscopic (ICD-10-PCS; principal; 2018-11-23)
PROC: 0BC18ZZ Extirpation of Matter from Trachea, Via Natural or Artificial Opening Endoscopic (ICD-10-PCS; principal; 2018-11-23)
PROC: 0BC28ZZ Extirpation of Matter from Carina, Via Natural or Artificial Opening Endoscopic (ICD-10-PCS; principal; 2018-11-23)
PROC: 0BCB8ZZ Extirpation of Matter from Left Lower Lobe Bronchus, Via Natural or Artificial Opening Endoscopic (ICD-10-PCS; principal; 2018-11-23)
DX: J18.9 Pneumonia, unspecified organism (principal); J98.11 Atelectasis; E44.1 Mild protein-calorie malnutrition; T17.590A Other foreign object in bronchus causing asphyxiation, initial encounter; L21.9 Seborrheic dermatitis, unspecified; R53.1 Weakness; J40 Bronchitis, not specified as acute or chronic; D72.810 Lymphocytopenia; D72.821 Monocytosis (symptomatic); R73.9 Hyperglycemia, unspecified; M54.6 Pain in thoracic spine; M54.2 Cervicalgia; E78.5 Hyperlipidemia, unspecified; G71.11 Myotonic muscular dystrophy; Z66 Do not resuscitate; Z51.5 Encounter for palliative care; R00.0 Tachycardia, unspecified; D72.89 Other specified disorders of white blood cells; E83.41 Hypermagnesemia; E83.39 Other disorders of phosphorus metabolism; R13.19 Other dysphagia; X58.XXXA Exposure to other specified factors, initial encounter; Y93.89 Activity, other specified; Y92.89 Other specified places as the place of occurrence of the external cause; Y99.8 Other external cause status; I25.2 Old myocardial infarction; Z80.8 Family history of malignant neoplasm of other organs or systems; Z82.5 Family history of asthma and other chronic lower respiratory diseases; Z84.89 Family history of other specified conditions; Z88.0 Allergy status to penicillin; Z88.5 Allergy status to narcotic agent; Z79.899 Other long term (current) drug therapy; Z68.25 Body mass index [BMI] 25.0-25.9, adult

== ENCOUNTER → 2018-12-12 | Outpatient (CLI) | payer OTHER ==
[~2018-12-12] MED LIST changes: +AZITHROMYCIN500 M2 PO; +ETHAMBUTOL HCL400 MG PO; +LEVOFLOXACIN500 MG PO; +Rimactane,Rifa300 MG PO; +ZITHROMAX500 MG PO
[2018-12-12 11:53] LABS: BASO % 0.4 % (0.0-1.0); EOS # 0.3 10*3/uL (0.0-0.4); EOS % 4.2 % (1.0-4.0); HEMATOCRIT 45.2 % (42.0-52.0); HEMOGLOBIN 14.4 g/dl (14.0-18.0); LYMPH # 1.7 10*3/uL (1.3-4.4); LYMPH % 23.2 % (27.0-41.0); MEAN CELL VOLUME 98.9 fl (80.0-94.0); MEAN CORPUSCULAR HGB 31.5 pg (27.0-31.0); MEAN CORPUSCULAR HGB CONC 31.9 g/dl (33.0-37.0); MEAN PLATELET VOLUME 11.4 fl (9.6-12.3); MONO # 0.6 10*3/uL (0.1-1.0); NEUT # 4.7 10*3/uL (2.3-7.9); NEUT % 63.8 % (47.0-73.0); PLATELET COUNT AUTOMATED 156 10*3/uL (130-400); RED BLOOD COUNT 4.57 10*6/uL (4.50-5.90); RED CELL DISTRI WIDTH 14.6 % (0-14.5); WHITE BLOOD COUNT 7.4 10*3/uL (4.8-10.8)
[2018-12-12 12:28] LABS: ALBUMIN 3.5 gm/dl (3.1-4.5); BILIRUBIN, DIRECT 0.2 mg/dL (0.0-0.2); TOTAL PROTEIN 6.5 gm/dL (6.4-8.2)
== END | disposition home or self-care (01) ==
LOC: LAB 10:52
PROVIDERS: Internal Medicine Critical Care Medicine
DX: R50.9 Fever, unspecified (principal); Z79.899 Other long term (current) drug therapy

== ENCOUNTER 2019-01-19 15:19 | Emergency (ER) | payer OTHER ==
[~2019-01-19] VITALS: Ht 177.8 cm; Wt 78.9 kg
[~2019-01-19 15:19] MED LIST changes: -ZITHROMAX500 MG PO
[2019-01-19 16:11] LABS: BASO % 0.7 % (0.0-1.0); EOS # 0.3 10*3/uL (0.0-0.4); EOS % 6.2 % (1.0-4.0); HEMATOCRIT 44.7 % (42.0-52.0); HEMOGLOBIN 14.4 g/dl (14.0-18.0); LYMPH # 0.7 10*3/uL (1.3-4.4); LYMPH % 12.4 % (27.0-41.0); MEAN CELL VOLUME 99.1 fl (80.0-94.0); MEAN CORPUSCULAR HGB 31.9 pg (27.0-31.0); MEAN CORPUSCULAR HGB CONC 32.2 g/dl (33.0-37.0); MEAN PLATELET VOLUME 10.3 fl (9.6-12.3); MONO # 0.7 10*3/uL (0.1-1.0); NEUT # 3.8 10*3/uL (2.3-7.9); NEUT % 68.5 % (47.0-73.0); PLATELET COUNT AUTOMATED 144 10*3/uL (130-400); RED BLOOD COUNT 4.51 10*6/uL (4.50-5.90); RED CELL DISTRI WIDTH 14.2 % (0-14.5); WHITE BLOOD COUNT 5.5 10*3/uL (4.8-10.8)
[2019-01-19 16:31] LABS: ALBUMIN 3.2 gm/dl (3.1-4.5); ALKALINE PHOSPHATASE 110 U/L (45-117); BUN 9 mg/dl (7-24); CHLORIDE 111 mmol/L (98-107); CREATININE 0.57 mg/dL (0.70-1.30); POTASSIUM 3.5 mmol/L (3.5-5.1); SGOT/AST 71 IU/L (3-35); SGPT/ALT 92 U/L (12-78); SODIUM 144 mmol/L (136-145); TOTAL PROTEIN 6.8 gm/dL (6.4-8.2)
[2019-01-19] MEDS ORDERED: ZITHROMAX500 MG PO (17:05)
== END 2019-01-19 17:10 | disposition home or self-care (01) ==
LOC: ED 15:19
PROVIDERS: Nurse Practitioner Family
DX: J02.9 Acute pharyngitis, unspecified (principal); Z88.0 Allergy status to penicillin; Z88.5 Allergy status to narcotic agent; Z79.899 Other long term (current) drug therapy

== ENCOUNTER → 2019-03-12 | Outpatient (CLI) | payer OTHER ==
[~2019-03-12] MED LIST changes: +ZITHROMAX500 MG PO
[2019-03-12 12:16] LABS: BASO # 0.1 10*3/uL (0.0-0.1); BASO % 0.9 % (0.0-1.0); EOS # 0.3 10*3/uL (0.0-0.4); EOS % 4.9 % (1.0-4.0); HEMATOCRIT 45.4 % (42.0-52.0); HEMOGLOBIN 14.6 g/dl (14.0-18.0); LYMPH # 1.4 10*3/uL (1.3-4.4); LYMPH % 21.3 % (27.0-41.0); MEAN CELL VOLUME 97.8 fl (80.0-94.0); MEAN CORPUSCULAR HGB 31.5 pg (27.0-31.0); MEAN CORPUSCULAR HGB CONC 32.2 g/dl (33.0-37.0); MEAN PLATELET VOLUME 10.4 fl (9.6-12.3); MONO # 0.6 10*3/uL (0.1-1.0); MONO % 8.9 % (3.0-9.0); NEUT # 4.3 10*3/uL (2.3-7.9); NEUT % 63.7 % (47.0-73.0); PLATELET COUNT AUTOMATED 191 10*3/uL (130-400); RED BLOOD COUNT 4.64 10*6/uL (4.50-5.90); RED CELL DISTRI WIDTH 13.9 % (0-14.5); WHITE BLOOD COUNT 6.7 10*3/uL (4.8-10.8)
[2019-03-12 12:34] LABS: ALBUMIN 3.5 gm/dl (3.1-4.5); ALKALINE PHOSPHATASE 108 U/L (45-117); BILIRUBIN, DIRECT < 0.1 mg/dL (0.0-0.2); SGOT/AST 55 IU/L (3-35); SGPT/ALT 87 U/L (12-78); TOTAL PROTEIN 7.1 gm/dL (6.4-8.2)
== END | disposition home or self-care (01) ==
LOC: LAB 11:31
PROVIDERS: Internal Medicine Critical Care Medicine
DX: Z79.899 Other long term (current) drug therapy (principal)

== ENCOUNTER 2019-03-30 13:20 | Inpatient (IN) | payer OTHER ==
[~2019-03-30] VITALS: Ht 175.2 cm; Wt 77.1 kg
[2019-03-30 13:24] VITALS: BP 121/64
--- NOTE | 2019-03-30 14:11 | NUR ---
THE PT WAS GIVEN A URINAL FOR A URINE SPECIMAN
--- NOTE | 2019-03-30 14:40 | NUR ---
THE PT HAS NOT BEEN ABLE TO PRODUCE A URINE SAMPLE
[2019-03-30 14:42] LABS: BASO % 0.5 % (0.0-1.0); EOS % 0.2 % (1.0-4.0); HEMATOCRIT 42.9 % (42.0-52.0); HEMOGLOBIN 13.9 g/dl (14.0-18.0); LYMPH # 0.5 10*3/uL (1.3-4.4); LYMPH % 8.7 % (27.0-41.0); MEAN CELL VOLUME 98.6 fl (80.0-94.0); MEAN CORPUSCULAR HGB CONC 32.4 g/dl (33.0-37.0); MEAN PLATELET VOLUME 10.1 fl (9.6-12.3); MONO # 0.2 10*3/uL (0.1-1.0); MONO % 4.2 % (3.0-9.0); NEUT # 4.9 10*3/uL (2.3-7.9); NEUT % 86.2 % (47.0-73.0); PLATELET COUNT AUTOMATED 174 10*3/uL (130-400); RED BLOOD COUNT 4.35 10*6/uL (4.50-5.90); RED CELL DISTRI WIDTH 13.7 % (0-14.5); WHITE BLOOD COUNT 5.7 10*3/uL (4.8-10.8)
[2019-03-30 14:57] LABS: ALBUMIN 3.3 gm/dl (3.1-4.5); ALKALINE PHOSPHATASE 102 U/L (45-117); BUN 12 mg/dl (7-24); CHLORIDE 110 mmol/L (98-107); CREATININE 0.57 mg/dL (0.70-1.30); POTASSIUM 3.8 mmol/L (3.5-5.1); SGOT/AST 36 IU/L (3-35); SGPT/ALT 49 U/L (12-78); SODIUM 143 mmol/L (136-145); TOTAL PROTEIN 6.9 gm/dL (6.4-8.2)
--- NOTE | 2019-03-30 15:02 | NUR ---
CRITCAL LA 2.4, REPORTED TO LEAH GONZALEZ GENERAL MANAGER LAND DEPARTMENT
[2019-03-30 15:08] LABS: BILIRUBIN NEGATIVE (NEGATIVE); BLOOD TRACE-INTACT (NEGATIVE); CLARITY CLEAR (CLEAR); COLOR YELLOW (YELLOW); GLUCOSE NEGATIVE (NEGATIVE); KETONE NEGATIVE (NEGATIVE); LEUKO ESTERASE NEGATIVE (NEGATIVE); NITRITE NEGATIVE (NEGATIVE); UROBILINOGEN 0.2 E.U./dl (0.2-1.0)
[2019-03-30 15:12] LABS: BACTERIA TRACE; EPITHELIAL CELLS 0-2; MUCOUS TRACE; RBC 0-2 rbc/hpf (0-2)
--- NOTE | 2019-03-30 15:24 | NUR ---
THE PT IS RESTING ON THE BED WATCHING TV WITH HIS . CALL BUTTONE IS WITHIN REACH. NO NEW VOICED C/O
[2019-03-30 16:00] VITALS: BP 157/83
--- NOTE | 2019-03-30 16:30 | NUR ---
A 58, admitted to 5E, under the services of FLORESITA Strauss DO with a diagnosis of PNEUMONIA. Chief complaint is SHORTNESS OF BREATH, COUGH. Patient arrived via stretcher from ER. Monitor applied. Initial assessment completed. Vital signs taken and recorded. FLORESITA STRAUSS DO notified of admission to the unit. Orders received. See assessment for past medical history, medications and allergies. Patient and/or family oriented to unit. [address] visitation policy reviewed. Clothing/patient valuable form completed. JONNA LAMBERT
--- NOTE | 2019-03-30 17:24 | NUR ---
DR LUDWIG CALLED AND NOTIFIED OF CONSULT.
[2019-03-30] MEDS ORDERED: ZITHROMAX500 MG PO (17:54)
[2019-03-30] MEDS ORDERED: BREO ELLIPTA 21 EACH INH (17:54)
[2019-03-30] MEDS ORDERED: MUCINEX DM 30/61 TAB PO (17:55)
[2019-03-30] MEDS ORDERED: MUCINEX ER600 MG PO (17:55)
--- NOTE | 2019-03-30 17:57 | NUR ---
MED REC UPDATED, DR GILLILAND NOTIFIED.
[2019-03-30 20:00] VITALS: BP 143/83
--- NOTE | 2019-03-30 20:00 | NUR ---
RESTING IN BED. IV FLUIDS INFUSING ORDERED. CALL LIGHT WITHIN REACH.
--- NOTE | 2019-03-30 22:00 | NUR ---
ASSIST OF 1 UP TO BEDSIDE TO USE URINAL.
[2019-03-31] VITALS: BP 108/57
--- NOTE | 2019-03-31 04:00 | NUR ---
RESTING IN BED WITH EYES CLOSED. CALL LIGHT WITHIN REACH; BED ALARM ON.
[2019-03-31 05:57] LABS: BASO % 0.4 % (0.0-1.0); EOS # 0.1 10*3/uL (0.0-0.4); EOS % 1.7 % (1.0-4.0); HEMATOCRIT 42.5 % (42.0-52.0); HEMOGLOBIN 13.8 g/dl (14.0-18.0); LYMPH # 1.7 10*3/uL (1.3-4.4); LYMPH % 23.2 % (27.0-41.0); MEAN CELL VOLUME 96.8 fl (80.0-94.0); MEAN CORPUSCULAR HGB 31.4 pg (27.0-31.0); MEAN CORPUSCULAR HGB CONC 32.5 g/dl (33.0-37.0); MONO # 0.6 10*3/uL (0.1-1.0); MONO % 7.8 % (3.0-9.0); NEUT % 66.6 % (47.0-73.0); PLATELET COUNT AUTOMATED 179 10*3/uL (130-400); RED BLOOD COUNT 4.39 10*6/uL (4.50-5.90); RED CELL DISTRI WIDTH 13.7 % (0-14.5); WHITE BLOOD COUNT 7.5 10*3/uL (4.8-10.8)
--- NOTE | 2019-03-31 06:00 | NUR ---
IV FLUIDS FINISHED; UNHOOKED & PT. NOW HEP LOCKED. PT. VOICES NO C/O AT THIS TIME; CALL LIGHT WITHIN REACH.
[2019-03-31 06:13] LABS: ALBUMIN 3.2 gm/dl (3.1-4.5); ALKALINE PHOSPHATASE 98 U/L (45-117); BUN 9 mg/dl (7-24); CHLORIDE 114 mmol/L (98-107); CREATININE 0.47 mg/dL (0.70-1.30); PHOSPHOROUS 2.4 mg/dL (2.5-4.9); POTASSIUM 3.7 mmol/L (3.5-5.1); SGOT/AST 25 IU/L (3-35); SGPT/ALT 43 U/L (12-78); SODIUM 147 mmol/L (136-145); TOTAL PROTEIN 6.5 gm/dL (6.4-8.2)
[2019-03-31 06:16] LABS: PREALBUMIN 20 mg/dl (20-40)
--- NOTE | 2019-03-31 08:30 | NUR ---
Vamp Marker in to talk to patient. Patient states lives at home with his girlfriend. There are 0 steps in the home. Physician: Dr. Ronni Aviles and Dr. Marin Pharmacy: [facility] Home health services: would like [facility] health as he has had them in the past Patient's level of ADLs: MINIMAL ASSIST Patient has working utilities: yes DME: walker, wheelchair, O2 @ 2L nc prn, portable O2 tanks, nebulizer, O2 supplier [employer] Follow-up physician's appointment after d/c: will be made by the hospitalist nurse director upon discharge Does patient want to access PORTAL?: no Discharge plan discussed with patient and his girlfriend who is at the bedside. He lives at home with his girlfriend. He need minimal assistance with his ADLs and either ambulates with a walker or gets around in a wheelchair. Discussed home health care services and he is agreeable and would like [facility] as he has had them in the past. He would like a prescription for a walker at home as the one he has is his girlfriend's and doesn't fit him properly along with being damaged. He would also like a prescription for a nebulizer as the one he states he has at home is "spitting and sputtering." When medically stable he will be discharged to home with [facility] care services. His girlfriend will provide transportation on discharge. MARGARITO ARREOLA
[2019-03-31 12:00] VITALS: BP 101/62
[2019-03-31 16:00] VITALS: BP 120/64
[2019-03-31 20:00] VITALS: BP 124/64
--- NOTE | 2019-03-31 20:14 | NUR ---
PT AWAKE IN BED. MOTOR COACH SUPERVISOR, LULI, AT BEDSIDE. PT DENIES ANY NEEDS AT PRESENT TIME. WILL MONITIOR. CALL LIGHT IN REACH.
[2019-04-01] VITALS: BP 117/57
[2019-04-01 06:45] LABS: BASO # 0.1 10*3/uL (0.0-0.1); BASO % 0.9 % (0.0-1.0); EOS # 0.4 10*3/uL (0.0-0.4); EOS % 5.9 % (1.0-4.0); HEMATOCRIT 42.8 % (42.0-52.0); HEMOGLOBIN 13.6 g/dl (14.0-18.0); LYMPH # 2.2 10*3/uL (1.3-4.4); LYMPH % 32.6 % (27.0-41.0); MEAN CELL VOLUME 99.3 fl (80.0-94.0); MEAN CORPUSCULAR HGB 31.6 pg (27.0-31.0); MEAN CORPUSCULAR HGB CONC 31.8 g/dl (33.0-37.0); MEAN PLATELET VOLUME 10.2 fl (9.6-12.3); MONO # 0.4 10*3/uL (0.1-1.0); MONO % 5.3 % (3.0-9.0); NEUT # 3.8 10*3/uL (2.3-7.9); PLATELET COUNT AUTOMATED 174 10*3/uL (130-400); RED BLOOD COUNT 4.31 10*6/uL (4.50-5.90); WHITE BLOOD COUNT 6.8 10*3/uL (4.8-10.8)
[2019-04-01 06:52] LABS: BUN 10 mg/dl (7-24); CHLORIDE 115 mmol/L (98-107); PHOSPHOROUS 2.9 mg/dL (2.5-4.9); POTASSIUM 3.8 mmol/L (3.5-5.1); SODIUM 148 mmol/L (136-145)
[2019-04-01 08:00] VITALS: BP 119/60
--- NOTE | 2019-04-01 08:08 | NUR ---
PHYSICAL THERAPY Screen and PT eval received will follow thank you Amira Burton PT
--- NOTE | 2019-04-01 09:00 | NUR ---
PATIENT RESTING QUIETLY IN BED. RESPIRATIONS EASY, REGULAR ON RA. DENIES ANY SOB AT REST. LULI (WHEAT CLEANER) AT BEDSIDE. NO VOICED COMPLAINTS. PATIENT STATES SAID HE COULD GO HOME TODAY. WILL CONTINUE TO MONITOR. VSS.
[2019-04-01] MEDS ORDERED: DOXYCYCLINE100 M3 PO (10:58)
--- NOTE | 2019-04-01 11:58 | NUR ---
Discharge instructions reviewed with patient/family. Patient receptive and verbalizes understanding. Follow-up care arranged. Written instructions given to patient/family. EZRA RAWLS.
[2019-04-01 12:00] VITALS: BP 111/63
[2019-04-01] MEDS ORDERED: ZITHROMAX500 MG PO (13:50)
--- NOTE | 2019-04-02 13:18 | NUR ---
case management faxed patient's information and notified [facility] patient was discharged to home yesterda
== END 2019-04-01 11:58 | disposition home health service (06) | DRG 871 ==
LOC: ED 13:20 → 5E 15:40 → EDHOLD 15:40 → 5E 16:07
PROVIDERS: Nurse Practitioner Family; Student in an Organized Health Care Education/Training Program; ADMIT Internal Medicine
DX: A41.9 Sepsis, unspecified organism (principal); J18.9 Pneumonia, unspecified organism; E44.1 Mild protein-calorie malnutrition; E87.2 Acidosis; E86.0 Dehydration; J20.9 Acute bronchitis, unspecified; Z66 Do not resuscitate; Z51.5 Encounter for palliative care; E78.5 Hyperlipidemia, unspecified; G71.11 Myotonic muscular dystrophy; E55.9 Vitamin D deficiency, unspecified; R13.10 Dysphagia, unspecified; D53.9 Nutritional anemia, unspecified; R65.20 Severe sepsis without septic shock; R74.0 Nonspecific elevation of levels of transaminase and lactic acid dehydrogenase [LDH]; Z88.5 Allergy status to narcotic agent; Z68.25 Body mass index [BMI] 25.0-25.9, adult; Z88.0 Allergy status to penicillin; Z80.0 Family history of malignant neoplasm of digestive organs; Z83.6 Family history of other diseases of the respiratory system; Z79.899 Other long term (current) drug therapy; I25.2 Old myocardial infarction; Z93.1 Gastrostomy status

== ENCOUNTER 2019-04-05 19:21 | Emergency (ER) | payer OTHER ==
[~2019-04-05] VITALS: Ht 180.3 cm; Wt 83.9 kg
[~2019-04-05 19:21] MED LIST changes: +BREO ELLIPTA 21 EACH INH; +MUCINEX DM 30/61 TAB PO; +MUCINEX ER600 MG PO
[2019-04-05 20:32] LABS: BASO % 0.4 % (0.0-1.0); EOS % 0.2 % (1.0-4.0); HEMATOCRIT 44.7 % (42.0-52.0); HEMOGLOBIN 14.5 g/dl (14.0-18.0); LYMPH # 0.5 10*3/uL (1.3-4.4); LYMPH % 4.6 % (27.0-41.0); MEAN CORPUSCULAR HGB 31.8 pg (27.0-31.0); MEAN CORPUSCULAR HGB CONC 32.4 g/dl (33.0-37.0); MEAN PLATELET VOLUME 10.5 fl (9.6-12.3); MONO # 0.5 10*3/uL (0.1-1.0); MONO % 4.7 % (3.0-9.0); NEUT # 8.8 10*3/uL (2.3-7.9); NEUT % 89.8 % (47.0-73.0); PLATELET COUNT AUTOMATED 177 10*3/uL (130-400); RED BLOOD COUNT 4.56 10*6/uL (4.50-5.90); RED CELL DISTRI WIDTH 13.9 % (0-14.5); WHITE BLOOD COUNT 9.8 10*3/uL (4.8-10.8)
[2019-04-05 20:45] LABS: ALBUMIN 3.3 gm/dl (3.1-4.5); ALKALINE PHOSPHATASE 126 U/L (45-117); BUN 14 mg/dl (7-24); CHLORIDE 108 mmol/L (98-107); CREATININE 0.54 mg/dL (0.70-1.30); SGOT/AST 59 IU/L (3-35); SGPT/ALT 88 U/L (12-78); SODIUM 142 mmol/L (136-145); TOTAL PROTEIN 7.1 gm/dL (6.4-8.2)
== END 2019-04-05 23:00 | disposition home or self-care (01) ==
LOC: ED 19:21
PROVIDERS: Physician Assistant
DX: R05 Cough (principal); R09.81 Nasal congestion; R53.83 Other fatigue; Z79.899 Other long term (current) drug therapy; Z88.0 Allergy status to penicillin; Z88.6 Allergy status to analgesic agent

== ENCOUNTER 2019-04-08 07:16 | Inpatient (IN) | payer OTHER ==
[~2019-04-08] VITALS: Ht 175.2 cm; Wt 75.5 kg
[2019-04-08 07:24] VITALS: BP 97/52
[2019-04-08 08:33] LABS: BASO # 0.1 10*3/uL (0.0-0.1); EOS # 0.2 10*3/uL (0.0-0.4); EOS % 3.1 % (1.0-4.0); HEMATOCRIT 41.9 % (42.0-52.0); HEMOGLOBIN 13.3 g/dl (14.0-18.0); LYMPH # 2.5 10*3/uL (1.3-4.4); LYMPH % 40.3 % (27.0-41.0); MEAN CELL VOLUME 99.8 fl (80.0-94.0); MEAN CORPUSCULAR HGB 31.7 pg (27.0-31.0); MEAN CORPUSCULAR HGB CONC 31.7 g/dl (33.0-37.0); MEAN PLATELET VOLUME 10.5 fl (9.6-12.3); MONO # 0.5 10*3/uL (0.1-1.0); MONO % 8.6 % (3.0-9.0); NEUT # 2.9 10*3/uL (2.3-7.9); NEUT % 46.8 % (47.0-73.0); PLATELET COUNT AUTOMATED 182 10*3/uL (130-400); RED CELL DISTRI WIDTH 13.9 % (0-14.5); WHITE BLOOD COUNT 6.1 10*3/uL (4.8-10.8)
[2019-04-08 08:40] LABS: ACT PARTIAL THROMBO TIME 28.8 SECONDS (20.0-32.1); INTERNATIONAL NORM RATIO 0.9 (2.0-3.5)
[2019-04-08 08:46] LABS: ALBUMIN 2.9 gm/dl (3.1-4.5); ALKALINE PHOSPHATASE 109 U/L (45-117); BUN 10 mg/dl (7-24); CHLORIDE 111 mmol/L (98-107); CREATININE 0.39 mg/dL (0.70-1.30); POTASSIUM 3.6 mmol/L (3.5-5.1); SGOT/AST 23 IU/L (3-35); SGPT/ALT 54 U/L (12-78); SODIUM 145 mmol/L (136-145); TOTAL PROTEIN 6.4 gm/dL (6.4-8.2)
[2019-04-08 08:56] LABS: TROPONIN I < 0.015 ng/ml (<0.045)
[2019-04-08] MEDS ORDERED: BENZONATATE200 MG PO (09:40)
[2019-04-08] MEDS ORDERED: MUCINEX D ER 61 EACH PO (09:40)
[2019-04-08] MEDS ORDERED: Nizoral 2%15 GM T (09:40)
[2019-04-08] MEDS ORDERED: PREDNISONE10 MG PO (09:41)
--- NOTE | 2019-04-08 10:20 | NUR ---
Time: 1019 A 58 year old MALE admitted to 5E under services of LEE ANN CARBAJAL DO. Pt. arrived via stretcher from ER. Chief complaint: COUGH, CONGESTION, RUNNY NOSE, UNABLE TO EXPECTORATE. RICHARD SAAVEDRA
[2019-04-08] MEDS ORDERED: ALBUTEROL2.5 MG/0.5 INH (10:34)
[2019-04-08] MEDS ORDERED: NORCO 5-325 TA1 EACH PO (10:36)
[2019-04-08 11:10] VITALS: BP 120/77
[2019-04-08 11:14] VITALS: BP 103/58
--- NOTE | 2019-04-08 13:06 | NUR ---
DR. LUDWIG NOTIFIED OF CONSULT.
--- NOTE | 2019-04-08 13:20 | NUR ---
MEDICATED WITH PRN PO NORCO FOR BACK AND RIGHT SHOULDER PAIN.
--- NOTE | 2019-04-08 14:16 | NUR ---
PRN PO NORCO EFFECTIVE FOR PAIN, PER PATIENT.
[2019-04-08 16:00] VITALS: BP 116/77
[2019-04-08 20:00] VITALS: BP 123/75
[2019-04-09] VITALS: BP 133/83
--- NOTE | 2019-04-09 04:49 | NUR ---
Patient resting quietly with no c/o discomfort. Respirations easy and regular. No overt distress. LARRY AGUILAR
[2019-04-09 06:29] LABS: BASO # 0.1 10*3/uL (0.0-0.1); BASO % 0.6 % (0.0-1.0); EOS # 0.6 10*3/uL (0.0-0.4); EOS % 7.2 % (1.0-4.0); HEMATOCRIT 45.1 % (42.0-52.0); HEMOGLOBIN 14.1 g/dl (14.0-18.0); LYMPH # 2.1 10*3/uL (1.3-4.4); LYMPH % 24.8 % (27.0-41.0); MEAN CELL VOLUME 99.6 fl (80.0-94.0); MEAN CORPUSCULAR HGB 31.1 pg (27.0-31.0); MEAN CORPUSCULAR HGB CONC 31.3 g/dl (33.0-37.0); MEAN PLATELET VOLUME 10.5 fl (9.6-12.3); MONO # 0.9 10*3/uL (0.1-1.0); NEUT # 4.7 10*3/uL (2.3-7.9); PLATELET COUNT AUTOMATED 205 10*3/uL (130-400); RED BLOOD COUNT 4.53 10*6/uL (4.50-5.90); RED CELL DISTRI WIDTH 13.7 % (0-14.5); WHITE BLOOD COUNT 8.3 10*3/uL (4.8-10.8)
[2019-04-09 06:53] LABS: BUN 13 mg/dl (7-24); CHLORIDE 107 mmol/L (98-107); CHOLESTEROL 201 mg/dL (<200); CREATININE 0.46 mg/dL (0.70-1.30); FREE T4 1.07 ng/dl (0.76-1.46); HDL CHOLESTEROL 41 mg/dl (40-60); LDL CHOLESTEROL 122 mg/dL (9-159); PHOSPHOROUS 3.3 mg/dL (2.5-4.9); POTASSIUM 4.2 mmol/L (3.5-5.1); SODIUM 143 mmol/L (136-145); TRIGLYCERIDES 192 mg/dl (<150); VLDL CHOLESTEROL 38 mg/dL (6-40)
[2019-04-09 06:58] LABS: ACT PARTIAL THROMBO TIME 27.7 SECONDS (20.0-32.1); INTERNATIONAL NORM RATIO 0.9 (2.0-3.5)
[2019-04-09 07:52] LABS: VITAMIN D, 25-HYDROXY 40.2 ng/mL (30-100)
[2019-04-09 08:00] VITALS: BP 117/66
--- NOTE | 2019-04-09 08:16 | NUR ---
PHYSICAL THERAPY Screen and PT eval received will follow thank you Amira Burton PT
--- NOTE | 2019-04-09 08:20 | NUR ---
MEDICATED WITH PRN PO NORCO FOR NECK AND BACK PAIN.
--- NOTE | 2019-04-09 11:35 | NUR ---
Medical Surgical Tech in to talk to patient. Patient states lives at HOME with LOAN SERVICING REPRESENTATIVE. There are NO steps in the home. Physician: DR ALMANZAR [facility]acy: [facility] Home health services: [facility] Patient's level of ADLs: MODERATE ASSIST Patient has working utilities: YES DME: USES A WALKER THAT IS NOT HIS, LOAN SERVICING REPRESENTATIVE STATES HE NEEDS A NEW ONE AND A NEBULIZER Follow-up physician's appointment after d/c: WILL BE MADE BY HOSPITALIST NURSE DIRECTOR ON DISCHARGE Does patient want to access PORTAL?: NO Discharge plan PT LIVES AT HOME WITH A CAREGIVER WHO ASSIST HIM WITH HIS DAILY NEEDS. PT AND CAREGIVER STATE THAT PT WILL RETURN HOME ON DISCHARGE WHEN MEDICALLY STABLE. THEY DO WANT PT ACCESSED TO SEE IF HE WOULD BENEFIT FROM A NEBULIZER. WILL PASS ALONG TO [facility]. PT HAS [facility] SET UP FROM PREVIOUS ADMISSION. WILL CONTINUE TO FOLLOW. WILL HAVE A RIDE HOME ON DISCHARGE.. JOLENE CEDILLO
[2019-04-09 12:00] VITALS: BP 120/69
--- NOTE | 2019-04-09 15:51 | NUR ---
Occupational therapy orders received and nursing screen received. Will follow up with patient. Thank you. Koki Varela, OTR/L
[2019-04-09 16:00] VITALS: BP 114/73
--- NOTE | 2019-04-09 17:22 | NUR ---
MEDICATED WITH PRN PO NORCO FOR LOWER BACK AND ABDOMINAL PAIN.
--- NOTE | 2019-04-09 17:27 | NUR ---
Discharge instructions reviewed with patient/family. Patient receptive and verbalizes understanding. Follow-up care arranged. Written instructions given to patient/family. PATIENT DISCHARGED TO FRONT LOBBY WITH , FOR TRANSPORT HOME BY PRIVATE VEHICLE. RICHARD SAAVEDRA
[2019-04-09 20:00] VITALS: BP 112/68
--- NOTE | 2019-04-09 22:53 | NUR ---
24 HR chart check completed.
[2019-04-10] VITALS: BP 119/67
--- NOTE | 2019-04-10 05:25 | NUR ---
patient alert and getting cleaned up prior to bronchoscopy.
[2019-04-10 08:00] VITALS: BP 101/71
--- NOTE | 2019-04-10 10:40 | NUR ---
Occupational therapy orders received and OT evaluation completed in full on floor five. Patient precautions include fall risk, ww use, h/o muscular dystrophy, bed/chair alarm, SOB, and 2LO2. Per OT eval, OT recommends a SNF. However, patient and caregiver would like to return home with SN, OT, and PT. Patient complexity is mod, [id number]. Thank you for the referral. Koki Varela OTR/L
--- NOTE | 2019-04-10 11:41 | NUR ---
PHYSICAL THERAPY Sheron completed moderate level of complexity [id number] full report to follow pt's Wendy in room at time of assessment stating they want to go home with home health, she has been his general warehouse worker and does not have any concerns with managing him at home, but would like home health to work with in the home. PT to work on transfers/amb/balance/safety and strengthening. Amira Burton PT
[2019-04-10 12:00] VITALS: BP 97/61
--- NOTE | 2019-04-10 13:28 | NUR ---
PT BRONCH WAS NOT DONE TODAY AND RESCHEDULED FOR TOMORROW. WILL CONTINUE TO FOLLOW.
[2019-04-10 16:00] VITALS: BP 110/86
[2019-04-10 20:00] VITALS: BP 117/58
--- NOTE | 2019-04-10 22:29 | NUR ---
24 HR chart check completed.
[2019-04-11] VITALS (9 sets, daily range): BP systolic 109–139; BP diastolic 62–95
--- NOTE | 2019-04-11 03:21 | NUR ---
SLEEPING WITH HEAD OF BED AT HIGH ELEVATED. NO ACUTE DISTRESS NOTED.
--- NOTE | 2019-04-11 07:46 | NUR ---
PT TUCKER FOR BRONCHOSCOPY
--- NOTE | 2019-04-11 09:03 | NUR ---
OT NOTE Attempted to see pt this A.M. for OT session and upon arrival pt was out of the room for surgery. Will check back at a later time/date and continue with POC as able. RAVIN Arias/Matilda
--- NOTE | 2019-04-11 11:00 | NUR ---
OT NOTE Pt was seen this A.M. 1:1 for 15 minute OT session. Upon arrival pt was supine in bed. Pt identified by name and and had no complaints at this time. Pt presented to therapy with continuous 5L-O2 via NC which he remained on throughout the entire session. Pt transferred supine to sit EOB with Yosvany. While sitting EOB pt donned pants with modA. Sit to stand then completed from the bed level with Yosvany and use of w/w. Functional mobility was then completed to the bathroom and back with Yosvany X 2 and use of w/w. Pt required constant verbal prompts throughout for correcting his posture and walker safety. Functional mobility was then completed back to the recliner with call light in hand, tray table in place, and body alarm activated for safety. Continue with rec D/C plan to SNF. ANGELINE Arias
--- NOTE | 2019-04-11 11:33 | NUR ---
PHYSICAL THERAPY TREATMENT TIME: 10:32 AM - 10:50 AM 18 MINUTES Patient presernted to therapy in supine in bed with head of bed elevated and bed alarm activated. Patient was identified by name and on wristband. Patient gives informed consent for treatment. Patient is on 5 liters of spO2 VIA NASAL CANULA. Patient performed supine to sitting transfer to EOB with SBA. Patient sat on EOB with SBA. Patient performed sit to stand transfer with MIN A X 2 and verbal cues for pushing off bed with hands. Patient performed ambulation with Wh Walker and CGA X 2-MIN A X 2 with patient being very unsafe with gait and requiring constant verbal cues for staying close to walker, upright posture and keeping knees locked in extension. Patient stayed too far behind Walker and was unsafe/unsteady with turning. Patient sat in bedside chair with CGA X 1. Patient performed seated bilateral LE ther ex 2 x 10 reps each in all planes of movement for strengthening the LEs in order to improve patient's functional mobility. Exercises included were LAQs, MARCHES, HEEL/TOE RAISES and HIP ABDUCTION. Patient was left in bedside chair with call light within reach, chair alarm tested and attached to patient and tray table in front of patient. Patient was 1:1 with this MOHEL for 18 minutes total. BRE TITUS MOHEL
--- NOTE | 2019-04-11 12:41 | NUR ---
PT HAVING BRONCH TODAY.
--- NOTE | 2019-04-11 13:20 | NUR ---
PT C/O OF BACK PAIN, RATING 5/10 PRN NORCO GIVEN PER ORDER
--- NOTE | 2019-04-11 14:00 | NUR ---
PT RESTING IN BED WITH EYES CLOSED, AT BEDSIDE, NO FURTHER COMPLAINTS OF PAIN AT THIS TIME, WILL CONTINUE TO MONITOR
--- NOTE | 2019-04-11 22:55 | NUR ---
24 HR chart check completed.
[2019-04-12] VITALS: BP 107/65
[2019-04-12 07:07] LABS: BASO # 0.1 10*3/uL (0.0-0.1); BASO % 0.6 % (0.0-1.0); EOS # 0.5 10*3/uL (0.0-0.4); EOS % 5.1 % (1.0-4.0); HEMATOCRIT 44.6 % (42.0-52.0); HEMOGLOBIN 13.8 g/dl (14.0-18.0); LYMPH # 1.8 10*3/uL (1.3-4.4); LYMPH % 19.9 % (27.0-41.0); MEAN CELL VOLUME 99.1 fl (80.0-94.0); MEAN CORPUSCULAR HGB 30.7 pg (27.0-31.0); MEAN CORPUSCULAR HGB CONC 30.9 g/dl (33.0-37.0); MEAN PLATELET VOLUME 10.4 fl (9.6-12.3); MONO # 0.7 10*3/uL (0.1-1.0); MONO % 7.3 % (3.0-9.0); NEUT % 66.7 % (47.0-73.0); PLATELET COUNT AUTOMATED 202 10*3/uL (130-400); RED CELL DISTRI WIDTH 13.8 % (0-14.5); WHITE BLOOD COUNT 8.9 10*3/uL (4.8-10.8)
[2019-04-12 07:21] LABS: CREATININE 0.46 mg/dL (0.70-1.30)
--- NOTE | 2019-04-12 07:30 | NUR ---
REPORT RECEIVED. PT SLEEPING AT THIS TIME. CALL LIGHT IN REACH
[2019-04-12 08:00] VITALS: BP 110/58
--- NOTE | 2019-04-12 09:00 | NUR ---
PT FAMILY AT BEDSIDE. PT ENCOURAGED TO TURN. CALL LIGHT INREACH
--- NOTE | 2019-04-12 09:51 | NUR ---
OT NOTE Pt was seen this A.M. 1:1 for 25 minute OT session. Upon arrival pt was supine in bed. Pt identified by name and and had no complaints at this time. Pt presented to therapy with continuous 2L-O2 via NC which he remained on throughout the entire session. Pt transferred supine to sit EOB with SBA. Sit to stand completed from bed level with modA and use of w/w, pt was educated on proper hand placement for increased I and improved technique. Functional mobility was then completed to the bathroom with Yosvany and use of w/w. Throughout pt required constant verbal and tactile prompts for correcting his posture, staying closer to the walker, and staying within the walker. Pt presented with poor carry over. Pt transferred on to standard commode with modA and off with maxA and use of grab bar for UE support. Functional mobility was then completed back to the recliner. While seated pt completed BUE towel exercises over all planes of motion for 1 X 10 to increase and restore maximum functional use and increased I in functional transfers. Pt was left sitting upright in the recliner with call light in hand, tray table in place, and body alarm activated for safety. Continue with rec D/C plan to SNF. ANGELINE Arias
--- NOTE | 2019-04-12 10:08 | NUR ---
PHYSICAL THERAPY TREATMENT TIME: 09:35 AM - 09:50 AM 15 MINUTES Patient presented to therapy in supine with report of no pain and no other complaints. Patient gives informed consent for treatment. Patient was identified by name and on wristband. Patient is on 2 liters of spO2 VIA NASAL CANULA. Patient performed supine to sitting on EOB transfer with SBA. Patient sat on EOB with SBA. Patient performed sit to stand from EOB with MOD A X 1. Patient ambulated with Wh Walker and MIN A X 1 for 20' x 2 with poor walker safety staying too far back from JASON of Walker and leaning forwards when unnecessary. Patient required maximum verbal cues for upright posture, pushing down on Walker with hands and locking knees into extension to prevent knee buckle. Patient MAX A X 1 STS off commode. Patient sat in bedside chair and performed bilateral LE ther ex in all planes of movement 2 x 10 reps each for strengthening the LEs in order to improve patient patient's functional mobility. Patient was left in bedside chair with call light within reach, chair alarm tested and attached to patient and tray table near patient. Patient was connected to wall outlet with 2 liters of spO2. Patient was 1:1 with this REED OR WIND INSTRUMENT TUNER for 15 minutes total. BRE TTIUS REED OR WIND INSTRUMENT TUNER
[2019-04-12 12:00] VITALS: BP 111/62
--- NOTE | 2019-04-12 12:21 | NUR ---
CAREGIVER REQUESTING A WHEEL WALKER FOR PT. PT IS ROOM AND SAID IT WOULD BENEFIT PT. WILL FAX ORDER AND NOTES WHEN AVAILABLE.
--- NOTE | 2019-04-12 13:35 | NUR ---
REFERRAL FAXED TO [facility].
--- NOTE | 2019-04-12 16:34 | NUR ---
OCCUPATIONAL THERAPY CO-SIGN I approve of the Occupational Therapy notes written above. RAFA RAE OTR/Matilda
--- NOTE | 2019-04-12 16:35 | NUR ---
PHYSICAL THERAPY CO-SIGN I approve of the Physical Therapy notes written above. Amira Burton PT
[2019-04-12 17:09] LABS: ACID FAST SPEC PROCESSING Concentration (.)
[2019-04-12 20:00] VITALS: BP 117/64
--- NOTE | 2019-04-12 20:00 | NUR ---
PATIENT SITTING UP IN BED, STATES HE IS COUGHING LITTLE UP. PATIENT STATES HE IS FEELING BETTER. NO NEW COMPLAINTS. PATIENT LEFT WITH CALL LIGHT IN REACH.
[2019-04-13] VITALS: BP 122/69
[2019-04-13 08:00] VITALS: BP 132/60
--- NOTE | 2019-04-13 08:57 | NUR ---
PRN NORCO GIVEN FOR COMPLAINTS OF NECK PAIN RATED A 4/10. wILL MONITOR FOR EFFECTIVENESS.
--- NOTE | 2019-04-13 09:57 | NUR ---
RE-EVALUATED AFTER PRN NORCO. PT STATES SOME RELIEF WITH PAIN MEDICATION. MEDICATION EFFECTIVE. CONTINUE TO MONITOR THE PT
[2019-04-13] MEDS ORDERED: LEVAQUIN750 M1 PO (12:34)
--- NOTE | 2019-04-13 12:59 | NUR ---
SPOKE WITH FOSTER AT [facility] WHO STATES THAT THE PT WILL BE SEEN ON MONDAY.
--- NOTE | 2019-04-13 12:59 | NUR ---
Discharge instructions reviewed with patient/family. Patient receptive and verbalizes understanding. Follow-up care arranged. Written instructions given to patient/family. IV REMOVED WITHOUT COMPLICATIONS. ALL BELONGINGS GATHERED AND SENT HOME WITH PT. [facility] WILL SEE PT ON MONDAY, RESUME CARE. PT WILL BE TAKEN DOWN TO LOBBY IN WHEELCHAIR. COLBY CARLISLE
== END 2019-04-13 12:59 | disposition home health service (06) | DRG 177 ==
LOC: ED 07:16 → 5E 09:22 → EDHOLD 09:22 → 5E 09:28
PROVIDERS: Emergency Medicine; Internal Medicine; Internal Medicine Critical Care Medicine; ADMIT Family Medicine
PROC: 0BC28ZZ Extirpation of Matter from Carina, Via Natural or Artificial Opening Endoscopic (ICD-10-PCS; principal; 2019-04-10)
PROC: 0BC68ZZ Extirpation of Matter from Right Lower Lobe Bronchus, Via Natural or Artificial Opening Endoscopic (ICD-10-PCS; principal; 2019-04-10)
PROC: 0BC98ZZ Extirpation of Matter from Lingula Bronchus, Via Natural or Artificial Opening Endoscopic (ICD-10-PCS; principal; 2019-04-10)
PROC: 0BC38ZZ Extirpation of Matter from Right Main Bronchus, Via Natural or Artificial Opening Endoscopic (ICD-10-PCS; principal; 2019-04-10)
PROC: 0BCB8ZZ Extirpation of Matter from Left Lower Lobe Bronchus, Via Natural or Artificial Opening Endoscopic (ICD-10-PCS; principal; 2019-04-10)
PROC: 0BC48ZZ Extirpation of Matter from Right Upper Lobe Bronchus, Via Natural or Artificial Opening Endoscopic (ICD-10-PCS; principal; 2019-04-10)
PROC: 0BC88ZZ Extirpation of Matter from Left Upper Lobe Bronchus, Via Natural or Artificial Opening Endoscopic (ICD-10-PCS; principal; 2019-04-10)
PROC: 0BC58ZZ Extirpation of Matter from Right Middle Lobe Bronchus, Via Natural or Artificial Opening Endoscopic (ICD-10-PCS; principal; 2019-04-10)
PROC: 0BC18ZZ Extirpation of Matter from Trachea, Via Natural or Artificial Opening Endoscopic (ICD-10-PCS; principal; 2019-04-10)
PROC: 0BC78ZZ Extirpation of Matter from Left Main Bronchus, Via Natural or Artificial Opening Endoscopic (ICD-10-PCS; principal; 2019-04-10)
DX: J69.0 Pneumonitis due to inhalation of food and vomit (principal); J96.20 Acute and chronic respiratory failure, unspecified whether with hypoxia or hypercapnia; E44.1 Mild protein-calorie malnutrition; J20.9 Acute bronchitis, unspecified; A31.0 Pulmonary mycobacterial infection; D53.9 Nutritional anemia, unspecified; J98.09 Other diseases of bronchus, not elsewhere classified; E87.8 Other disorders of electrolyte and fluid balance, not elsewhere classified; E83.41 Hypermagnesemia; E78.5 Hyperlipidemia, unspecified; G71.11 Myotonic muscular dystrophy; R13.19 Other dysphagia; G80.9 Cerebral palsy, unspecified; Z68.24 Body mass index [BMI] 24.0-24.9, adult; I25.2 Old myocardial infarction; Z88.5 Allergy status to narcotic agent; Z88.0 Allergy status to penicillin; Z80.0 Family history of malignant neoplasm of digestive organs; Z83.6 Family history of other diseases of the respiratory system; Z79.899 Other long term (current) drug therapy; Z82.49 Family history of ischemic heart disease and other diseases of the circulatory system

== ENCOUNTER → 2019-04-30 | Outpatient (CLI) | payer OTHER ==
[~2019-04-30] MED LIST changes: +ALBUTEROL2.5 MG/0.5 INH; +BENZONATATE200 MG PO; +MUCINEX D ER 61 EACH PO
[2019-04-30 12:15] LABS: BASO # 0.1 10*3/uL (0.0-0.1); BASO % 0.8 % (0.0-1.0); EOS # 0.4 10*3/uL (0.0-0.4); EOS % 6.7 % (1.0-4.0); HEMATOCRIT 44.9 % (42.0-52.0); HEMOGLOBIN 13.9 g/dl (14.0-18.0); LYMPH # 1.5 10*3/uL (1.3-4.4); LYMPH % 23.1 % (27.0-41.0); MEAN CELL VOLUME 99.8 fl (80.0-94.0); MEAN CORPUSCULAR HGB 30.9 pg (27.0-31.0); MONO # 0.5 10*3/uL (0.1-1.0); MONO % 7.6 % (3.0-9.0); NEUT # 3.9 10*3/uL (2.3-7.9); NEUT % 61.6 % (47.0-73.0); PLATELET COUNT AUTOMATED 210 10*3/uL (130-400); RED CELL DISTRI WIDTH 14.2 % (0-14.5); WHITE BLOOD COUNT 6.3 10*3/uL (4.8-10.8)
[2019-04-30 12:35] LABS: ALBUMIN 3.2 gm/dl (3.1-4.5); BILIRUBIN, DIRECT < 0.1 mg/dL (0.0-0.2); SGOT/AST 52 IU/L (3-35)
[2019-04-30 12:36] LABS: ALKALINE PHOSPHATASE 88 U/L (45-117); SGPT/ALT 74 U/L (12-78); TOTAL PROTEIN 6.7 gm/dL (6.4-8.2)
== END | disposition home or self-care (01) ==
LOC: LAB 11:40
PROVIDERS: Internal Medicine Critical Care Medicine
DX: Z79.899 Other long term (current) drug therapy (principal)

== ENCOUNTER → 2019-05-16 | Outpatient (CLI) | payer OTHER ==
[2019-05-16 13:43] LABS: BASO # 0.1 10*3/uL (0.0-0.1); BASO % 0.9 % (0.0-1.0); EOS # 0.6 10*3/uL (0.0-0.4); EOS % 7.4 % (1.0-4.0); HEMATOCRIT 45.7 % (42.0-52.0); HEMOGLOBIN 14.7 g/dl (14.0-18.0); LYMPH # 1.7 10*3/uL (1.3-4.4); LYMPH % 21.7 % (27.0-41.0); MEAN CELL VOLUME 98.9 fl (80.0-94.0); MEAN CORPUSCULAR HGB 31.8 pg (27.0-31.0); MEAN CORPUSCULAR HGB CONC 32.2 g/dl (33.0-37.0); MEAN PLATELET VOLUME 10.5 fl (9.6-12.3); MONO # 0.5 10*3/uL (0.1-1.0); MONO % 6.5 % (3.0-9.0); NEUT # 4.9 10*3/uL (2.3-7.9); NEUT % 63.2 % (47.0-73.0); PLATELET COUNT AUTOMATED 180 10*3/uL (130-400); RED BLOOD COUNT 4.62 10*6/uL (4.50-5.90); RED CELL DISTRI WIDTH 13.7 % (0-14.5); WHITE BLOOD COUNT 7.7 10*3/uL (4.8-10.8)
[2019-05-16 13:58] LABS: ALBUMIN 3.1 gm/dl (3.1-4.5); ALKALINE PHOSPHATASE 98 U/L (45-117); BILIRUBIN, DIRECT < 0.1 mg/dL (0.0-0.2); SGOT/AST 26 IU/L (3-35); SGPT/ALT 41 U/L (12-78); TOTAL PROTEIN 6.8 gm/dL (6.4-8.2)
== END | disposition home or self-care (01) ==
LOC: LAB 12:53
PROVIDERS: Internal Medicine Critical Care Medicine
DX: Z79.899 Other long term (current) drug therapy (principal)

== ENCOUNTER → 2019-09-04 | Outpatient (CLI) | payer OTHER ==
[2019-09-04 08:35] LABS: BASO # 0.1 10*3/uL (0.0-0.1); BASO % 0.8 % (0.0-1.0); EOS # 0.5 10*3/uL (0.0-0.4); EOS % 6.7 % (1.0-4.0); HEMATOCRIT 43.3 % (42.0-52.0); LYMPH % 27.6 % (27.0-41.0); MEAN CELL VOLUME 97.1 fl (80.0-94.0); MEAN CORPUSCULAR HGB 31.2 pg (27.0-31.0); MEAN CORPUSCULAR HGB CONC 32.1 g/dl (33.0-37.0); MEAN PLATELET VOLUME 10.5 fl (9.6-12.3); MONO # 0.6 10*3/uL (0.1-1.0); MONO % 8.5 % (3.0-9.0); NEUT # 4.1 10*3/uL (2.3-7.9); NEUT % 56.1 % (47.0-73.0); PLATELET COUNT AUTOMATED 186 10*3/uL (130-400); RED BLOOD COUNT 4.46 10*6/uL (4.50-5.90); RED CELL DISTRI WIDTH 14.5 % (0-14.5); WHITE BLOOD COUNT 7.3 10*3/uL (4.8-10.8)
[2019-09-04 09:07] LABS: ALBUMIN 3.2 gm/dl (3.1-4.5); ALKALINE PHOSPHATASE 91 U/L (45-117); BILIRUBIN, DIRECT < 0.1 mg/dL (0.0-0.2); SGOT/AST 35 IU/L (3-35); SGPT/ALT 55 U/L (12-78); TOTAL PROTEIN 6.7 gm/dL (6.4-8.2)
== END | disposition home or self-care (01) ==
LOC: LAB 08:06
PROVIDERS: Internal Medicine Critical Care Medicine
DX: Z79.899 Other long term (current) drug therapy (principal)

== ENCOUNTER 2019-12-25 19:20 | Inpatient (IN) | payer OTHER ==
[~2019-12-25] VITALS: Ht 177.8 cm; Wt 73.2 kg
[2019-12-25 19:33] VITALS: BP 116/71
[2019-12-25 19:57] LABS: BASO % 0.1 % (0.0-1.0); EOS % 0.1 % (1.0-4.0); HEMATOCRIT 43.1 % (42.0-52.0); LYMPH # 0.9 10*3/uL (1.3-4.4); LYMPH % 13.2 % (27.0-41.0); MEAN CELL VOLUME 95.8 fl (80.0-94.0); MEAN CORPUSCULAR HGB 30.4 pg (27.0-31.0); MEAN CORPUSCULAR HGB CONC 31.8 g/dl (33.0-37.0); MEAN PLATELET VOLUME 9.6 fl (9.6-12.3); MONO # 0.5 10*3/uL (0.1-1.0); MONO % 6.5 % (3.0-9.0); NEUT # 5.5 10*3/uL (2.3-7.9); NEUT % 79.4 % (47.0-73.0); PLATELET COUNT AUTOMATED 174 10*3/uL (130-400); RED CELL DISTRI WIDTH 13.9 % (0-14.5)
[2019-12-25 20:13] LABS: ACT PARTIAL THROMBO TIME 26.2 SECONDS (20.0-32.1)
[2019-12-25 20:19] LABS: ALBUMIN 3.2 gm/dl (3.1-4.5); ALKALINE PHOSPHATASE 102 U/L (45-117); BUN 9 mg/dl (7-24); CHLORIDE 109 mmol/L (98-107); CREATININE 0.53 mg/dL (0.70-1.30); POTASSIUM 3.9 mmol/L (3.5-5.1); SGOT/AST 19 IU/L (3-35); SGPT/ALT 36 U/L (12-78); SODIUM 143 mmol/L (136-145)
[2019-12-25 20:28] LABS: TROPONIN I < 0.015 ng/ml (<0.045)
[2019-12-26 05:51] VITALS: BP 132/52
[2019-12-26 09:30] VITALS: BP 134/84
[2019-12-26 12:00] VITALS: BP 119/65
[2019-12-26 16:00] VITALS: BP 123/56
[2019-12-26 20:00] VITALS: BP 111/71
[2019-12-27 06:48] LABS: BASO % 0.3 % (0.0-1.0); EOS # 0.1 10*3/uL (0.0-0.4); EOS % 1.7 % (1.0-4.0); HEMATOCRIT 41.1 % (42.0-52.0); LYMPH # 1.8 10*3/uL (1.3-4.4); LYMPH % 25.9 % (27.0-41.0); MEAN CELL VOLUME 96.3 fl (80.0-94.0); MEAN CORPUSCULAR HGB CONC 31.1 g/dl (33.0-37.0); MEAN PLATELET VOLUME 9.6 fl (9.6-12.3); MONO # 0.6 10*3/uL (0.1-1.0); MONO % 8.6 % (3.0-9.0); NEUT # 4.5 10*3/uL (2.3-7.9); NEUT % 63.2 % (47.0-73.0); PLATELET COUNT AUTOMATED 148 10*3/uL (130-400); RED BLOOD COUNT 4.27 10*6/uL (4.50-5.90); RED CELL DISTRI WIDTH 14.1 % (0-14.5); WHITE BLOOD COUNT 7.1 10*3/uL (4.8-10.8)
[2019-12-27 07:07] LABS: ALBUMIN 2.9 gm/dl (3.1-4.5); ALKALINE PHOSPHATASE 87 U/L (45-117); BUN 9 mg/dl (7-24); CHLORIDE 113 mmol/L (98-107); CREATININE 0.32 mg/dL (0.70-1.30); POTASSIUM 3.3 mmol/L (3.5-5.1); SGOT/AST 17 IU/L (3-35); SGPT/ALT 26 U/L (12-78); SODIUM 145 mmol/L (136-145); TOTAL PROTEIN 6.1 gm/dL (6.4-8.2)
[2019-12-27 08:00] VITALS: BP 120/64
[2019-12-27 12:00] VITALS: BP 128/64
[2019-12-27 16:00] VITALS: BP 104/74
[2019-12-27 20:00] VITALS: BP 118/62
[2019-12-28] VITALS: BP 147/62
[2019-12-28 06:10] LABS: BASO % 0.4 % (0.0-1.0); EOS # 0.1 10*3/uL (0.0-0.4); EOS % 1.4 % (1.0-4.0); HEMATOCRIT 39.8 % (42.0-52.0); LYMPH # 1.1 10*3/uL (1.3-4.4); LYMPH % 14.5 % (27.0-41.0); MEAN CELL VOLUME 96.1 fl (80.0-94.0); MEAN CORPUSCULAR HGB 30.2 pg (27.0-31.0); MEAN CORPUSCULAR HGB CONC 31.4 g/dl (33.0-37.0); MEAN PLATELET VOLUME 9.4 fl (9.6-12.3); MONO # 0.7 10*3/uL (0.1-1.0); MONO % 8.6 % (3.0-9.0); NEUT # 5.8 10*3/uL (2.3-7.9); NEUT % 74.8 % (47.0-73.0); PLATELET COUNT AUTOMATED 142 10*3/uL (130-400); RED BLOOD COUNT 4.14 10*6/uL (4.50-5.90); RED CELL DISTRI WIDTH 13.9 % (0-14.5); WHITE BLOOD COUNT 7.8 10*3/uL (4.8-10.8)
[2019-12-28 06:30] LABS: BUN 8 mg/dl (7-24); CHLORIDE 110 mmol/L (98-107); CREATININE 0.28 mg/dL (0.70-1.30); POTASSIUM 3.1 mmol/L (3.5-5.1); SODIUM 146 mmol/L (136-145)
[2019-12-28 08:00] VITALS: BP 124/60
[2019-12-28 12:00] VITALS: BP 127/69
[2019-12-28 16:00] VITALS: BP 114/69
[2019-12-28 20:00] VITALS: BP 131/85
[2019-12-29] VITALS: BP 114/76
[2019-12-29 06:28] LABS: BASO % 0.1 % (0.0-1.0); EOS # 0.2 10*3/uL (0.0-0.4); HEMATOCRIT 41.8 % (42.0-52.0); LYMPH # 1.1 10*3/uL (1.3-4.4); LYMPH % 12.8 % (27.0-41.0); MEAN CORPUSCULAR HGB 30.2 pg (27.0-31.0); MEAN CORPUSCULAR HGB CONC 31.8 g/dl (33.0-37.0); MEAN PLATELET VOLUME 9.3 fl (9.6-12.3); MONO # 0.7 10*3/uL (0.1-1.0); MONO % 8.2 % (3.0-9.0); NEUT # 6.7 10*3/uL (2.3-7.9); NEUT % 76.6 % (47.0-73.0); PLATELET COUNT AUTOMATED 149 10*3/uL (130-400); RED CELL DISTRI WIDTH 13.6 % (0-14.5); WHITE BLOOD COUNT 8.8 10*3/uL (4.8-10.8)
[2019-12-29 06:37] LABS: BUN 8 mg/dl (7-24); CHLORIDE 108 mmol/L (98-107); POTASSIUM 3.1 mmol/L (3.5-5.1); SODIUM 143 mmol/L (136-145)
[2019-12-29 08:00] VITALS: BP 118/74
[2019-12-29 12:00] VITALS: BP 109/64
[2019-12-29 16:00] VITALS: BP 115/58
[2019-12-29 20:00] VITALS: BP 118/62
[2019-12-30] VITALS (9 sets, daily range): BP systolic 100–148; BP diastolic 61–96
[2019-12-30 06:33] LABS: BASO % 0.2 % (0.0-1.0); EOS # 0.5 10*3/uL (0.0-0.4); EOS % 4.9 % (1.0-4.0); HEMATOCRIT 42.1 % (42.0-52.0); LYMPH # 0.9 10*3/uL (1.3-4.4); LYMPH % 9.4 % (27.0-41.0); MEAN CELL VOLUME 93.3 fl (80.0-94.0); MEAN CORPUSCULAR HGB 30.8 pg (27.0-31.0); MEAN PLATELET VOLUME 9.8 fl (9.6-12.3); MONO # 0.9 10*3/uL (0.1-1.0); MONO % 9.2 % (3.0-9.0); NEUT # 7.5 10*3/uL (2.3-7.9); NEUT % 75.9 % (47.0-73.0); PLATELET COUNT AUTOMATED 142 10*3/uL (130-400); RED BLOOD COUNT 4.51 10*6/uL (4.50-5.90); WHITE BLOOD COUNT 9.9 10*3/uL (4.8-10.8)
[2019-12-30 06:39] LABS: BUN 10 mg/dl (7-24); CHLORIDE 106 mmol/L (98-107); CREATININE 0.35 mg/dL (0.70-1.30); POTASSIUM 3.7 mmol/L (3.5-5.1); SODIUM 141 mmol/L (136-145)
[2019-12-31] VITALS: BP 135/76
[2019-12-31 08:00] VITALS: BP 105/46
[2019-12-31 10:22] VITALS: BP 94/60
[2019-12-31 11:05] LABS: BASO % 0.2 % (0.0-1.0); EOS # 0.3 10*3/uL (0.0-0.4); EOS % 2.9 % (1.0-4.0); HEMATOCRIT 42.2 % (42.0-52.0); LYMPH # 0.9 10*3/uL (1.3-4.4); LYMPH % 8.2 % (27.0-41.0); MEAN CELL VOLUME 96.3 fl (80.0-94.0); MEAN CORPUSCULAR HGB 30.1 pg (27.0-31.0); MEAN CORPUSCULAR HGB CONC 31.3 g/dl (33.0-37.0); MONO # 0.8 10*3/uL (0.1-1.0); MONO % 7.2 % (3.0-9.0); NEUT # 9.1 10*3/uL (2.3-7.9); NEUT % 81.1 % (47.0-73.0); PLATELET COUNT AUTOMATED 175 10*3/uL (130-400); RED BLOOD COUNT 4.38 10*6/uL (4.50-5.90); RED CELL DISTRI WIDTH 14.1 % (0-14.5); WHITE BLOOD COUNT 11.3 10*3/uL (4.8-10.8)
[2019-12-31 11:38] LABS: ALBUMIN 2.6 gm/dl (3.1-4.5); ALKALINE PHOSPHATASE 82 U/L (45-117); BUN 11 mg/dl (7-24); CHLORIDE 106 mmol/L (98-107); CREATININE 0.39 mg/dL (0.70-1.30); POTASSIUM 3.8 mmol/L (3.5-5.1); SGOT/AST 13 IU/L (3-35); SGPT/ALT 17 U/L (12-78); SODIUM 142 mmol/L (136-145); TOTAL PROTEIN 6.5 gm/dL (6.4-8.2)
[2019-12-31 16:00] VITALS: BP 124/60
[2019-12-31 20:00] VITALS: BP 101/58
[2020-01-01] VITALS (9 sets, daily range): BP systolic 105–133; BP diastolic 54–69
[2020-01-02] VITALS: BP 121/67
[2020-01-02 08:00] VITALS: BP 125/78
[2020-01-02 11:10] LABS: ACID FAST SPEC PROCESSING Concentration (.)
[2020-01-02 12:00] VITALS: BP 127/65
[2020-01-02 16:00] VITALS: BP 118/86
[2020-01-02 20:00] VITALS: BP 114/58
[2020-01-03] VITALS: BP 117/64
[2020-01-03 08:00] VITALS: BP 122/67
[2020-01-03 12:00] VITALS: BP 106/59
[2020-01-03 13:30] VITALS: BP 114/67
[2020-01-03 15:41] VITALS: BP 153/84
[2020-01-03 16:39] LABS: ABG BASE EXCESS 5.5 mmol/L (-2.0-2.0); ARTERIAL BLOOD GAS PH 7.464 (7.35-7.45)
[2020-01-03 20:00] VITALS: BP 98/48
[2020-01-04] VITALS: BP 90/46
[2020-01-04 04:00] VITALS: BP 92/50
[2020-01-04 06:19] LABS: BASO % 0.4 % (0.0-1.0); EOS # 0.1 10*3/uL (0.0-0.4); EOS % 1.1 % (1.0-4.0); HEMATOCRIT 37.4 % (42.0-52.0); LYMPH # 1.1 10*3/uL (1.3-4.4); MEAN CELL VOLUME 99.2 fl (80.0-94.0); MEAN CORPUSCULAR HGB 30.8 pg (27.0-31.0); MEAN PLATELET VOLUME 10.8 fl (9.6-12.3); MONO # 1.1 10*3/uL (0.1-1.0); MONO % 12.3 % (3.0-9.0); NEUT # 6.7 10*3/uL (2.3-7.9); NEUT % 74.1 % (47.0-73.0); PLATELET COUNT AUTOMATED 227 10*3/uL (130-400); RED BLOOD COUNT 3.77 10*6/uL (4.50-5.90); RED CELL DISTRI WIDTH 14.6 % (0-14.5)
[2020-01-04 06:21] LABS: ALBUMIN 2.3 gm/dl (3.1-4.5); ALKALINE PHOSPHATASE 60 U/L (45-117); BUN 8 mg/dl (7-24); CHLORIDE 112 mmol/L (98-107); CREATININE 0.31 mg/dL (0.70-1.30); SGOT/AST 23 IU/L (3-35); SGPT/ALT 9 U/L (12-78); SODIUM 148 mmol/L (136-145); TOTAL PROTEIN 6.1 gm/dL (6.4-8.2)
[2020-01-04 08:00] VITALS: BP 102/54
[2020-01-04 08:29] LABS: ABG BASE EXCESS 4.6 mmol/L (-2.0-2.0); ARTERIAL BLOOD GAS PH 7.433 (7.35-7.45)
[2020-01-04 12:00] VITALS: BP 115/51
[2020-01-04 16:00] VITALS: BP 98/54
[2020-01-04 20:00] VITALS: BP 102/54
[2020-01-05] VITALS: BP 114/58
[2020-01-05 04:00] VITALS: BP 103/64
[2020-01-05 07:37] LABS: BASO % 0.4 % (0.0-1.0); EOS # 0.4 10*3/uL (0.0-0.4); EOS % 5.5 % (1.0-4.0); HEMATOCRIT 35.2 % (42.0-52.0); LYMPH % 13.9 % (27.0-41.0); MEAN CELL VOLUME 98.9 fl (80.0-94.0); MEAN CORPUSCULAR HGB 30.6 pg (27.0-31.0); MEAN PLATELET VOLUME 10.1 fl (9.6-12.3); MONO # 0.8 10*3/uL (0.1-1.0); MONO % 11.2 % (3.0-9.0); NEUT # 4.8 10*3/uL (2.3-7.9); NEUT % 68.4 % (47.0-73.0); PLATELET COUNT AUTOMATED 223 10*3/uL (130-400); RED BLOOD COUNT 3.56 10*6/uL (4.50-5.90); RED CELL DISTRI WIDTH 14.4 % (0-14.5)
[2020-01-05 07:50] LABS: ALBUMIN 2.1 gm/dl (3.1-4.5); ALKALINE PHOSPHATASE 65 U/L (45-117); BUN 9 mg/dl (7-24); CHLORIDE 111 mmol/L (98-107); CREATININE 0.22 mg/dL (0.70-1.30); POTASSIUM 3.9 mmol/L (3.5-5.1); SGOT/AST 39 IU/L (3-35); SGPT/ALT 13 U/L (12-78); SODIUM 148 mmol/L (136-145)
[2020-01-05 08:00] VITALS: BP 90/45
[2020-01-05 12:00] VITALS: BP 110/64
[2020-01-05 16:00] VITALS: BP 102/60; BP 116/68
[2020-01-05 20:00] VITALS: BP 110/63
[2020-01-06] VITALS: BP 112/64
[2020-01-06 04:00] VITALS: BP 118/61
[2020-01-06 06:09] LABS: BASO % 0.4 % (0.0-1.0); EOS # 0.4 10*3/uL (0.0-0.4); EOS % 5.5 % (1.0-4.0); HEMATOCRIT 38.2 % (42.0-52.0); LYMPH % 14.8 % (27.0-41.0); MEAN CELL VOLUME 97.4 fl (80.0-94.0); MEAN CORPUSCULAR HGB 29.8 pg (27.0-31.0); MEAN CORPUSCULAR HGB CONC 30.6 g/dl (33.0-37.0); MEAN PLATELET VOLUME 10.9 fl (9.6-12.3); MONO # 0.7 10*3/uL (0.1-1.0); MONO % 9.2 % (3.0-9.0); NEUT # 4.9 10*3/uL (2.3-7.9); NEUT % 69.8 % (47.0-73.0); PLATELET COUNT AUTOMATED 274 10*3/uL (130-400); RED BLOOD COUNT 3.92 10*6/uL (4.50-5.90); RED CELL DISTRI WIDTH 14.3 % (0-14.5); WHITE BLOOD COUNT 7.1 10*3/uL (4.8-10.8)
[2020-01-06 06:25] LABS: BUN 6 mg/dl (7-24); CHLORIDE 108 mmol/L (98-107); CREATININE 0.19 mg/dL (0.70-1.30); POTASSIUM 3.5 mmol/L (3.5-5.1); SODIUM 146 mmol/L (136-145)
[2020-01-06 08:00] VITALS: BP 105/49
[2020-01-06 12:00] VITALS: BP 113/59
[2020-01-06 12:35] LABS: ABG BASE EXCESS 8.6 mmol/L (-2.0-2.0); ARTERIAL BLOOD GAS PH 7.423 (7.35-7.45)
[2020-01-06 16:00] VITALS: BP 110/60
[2020-01-06 20:00] VITALS: BP 123/58
[2020-01-07] VITALS: BP 129/64
[2020-01-07 07:18] VITALS: BP 118/60
[2020-01-07] MEDS ORDERED: METOCLOPRAMIDE H5 M1 PO (08:50)
[2020-01-07] MEDS ORDERED: SEPTDS PO ×2 (08:50→12:35)
[2020-01-07 09:54] LABS: BUN 6 mg/dl (7-24); CHLORIDE 106 mmol/L (98-107); CREATININE 0.27 mg/dL (0.70-1.30); POTASSIUM 3.9 mmol/L (3.5-5.1); SODIUM 145 mmol/L (136-145)
[2020-02-17 11:10] LABS: ACID FAST CULTURE Negative (.)
== END 2020-01-07 14:57 | disposition home or self-care (01) | DRG 4 ==
LOC: ED 19:20 → 5E 23:43 → EDHOLD 23:43 → 5E 12-26 08:53 → ICCU 01-03 14:15
PROVIDERS: Emergency Medicine; Internal Medicine; Internal Medicine Critical Care Medicine; Internal Medicine Gastroenterology; Student in an Organized Health Care Education/Training Program; ADMIT Family Medicine; ATTEND Family Medicine
PROC: BD1BYZZ Fluoroscopy of Mouth/Oropharynx using Other Contrast (ICD-10-PCS; principal; 2019-12-27)
PROC: 0DH63UZ Insertion of Feeding Device into Stomach, Percutaneous Approach (ICD-10-PCS; 2019-12-30)
PROC: 0B928ZZ Drainage of Carina, Via Natural or Artificial Opening Endoscopic (ICD-10-PCS; 2020-01-01)
PROC: 0B998ZZ Drainage of Lingula Bronchus, Via Natural or Artificial Opening Endoscopic (ICD-10-PCS; 2020-01-01)
PROC: 0B968ZZ Drainage of Right Lower Lobe Bronchus, Via Natural or Artificial Opening Endoscopic (ICD-10-PCS; 2020-01-01)
PROC: 0B9B8ZZ Drainage of Left Lower Lobe Bronchus, Via Natural or Artificial Opening Endoscopic (ICD-10-PCS; 2020-01-01)
PROC: 0B918ZZ Drainage of Trachea, Via Natural or Artificial Opening Endoscopic (ICD-10-PCS; 2020-01-01)
PROC: 0B958ZZ Drainage of Right Middle Lobe Bronchus, Via Natural or Artificial Opening Endoscopic (ICD-10-PCS; 2020-01-01)
PROC: 0B938ZZ Drainage of Right Main Bronchus, Via Natural or Artificial Opening Endoscopic (ICD-10-PCS; 2020-01-01)
PROC: 0B978ZZ Drainage of Left Main Bronchus, Via Natural or Artificial Opening Endoscopic (ICD-10-PCS; 2020-01-01)
PROC: 0B988ZZ Drainage of Left Upper Lobe Bronchus, Via Natural or Artificial Opening Endoscopic (ICD-10-PCS; 2020-01-01)
PROC: 0B948ZZ Drainage of Right Upper Lobe Bronchus, Via Natural or Artificial Opening Endoscopic (ICD-10-PCS; 2020-01-01)
PROC: 0B110F4 Bypass Trachea to Cutaneous with Tracheostomy Device, Open Approach (ICD-10-PCS; 2020-01-03)
PROC: 5A1935Z Respiratory Ventilation, Less than 24 Consecutive Hours (ICD-10-PCS; 2020-01-04)
DX: A41.02 Sepsis due to Methicillin resistant Staphylococcus aureus (principal); J69.0 Pneumonitis due to inhalation of food and vomit; J96.01 Acute respiratory failure with hypoxia; E44.0 Moderate protein-calorie malnutrition; G71.11 Myotonic muscular dystrophy; R65.20 Severe sepsis without septic shock; D53.9 Nutritional anemia, unspecified; R13.19 Other dysphagia; Z20.828 Contact with and (suspected) exposure to other viral communicable diseases; E87.8 Other disorders of electrolyte and fluid balance, not elsewhere classified; R73.9 Hyperglycemia, unspecified; E83.41 Hypermagnesemia; J45.909 Unspecified asthma, uncomplicated; K29.70 Gastritis, unspecified, without bleeding; E04.9 Nontoxic goiter, unspecified; K31.89 Other diseases of stomach and duodenum; G71.00 Muscular dystrophy, unspecified; R13.10 Dysphagia, unspecified; Z68.23 Body mass index [BMI] 23.0-23.9, adult; Z88.0 Allergy status to penicillin; Z88.5 Allergy status to narcotic agent; Z80.0 Family history of malignant neoplasm of digestive organs; Z82.5 Family history of asthma and other chronic lower respiratory diseases; Z79.51 Long term (current) use of inhaled steroids; Z79.2 Long term (current) use of antibiotics; Z79.899 Other long term (current) drug therapy

== ENCOUNTER 2020-01-09 23:16 | Inpatient (IN) | payer OTHER ==
[~2020-01-09] VITALS: Ht 177.8 cm; Wt 74.4 kg
[~2020-01-09 23:16] MED LIST changes: +METOCLOPRAMIDE H5 M1 PO; +SEPTDS PO
[2020-01-09 23:17] VITALS: BP 176/110
--- NOTE | 2020-01-09 23:20 | NUR ---
Pt respirations were in the 40's upon arrival. EMS had pt on a 28% venti mask. I tried to pass a suction catheter and couldnt. Inner cannula removed and it was plugged with secretions. Pt then suctioned for a small amount of creamy secretions. Pt placed on 100% SHILO. SpO2 increased to 99%. Respirations decreased to 18. Pt looks more comfortable. Pt has a size 8 Shiley DCT. Inner cannula changed and replaced.
--- NOTE | 2020-01-09 23:21 | NUR ---
RESPIRATORY AT BEDSIDE.100% CONTINUOS AEROSOL TRACH MASK.O2 SAT 94%.
--- NOTE | 2020-01-09 23:29 | NUR ---
Pt FiO2 decreased to 50%
--- NOTE | 2020-01-09 23:31 | NUR ---
NEW TRACH CANNULA PLACED BY RESP. ON CONTINUOUS O2 AT 50% ON SHILO.
[2020-01-09 23:32] VITALS: BP 120/77
[2020-01-10] VITALS (11 sets, daily range): BP systolic 85–111; BP diastolic 52–65
--- NOTE | 2020-01-10 00:15 | NUR ---
CLEANED PT UP. CHANGED SHEETS. PUT PANTS IN BAG AND PUT PT. IN GOWN. APPLIED BRIEF.
--- NOTE | 2020-01-10 00:23 | NUR ---
PT. RESTING IN BED. RR EASY AND NON-LABORED, NO DISTRESS NOTED. AT BEDSIDE. CALL LIGHT IN REACH. WILL CONTINUE TO MONITOR.
--- NOTE | 2020-01-10 00:30 | NUR ---
SOFT SMALL BM NOTED. CLEANED AND CHANGED.
--- NOTE | 2020-01-10 00:57 | NUR ---
SUCTIONED PT. X2. THICK BLOOD-TINGED MUCOUS PRESENT.
[2020-01-10 01:37] LABS: BASO # 0.1 10*3/uL (0.0-0.1); BASO % 0.4 % (0.0-1.0); EOS # 0.2 10*3/uL (0.0-0.4); EOS % 1.6 % (1.0-4.0); HEMATOCRIT 42.9 % (42.0-52.0); LYMPH # 0.9 10*3/uL (1.3-4.4); LYMPH % 7.9 % (27.0-41.0); MEAN CELL VOLUME 101.7 fl (80.0-94.0); MEAN CORPUSCULAR HGB 29.6 pg (27.0-31.0); MEAN CORPUSCULAR HGB CONC 29.1 g/dl (33.0-37.0); MEAN PLATELET VOLUME 10.6 fl (9.6-12.3); MONO # 0.7 10*3/uL (0.1-1.0); NEUT # 9.5 10*3/uL (2.3-7.9); NEUT % 83.7 % (47.0-73.0); PLATELET COUNT AUTOMATED 319 10*3/uL (130-400); RED BLOOD COUNT 4.22 10*6/uL (4.50-5.90); WHITE BLOOD COUNT 11.4 10*3/uL (4.8-10.8)
[2020-01-10 01:54] LABS: ALBUMIN 2.7 gm/dl (3.1-4.5); ALKALINE PHOSPHATASE 90 U/L (45-117); BUN 12 mg/dl (7-24); CHLORIDE 105 mmol/L (98-107); CREATININE 0.46 mg/dL (0.70-1.30); POTASSIUM 4.6 mmol/L (3.5-5.1); SGOT/AST 26 IU/L (3-35); SGPT/ALT 21 U/L (12-78); SODIUM 144 mmol/L (136-145); TOTAL PROTEIN 7.1 gm/dL (6.4-8.2)
[2020-01-10 01:56] LABS: TROPONIN I 0.355 ng/ml (<0.045)
--- NOTE | 2020-01-10 03:01 | NUR ---
SUCTIONED PT. 2X. THICK BLOOD-TINGED MUCOUS PRESENT.
--- NOTE | 2020-01-10 03:30 | NUR ---
PT. RESTING IN BED WITH EYES CLOSED. RR EASY AND NON-LABORED. NO SIGNS OF DISTRESS. CALL LIGHT WITHIN REACH. AT BEDSIDE. WILL CONTINUE TO MONITOR.
--- NOTE | 2020-01-10 04:10 | NUR ---
LARGE LOOSE BM. CHANGED PT, APPLIED NEW BRIEF.
--- NOTE | 2020-01-10 05:00 | NUR ---
PT. RESTING IN BED WITH EYES CLOSED. RR EASY AND NON-LABORED, NO DISTRESS NOTED. IS THE POWER OF RESOURCE COORDINATOR AND CHANGED THE PTS. CODE STATUS FROM FULL CODE TO DNRCC.
[2020-01-10 05:57] LABS: BILIRUBIN Negative (Negative); BLOOD Negative (Negative); CLARITY Clear (Clear); COLOR Yellow (Yellow); GLUCOSE Negative (Negative); KETONE Negative (Negative); LEUKO ESTERASE Negative (Negative); NITRITE Negative (Negative); PH 7.5 (4.5-8.0); SPECIFIC GRAVITY 1.015 (1.001-1.030); UROBILINOGEN 0.2 E.U./dl (0.0-1.0)
[2020-01-10 06:10] LABS: BACTERIA 1+; CALCIUM OXALATE CRYSTALS 1+; EPITHELIAL CELLS 0-2; MUCOUS 1+; RBC 0-2 rbc/hpf (0-2)
--- NOTE | 2020-01-10 06:17 | NUR ---
SUCTIONED PT X2. THICK BLOOD-TINGED SECREATIONS NOTED.
--- NOTE | 2020-01-10 07:15 | NUR ---
REPORT RECEIVED FROM TAMELA NEUMANN.
--- NOTE | 2020-01-10 07:19 | NUR ---
TV HOST HAS A MESSAGE OUT TO [facility] TO SEE WHY THIS PATIENT HAS NOT BEEN SEEN BY THEM.
--- NOTE | 2020-01-10 07:50 | NUR ---
[facility] BEING HELD UNTIL 1000.
--- NOTE | 2020-01-10 08:05 | NUR ---
A 59, admitted to , under the services of LEE ANN Carbajal DO with a diagnosis of NSTEMI, PNEUMONIA. Chief complaint is SOB. Patient arrived via stretcher from ER. Monitor applied. Initial assessment completed. Vital signs taken and recorded. LEE ANN CARBAJAL DO notified of admission to the unit. Orders received. See assessment for past medical history, medications and allergies. Patient and/or family oriented to unit. [address] visitation policy reviewed. Clothing/patient valuable form completed. TRISH GONZALEZ
--- NOTE | 2020-01-10 09:23 | NUR ---
Received call from mother, Annmarie Ramirez. She can be reached out [phone] if needed. She states "Wendy ([facility]) called me at 0430 this morning as the ED asked Allan if he wanted to be transferred to [place] or [place] and he told them he has had enough and didn't want to be transferred." She states his dad had muscular dystrophy and in the weeks prior to his passing they had spoke about what he wanted and what he didn't want to do if he needed to be resuscitated but never had anything written. She states they did resuscitate his father and she is concerned that her son will be resuscitated too and per her patient doesn't want any further heroic measures.
--- NOTE | 2020-01-10 09:28 | NUR ---
HENRIETTA REACHED OUT TO LULI. DATA COLLECTION SPECIALIST ASKED HER TO BRING IN A COPY OF THE [facility] FOR OUR RECORDS. SHE STATED SHE WOULD SHE KEEPS THEM IN HER PURSE. SHE STATED SHE IS WANTING TO TAKE THE PATIENT HOME TODAY WITH [facility]. HENRIETTA INFORMED CATH LABORATORY TECHNICIAN MARGARITO.
--- NOTE | 2020-01-10 09:44 | NUR ---
AUTOMATIC STEEL TIE ADJUSTER FAXED REFERRAL TO [facility] FOR REVIEW.
--- NOTE | 2020-01-10 09:51 | NUR ---
contacted dr. Dasilva office for a consult.
--- NOTE | 2020-01-10 09:55 | NUR ---
REVEIVED A CALL FROM THE PATIENT'S MOTHER WHO STATED THAT HE SON WAS IN CRITICAL CONDITON PER THE PATIENT'S POA, AND SHE COULDNT UNDERSTAND WHY THE POA WASNT ALLOWED TO VISIT. I EXPLAINED THAT HE WAS IN STABLE CONDITON AT THIS TIME, AND THE NURSING SURVEYING TECHNICIAN JONATHAN ALSO AGREED AT THIS TIME THAT HIS CONDITON DID NOT WARRENT VISITATION.
--- NOTE | 2020-01-10 10:50 | NUR ---
PHYSICAL THERAPY PT eval received pt admit with respiratory distress/pnumonia,elevated troponins w NSTEMI cardiolgoy recomending transfer for heart cath but family declining.Pt recently discharged 01/07 with PEG placment and Trach to home and readmitted as above. Per medical meeting this AM code status now DNR w CC and family looking at home with hospice. Will defer therapy at this time for possible discharge today with hospice care. Amira Burton PT
--- NOTE | 2020-01-10 11:00 | NUR ---
PT'S MOTHER INFORMED OF PT'S STABLE CONDITION BY TAMELA GONZALEZ.
--- NOTE | 2020-01-10 11:23 | NUR ---
Occupational Therapy orders received and chart was reviewed. Patient admitted with SOB. Per rounding meeting patient is d/c home today with hospice. If plan changes please re-send orders. Thank you for referral. Lacey Wallace OTR/L
--- NOTE | 2020-01-10 12:20 | NUR ---
PROCESS PUMPER AWARE OF POA'S INSISTANCE TO COME INTO THE HOSPITAL AFTER BEING INFORMED BY THE RN THAT THE PT IS STABLE AND DOING WELL.
--- NOTE | 2020-01-10 12:52 | NUR ---
HOSE TENDER RECEIVED CALL FROM [facility]/HOSPICE. SHE STATED PATIENTS POA IS COMING IN AT 1:30PM TO SPEAK WITH THE DOCTORS.
--- NOTE | 2020-01-10 13:53 | NUR ---
RECEIVED A CALL FROM DR. ALMANZAR'S OFFICE, THEY STATED THAT THE PATIENT'S POA CALLED AND TOLD THEM THAT "RITA CODED LAST NIGHT IN THE ER." PER THE ER DOCTORS HPI WHICH STATED THAT A MALE WITH HX OF MUSCULAR DYSTROPHY WAS BROUGHT IN VIA AMBULANCE FOR RESPIRATORY DISTRESS. THE PT HAS NEW TRACH AND HAD LARGE AMOUNTS OF SECERETIONS THAT NEEDED TO BE SUCTIONED OUT ALONG WITH A NEW PNEUMONIA THAT NEEDED TO BE TREATED. NO CODE WAS EVER CALLED.
--- NOTE | 2020-01-10 14:45 | NUR ---
CONTACTED THE RESIDENT WORKING FOR DR. WISE, STATED THAT WE NEED TO LOOK AT REMOVING THE SUTURES THAT WERE PLACED WHEN THE TRACH WAS INSERTED, ALSO I MENTIONED THAT WE MAY NEED BACTROBAN TO APPLY TOPICALLY. ADDITIONALLY, WE DISCUSSED THE NEED FOR A PEG TUBE FEED ORDER AND WE DO NOT HAVE ONE AT THIS TIME. PT REFUSED HOSPICE CARE FROM KEAGAN THE SOCAIL WORKER AT THE HOSPITAL.
--- NOTE | 2020-01-10 14:46 | NUR ---
CONTROL SYSTEMS DRAFTING OFFICER SPOKE WITH PATIENTS RNs VENKAT AND LONG. CONTROL SYSTEMS DRAFTING OFFICER SPOKE WITH THE PATIENT. PATIENT RESPONDED WITH EITHER A YES OR NO NOD. CONTROL SYSTEMS DRAFTING OFFICER AKSED THE PATIENT IF HE WAS INTERESTED IN AN EXTENTION OF [facility]OS[facility]. PATIENT NODDED NO. CONTROL SYSTEMS DRAFTING OFFICER ASKED IF THE PATIENT WOULD LIKE TO GO TO A SNF. PATIENT NODDED NO. CONTROL SYSTEMS DRAFTING OFFICER ASKED IF THE PATIENT SIGNIFICANT OTHER LULI WAS TAKING GOOD CARE OF HIM. PATIENT NODDED YES. CONTROL SYSTEMS DRAFTING OFFICER ASKED THE PATIENT IF HE WANTED TO RETURN HOME WITH LULI. PATIENT NODDED YES. CONTROL SYSTEMS DRAFTING OFFICER NOTIFIED [facility] OF THE PATIENT NOT WANTING HOSPICE SERVICES AT THIS TIME BUT WILL RESUME HIS HOME HEALTH WHEN DISCHARGED. PATIENTS RNs ARE AWARE.
--- NOTE | 2020-01-10 15:11 | NUR ---
REST ROOM ATTENDANT SPOKE WITH [facility]. THEY DO NOT HAVE A MEETING SET UP WITH THE PATIENT OR WITH THE POA.
--- NOTE | 2020-01-10 15:16 | NUR ---
Nutritional Support Services Note: Pt s/p aspiration, s/p trach, s/p Peg tube. Dx of muscular dystrophy. He was recently admitted with pnemonia. Ht.5'10 Wt.164# IBW 166# He requires approx. 1800cal daily to maintain current wt. Recommend Jevity 1.2 @ 65cc/hr. TF will provide pt with 1872cal daily. TF will provide pt with 1400cc of fluid daily, he requires approximately 2200cc of fluid daily. Pt needs an additional 800cc of fluid flushes daily. Will follow as needed. Michaela English Rdn Ld
--- NOTE | 2020-01-10 15:30 | NUR ---
MARGARITO FROM [facility] CALLED TO CLARIFY THAT PT REFUSED HOSPICE CARE TO KEAGAN FROM CASE [facility]. SHE STATES THAT LULI HAS BEEN CALLING STATING THEY SHOULD HAVE BEEN IN HOSPITAL TO MEET WITH HER, MARGARITO STATES A MEETING WAS NEVER ESTABLISHED, AND THAT ON MONDAY THEY HAD G[facility], AND WAITED FOR 2HRS WITH NO RESPONSE/NO ONE WAS HOME.
--- NOTE | 2020-01-10 15:34 | NUR ---
HENRIETTA RECEIVED PHONE CALL FROM PATIENTS SIGNIFICANT OTHER. SHE STATED THAT SHE WAS TOLD THE PATIENT WOULD BE PASSING SOON AND THAT THERE IS A NEED FOR HOSPICE. SHE STATED THAT NO ONE TAUGHT HER HOW TO SUCTION THE PATIENT THE PATIENT RESULTING IN THIS PATIENTS TRACH BECOMING PLUGGED. LULI STATED THAT SHE DID NOT UNDERSTAND WHY THE PATIENT WAS BEING KEPT HERE AND RELEASED TO GO HOME WITH HOSPICE SERVICES. IP COUNSEL ATTEMPTED TO EXPLAIN TO HER THAT THE PATIENT IS STABLE AND WHEN HE WAS ASKED IF HE WANTED HOSPICES SERVICES HE REFUSED THEM. SHE IS ALSO UPSET THAT SHE WAS ALLOWED TO VISIT HIM DURING HIS LAST ADMISSION BUT NOT THIS ADMISSION. IP COUNSEL EXPLAINED THAT HE IS STABLE AND IT IS UP TO THE RN SUPERVISIOR. LULI STATED THAT SHE IS STILL INTERESTED IN HOSPICE SERVICES AND WILL BE REACHING BACK OUT TO [facility]. SHE REQUESTED THAT A DOCTOR CALL HER. HENRIETTA SPOKE WITH DR. LUCA Blackman WHO STATED THAT HE WOULD REACH OUT TO HER.
--- NOTE | 2020-01-10 16:15 | NUR ---
SPOKE WITH THE PATIENT'S MOTHER AGAIN, SHE THIS TIME WANTED TO KNOW WHY HE WAS IN THE HOSPITAL. I EXPLAINED THE PATIENT'S CONDITION AND CURRENT ILLNESS.
--- NOTE | 2020-01-10 17:00 | NUR ---
BOTTOM TRACH SUTURES REMOVED PER DR WISE WHILE HE WAS AT THE BEDSIDE. HE EXAMAINED THE SITE.
--- NOTE | 2020-01-10 17:02 | NUR ---
THE PATIENT'S MOTHER CALLED IN AGAIN TO STATE THAT SHE IS THE PATIEN'S POA UNLESS LULI HAS WENT AND MADE HERSELF THE POA. THE MOTHER IS STILL CONFUSED TO THE PT'S CONDITION, I ASSURED HER THAT THE PATIENT WAS IN STABLE CONDITON AT THIS TIME.
--- NOTE | 2020-01-10 17:30 | NUR ---
PT INFORMED THAT HIS MOTHER CALLED IN CONCERNED ABOUT HIM. HE SMILED AND REMAINS IN A GOOD MOOD AND ORIENTED, CAPABLE OF MAKING HIS OWN DECISIONS.
--- NOTE | 2020-01-10 22:54 | NUR ---
PT SXN FOR MODERATE AMT OF THICK CLEAR/BLOODY SECRETIONS. TOLERATED WELL. NO DISTRESS. PLACED BACK ON 50% SHILO
[2020-01-11] VITALS: BP 102/55
[2020-01-11 08:00] VITALS: BP 106/64
--- NOTE | 2020-01-11 09:48 | NUR ---
Equine Dentist in to talk to patient. Patient states lives at HOME with SIGNIFICANT OTHER/LULI. There are 0 steps in the home. Physician: Pharmacy: Home health services: [facility] Patient's level of ADLs: MODERATE ASSIST Patient has working utilities: YES DME: WC/HOSPITAL BED/OXYGEN/TRACH SUCTION MACH/PEG TUBE & FEEDING Follow-up physician's appointment after d/c: [facility]OSPITAL[facility] Does patient want to access PORTAL?: NO Discharge plan Patient comes in from home where he was just discharged from here 2 days ago with [facility]. Patient currently lives with a long time caregiver, Luli. Discharge plan is undecided at this time. \. HALEIGH FALK
[2020-01-11 09:56] LABS: BUN 6 mg/dl (7-24); CHLORIDE 109 mmol/L (98-107); CREATININE 0.25 mg/dL (0.70-1.30); POTASSIUM 4.4 mmol/L (3.5-5.1); SODIUM 144 mmol/L (136-145)
[2020-01-11 11:17] LABS: BASO % 0.6 % (0.0-1.0); EOS # 0.3 10*3/uL (0.0-0.4); EOS % 4.9 % (1.0-4.0); HEMATOCRIT 36.6 % (42.0-52.0); LYMPH # 1.3 10*3/uL (1.3-4.4); MEAN CELL VOLUME 99.2 fl (80.0-94.0); MEAN CORPUSCULAR HGB 30.4 pg (27.0-31.0); MEAN CORPUSCULAR HGB CONC 30.6 g/dl (33.0-37.0); MONO # 0.5 10*3/uL (0.1-1.0); MONO % 8.5 % (3.0-9.0); NEUT # 4.1 10*3/uL (2.3-7.9); NEUT % 64.7 % (47.0-73.0); PLATELET COUNT AUTOMATED 322 10*3/uL (130-400); RED BLOOD COUNT 3.69 10*6/uL (4.50-5.90); RED CELL DISTRI WIDTH 14.1 % (0-14.5); WHITE BLOOD COUNT 6.3 10*3/uL (4.8-10.8)
[2020-01-11 13:00] VITALS: BP 104/72
--- NOTE | 2020-01-11 14:41 | NUR ---
PRN TYLENOL GIVEN FOR C/O OF HEADACHE
--- NOTE | 2020-01-11 15:10 | NUR ---
PER PT TYLENOL EFFECTIVE
[2020-01-11 16:00] VITALS: BP 100/55
--- NOTE | 2020-01-11 19:10 | NUR ---
REPORT RECEIVED.PT LYING IN BED WITH EYES CLOSED. PEG RUNNING WITHOUT DIFFICULTY. NO S/S OF DISTRESS NOTED. CALL LIGHT IN REACH
[2020-01-11 20:00] VITALS: BP 104/51
--- NOTE | 2020-01-11 21:00 | NUR ---
IN TO SEE PT. PEG INTACT. AIR BOLUS ASCULTATED. 0 RESIDUAL. PT TOLERATED MEDICATIONS WELL. PEG RUNNING AGAIN AT THIS TIME.
[2020-01-12] VITALS: BP 107/51
--- NOTE | 2020-01-12 01:00 | NUR ---
PT REPOSITIONED, CHANGED AND SUCTIONED AT THIS TIME. PT TOLERATED WELL
--- NOTE | 2020-01-12 03:34 | NUR ---
PT SUCTIONED PER REQUEST AT THIS TIME.
--- NOTE | 2020-01-12 05:00 | NUR ---
PT SUCTIONED PER REQUEST AT THIS TIME. NO COMPLAINTS, TOLERATED WELL
--- NOTE | 2020-01-12 07:05 | NUR ---
PT SUCTIONED AT THIS TIME PER REQUEST
--- NOTE | 2020-01-12 07:23 | NUR ---
24 HR chart check completed.
[2020-01-12 07:34] LABS: BASO % 0.7 % (0.0-1.0); EOS # 0.2 10*3/uL (0.0-0.4); EOS % 3.9 % (1.0-4.0); HEMATOCRIT 34.8 % (42.0-52.0); LYMPH # 1.2 10*3/uL (1.3-4.4); MEAN CELL VOLUME 96.9 fl (80.0-94.0); MEAN CORPUSCULAR HGB 29.8 pg (27.0-31.0); MEAN CORPUSCULAR HGB CONC 30.7 g/dl (33.0-37.0); MEAN PLATELET VOLUME 10.2 fl (9.6-12.3); MONO # 0.7 10*3/uL (0.1-1.0); NEUT # 3.2 10*3/uL (2.3-7.9); PLATELET COUNT AUTOMATED 299 10*3/uL (130-400); RED BLOOD COUNT 3.59 10*6/uL (4.50-5.90); RED CELL DISTRI WIDTH 13.8 % (0-14.5); WHITE BLOOD COUNT 5.4 10*3/uL (4.8-10.8)
[2020-01-12 07:56] LABS: BUN 7 mg/dl (7-24); CHLORIDE 112 mmol/L (98-107); CREATININE 0.29 mg/dL (0.70-1.30); POTASSIUM 3.9 mmol/L (3.5-5.1); SODIUM 145 mmol/L (136-145)
[2020-01-12 08:00] VITALS: BP 106/57
--- NOTE | 2020-01-12 08:00 | NUR ---
AWAKE, RESTING WITH HOB ELEVATED. RESPIRATIONS EASY. LUNGS DIMINISHED WITH RHONCHI. PULSE OX 97% ON O2 8L VIA TRACH MASK. SUCTIONED VIA TRACH PER PATIENT REQUEST. PEG TUBE PATENT AND INTACT, PLACEMENT VERIFIED VIA AIR BOLUS 20 CC RESIDUAL NOTED. FLUSHED WITH 200 CC H20. FEEDING MAINTAINED. IV FLUIDS INFUSING PER ORDER. CALL LIGHT WITHIN REACH. BED ALARM MAINTAINED
[2020-01-12] MEDS ORDERED: VIT D PO (08:26)
[2020-01-12] MEDS ORDERED: METOCLOPRAMIDE H5 M1 PO (08:27)
--- NOTE | 2020-01-12 11:30 | NUR ---
TRACH CARE GIVEN, INNER CANNULA CLEANED AND GAUZE REPLACED AROUND TRACH. TRACH WAS SUCTIONED EARLIER FOR LARGE THICK AMOUNT OF SECRETIONS. LAVAGED TRACH FOR THICKNESS OF SECRETIONS
[2020-01-12 12:00] VITALS: BP 110/45
--- NOTE | 2020-01-12 12:00 | NUR ---
REPEATEDLY REQUESTING TO BE SUCTIONED. SUCTIONED PER POLICY
--- NOTE | 2020-01-12 13:46 | NUR ---
MEDICATED WITH TYLENOL VIA PEG PER PRN ORDER FOR COMPLAINTS OF HEADACHE, PATIENT UNABLE TO RATE. WILL MONITOR
--- NOTE | 2020-01-12 14:00 | NUR ---
60+ CC RESIDUAL NOTED. FEEDING PLACED ON HOLD.
--- NOTE | 2020-01-12 14:30 | NUR ---
MEDS APPEAR EFFECTIVE. RESTING WITH EYES CLOSED.
--- NOTE | 2020-01-12 15:00 | NUR ---
SPOKE WITH BOTH PATIENT'S MOTHER AND GIRL-FRIEND. BOTH CLAIMING TO BE POA. GIRLFRIEND REQUESTING NO VISITORS OTHER THAN HERSELF, EXPLAINED NO VISITORS ARE PERMITTED. MESSAGE SENT TO SS
[2020-01-12 16:00] VITALS: BP 112/72
--- NOTE | 2020-01-12 18:00 | NUR ---
PEG TUBE FLUSHED, NO RESIDUAL NOTED. FEEDING RESUMED.
--- NOTE | 2020-01-12 18:50 | NUR ---
Pt lavaged and suctioned for a scant amount of clear secretions. Stoma cleaned and dressing applied. Site is reddened with sutures still in place. Water bottled changed, water bag drained. SPO2 on 28% SHILO - 97%. Size 8 Shiley. Inner cannula checked and cleaned.
[2020-01-12 20:00] VITALS: BP 122/68
--- NOTE | 2020-01-12 22:00 | NUR ---
PT PEG TUBE CHECKED, RESIDUAL CHECKED. 100CC PULLED AND RETURNED. PEG FEEDING CHANGED.
[2020-01-13] VITALS: BP 119/63
--- NOTE | 2020-01-13 04:00 | NUR ---
RESIDUAL CHECKED FOR PEG TUBE FEEDINGS 60CC WERE PULLED AND RETURNED.
--- NOTE | 2020-01-13 04:45 | NUR ---
24 HR chart check completed.
[2020-01-13 05:58] LABS: BUN 6 mg/dl (7-24); CHLORIDE 109 mmol/L (98-107); CREATININE 0.31 mg/dL (0.70-1.30); POTASSIUM 3.8 mmol/L (3.5-5.1); SODIUM 147 mmol/L (136-145)
[2020-01-13 06:07] LABS: BASO # 0.1 10*3/uL (0.0-0.1); BASO % 0.6 % (0.0-1.0); EOS # 0.3 10*3/uL (0.0-0.4); EOS % 2.9 % (1.0-4.0); HEMATOCRIT 37.2 % (42.0-52.0); LYMPH # 1.3 10*3/uL (1.3-4.4); LYMPH % 14.1 % (27.0-41.0); MEAN CELL VOLUME 98.2 fl (80.0-94.0); MEAN CORPUSCULAR HGB 30.6 pg (27.0-31.0); MEAN CORPUSCULAR HGB CONC 31.2 g/dl (33.0-37.0); MEAN PLATELET VOLUME 10.9 fl (9.6-12.3); MONO # 0.8 10*3/uL (0.1-1.0); MONO % 8.9 % (3.0-9.0); NEUT # 6.5 10*3/uL (2.3-7.9); NEUT % 73.3 % (47.0-73.0); PLATELET COUNT AUTOMATED 319 10*3/uL (130-400); RED BLOOD COUNT 3.79 10*6/uL (4.50-5.90); WHITE BLOOD COUNT 8.9 10*3/uL (4.8-10.8)
--- NOTE | 2020-01-13 07:15 | NUR ---
TRACH CARE GIVEN. LAVAGED AND SUCTIONED LARGE THICK SPUTUM. CLEANED INNER CANNULA AND PLACED CLEAN GAUZE AROUND TRACH AREA. PT TOLERATED WELL. PT IS STILL RED AROUND SITE OF STITCHES.
[2020-01-13 08:00] VITALS: BP 120/65
--- NOTE | 2020-01-13 09:00 | NUR ---
case management received a call from Wendy, patient's caregiver regarding patient's condition. Wendy stated she was unaware of patient's condition and whether he would be able to return home. case management informed her that patient has improved and he is a possible discharge today. discussed with her patient going to a short term care home prior to returning home. educated her that patient will have 24 hour care to maintain the new trach and new peg. caregiver declined, she stated patient would return home with her. educated her that [facility] will follow with patient, case management will notify [facility] when patient is discharged. also educated caregiver that the trach and peg tube need cleaned and maintaind on a daily basis. she stated her trach supplies are being delivered today. case management will follow
--- NOTE | 2020-01-13 11:00 | NUR ---
case management called patient's caregiver Wendy to inform her that patient will be discharged to home today. discussed with her an ambulance to bring him home and she didn't have a preference. site planner will make transportation arrangements and notify caregiver of the time
[2020-01-13 12:00] VITALS: BP 112/65
--- NOTE | 2020-01-13 12:09 | NUR ---
case management received a call from Danielle García life insurance agent. she stated she was patient's home home health care case manager and had some concerns after talking with the caregiver Wendy. Raquel stated Wendy told her she did not have any instruction prior to patient being discharge home. and that she was not allowed in the hospital to visit with patient. case management made Raquel aware that Wendy was allowed in the hospital and visited patient on a daily basis. Wendy was instructed by the ICu nurses on a daily basis of care of the trach, including removing the inner cannula and site care, and also care of the peg including feedings and care of the peg site. the ICU nurses requested return demonstration from Wendy and she was able to perform all of the care on the trach and the peg. [facility] health was set up and Wendy stated no one came to help her. educated Raquel that geriatric social work professor spoke with home health and they visited patient on Monday, day after discharge, and were in patient's home from 8am to 10am. Raquel stated she was going to call Wendy again and discuss these issues with her. Raquel also stated that throught the insurance company patient is eligible for aid service 4 hours a day, but prior to this Wendy has denied their services. Raquel stated she is going to reach out to Wendy again and discuss some of these concern and she will schedule the aids to starting seeing patient. Raquel will call case management again if anything else for patient is needed he home health did not visit patient. educated Raquel that
--- NOTE | 2020-01-13 12:36 | NUR ---
[facility] WOULD LIKE TO BE NOTIFIED WHEN THE PATIENT IS DISCHARGED AND WHEN IT IS SET UP.
[2020-01-13] MEDS ORDERED: ATORVASTATIN CA20 M1 PO (15:03)
--- NOTE | 2020-01-13 15:29 | NUR ---
case management contacted [facility], spoke to Sheyla. Educated her that patient will be discharged to home. Sheyla stated all paper work was received
--- NOTE | 2020-01-13 15:33 | NUR ---
TRANSPORTATION HOME SET UP WITH [facility]. THEY WILL BE HERE WITHIN NEXT HOUR TO TRANSPORT PT HOME. NATALYA PEDRO ON 4E NOTIFIED. LULI PT SLAB PULLER NOTIFIED.
--- NOTE | 2020-01-13 15:57 | NUR ---
PT REFUSING TO TURN ON SIDE FOR PICS/MEASUREMENTS OF BUTTOCK FOR DISCHARGE. ALSO STATES THAT HIS TRACH IS SORE AND DOES NOT WANT IT BOTHERED WITH FOR PICS/MEASUREMENTS AT THIS TIME. REFUSED PICS/MEASUREMENTS FOR DISCHARGE.
[2020-01-13 16:00] VITALS: BP 100/53
--- NOTE | 2020-01-13 17:04 | NUR ---
Discharge instructions reviewed with patient/family. Patient receptive and verbalizes understanding. Follow-up care arranged. Written instructions given to patient/family. CARLOTTA SERNA
== END 2020-01-13 17:04 | disposition home or self-care (01) | DRG 871 ==
LOC: ED 23:16 → 4E 01-10 05:08 → EDHOLD 01-10 05:08 → 4E 01-10 07:51
PROVIDERS: Emergency Medicine; Internal Medicine; ADMIT Family Medicine; ATTEND Family Medicine
PROC: 0B21XFZ Change Tracheostomy Device in Trachea, External Approach (ICD-10-PCS; principal; 2020-01-10)
DX: A41.9 Sepsis, unspecified organism (principal); J18.9 Pneumonia, unspecified organism; I21.4 Non-ST elevation (NSTEMI) myocardial infarction; E43 Unspecified severe protein-calorie malnutrition; J96.20 Acute and chronic respiratory failure, unspecified whether with hypoxia or hypercapnia; E87.2 Acidosis; A31.0 Pulmonary mycobacterial infection; J95.03 Malfunction of tracheostomy stoma; Z66 Do not resuscitate; R65.20 Severe sepsis without septic shock; Z51.5 Encounter for palliative care; G71.00 Muscular dystrophy, unspecified; D53.9 Nutritional anemia, unspecified; R13.19 Other dysphagia; E78.5 Hyperlipidemia, unspecified; G71.11 Myotonic muscular dystrophy; Y82.8 Other medical devices associated with adverse incidents; I95.9 Hypotension, unspecified; Y83.8 Other surgical procedures as the cause of abnormal reaction of the patient, or of later complication, without mention of misadventure at the time of the procedure; Z88.0 Allergy status to penicillin; Z88.5 Allergy status to narcotic agent; Z80.0 Family history of malignant neoplasm of digestive organs; Z82.5 Family history of asthma and other chronic lower respiratory diseases; I25.2 Old myocardial infarction; Z79.51 Long term (current) use of inhaled steroids; Z79.899 Other long term (current) drug therapy; Z68.23 Body mass index [BMI] 23.0-23.9, adult

== ENCOUNTER 2020-07-14 14:19 | Emergency (ER) | payer OTHER ==
[~2020-07-14] VITALS: Ht 167.6 cm; Wt 68.0 kg
[~2020-07-14 14:19] MED LIST changes: +ATORVASTATIN CA20 M1 PO; +VIT D PO
[2020-07-14 15:16] LABS: BASO % 0.4 % (0.0-1.0); EOS # 0.1 10*3/uL (0.0-0.4); EOS % 1.9 % (1.0-4.0); HEMATOCRIT 40.4 % (42.0-52.0); LYMPH # 2.3 10*3/uL (1.3-4.4); LYMPH % 32.5 % (27.0-41.0); MEAN CELL VOLUME 98.8 fl (80.0-94.0); MEAN CORPUSCULAR HGB 31.3 pg (27.0-31.0); MEAN CORPUSCULAR HGB CONC 31.7 g/dl (33.0-37.0); MEAN PLATELET VOLUME 10.8 fl (9.6-12.3); MONO # 0.7 10*3/uL (0.1-1.0); MONO % 10.4 % (3.0-9.0); NEUT # 3.8 10*3/uL (2.3-7.9); NEUT % 54.5 % (47.0-73.0); PLATELET COUNT AUTOMATED 216 10*3/uL (130-400); RED BLOOD COUNT 4.09 10*6/uL (4.50-5.90); RED CELL DISTRI WIDTH 13.3 % (0-14.5); WHITE BLOOD COUNT 6.9 10*3/uL (4.8-10.8)
[2020-07-14 15:32] LABS: ALBUMIN 3.2 gm/dl (3.1-4.5); ALKALINE PHOSPHATASE 93 U/L (45-117); BUN 18 mg/dl (7-24); CHLORIDE 108 mmol/L (98-107); POTASSIUM 4.1 mmol/L (3.5-5.1); SGOT/AST 80 IU/L (3-35); SGPT/ALT 138 U/L (12-78); SODIUM 142 mmol/L (136-145); TOTAL PROTEIN 7.1 gm/dL (6.4-8.2)
[2020-07-14 15:39] LABS: TROPONIN I < 0.015 ng/ml (<0.045)
[2020-07-14] MEDS ORDERED: PERCOCET 7.5-31 EACH PO (16:25)
== END 2020-07-14 16:38 | disposition home or self-care (01) ==
LOC: ED 14:19
PROVIDERS: Student in an Organized Health Care Education/Training Program
DX: R07.89 Other chest pain (principal); Z90.89 Acquired absence of other organs; Z79.899 Other long term (current) drug therapy; Z88.0 Allergy status to penicillin; Z88.5 Allergy status to narcotic agent

== ENCOUNTER → 2020-07-27 | Day surgery (SDC) | payer OTHER ==
[~2020-07-27] MED LIST changes: +PERCOCET 7.5-31 EACH PO
[2020-07-27 13:00] VITALS: BP 115/60
[2020-07-27 15:40] VITALS: BP 98/51
[2020-07-27 15:55] VITALS: BP 103/51
== END | disposition home or self-care (01) ==
LOC: SDC 07-24 08:45
PROVIDERS: ATTEND Surgery
DX: J95.03 Malfunction of tracheostomy stoma (principal); J45.909 Unspecified asthma, uncomplicated; Z79.899 Other long term (current) drug therapy

== ENCOUNTER 2020-07-31 19:15 | Emergency (ER) | payer OTHER ==
[~2020-07-31] VITALS: Wt 74.8 kg
[2020-07-31 19:44] LABS: BASO % 0.6 % (0.0-1.0); EOS # 0.1 10*3/uL (0.0-0.4); HEMATOCRIT 39.7 % (42.0-52.0); LYMPH # 1.9 10*3/uL (1.3-4.4); LYMPH % 30.5 % (27.0-41.0); MEAN CELL VOLUME 102.1 fl (80.0-94.0); MEAN CORPUSCULAR HGB 31.9 pg (27.0-31.0); MEAN CORPUSCULAR HGB CONC 31.2 g/dl (33.0-37.0); MEAN PLATELET VOLUME 11.3 fl (9.6-12.3); MONO # 0.8 10*3/uL (0.1-1.0); MONO % 12.8 % (3.0-9.0); NEUT # 3.4 10*3/uL (2.3-7.9); NEUT % 54.9 % (47.0-73.0); PLATELET COUNT AUTOMATED 181 10*3/uL (130-400); RED BLOOD COUNT 3.89 10*6/uL (4.50-5.90); RED CELL DISTRI WIDTH 14.2 % (0-14.5); WHITE BLOOD COUNT 6.2 10*3/uL (4.8-10.8)
[2020-07-31 20:01] LABS: ALBUMIN 2.8 gm/dl (3.1-4.5); ALKALINE PHOSPHATASE 97 U/L (45-117); BUN 15 mg/dl (7-24); CHLORIDE 108 mmol/L (98-107); CREATININE 0.36 mg/dL (0.70-1.30); POTASSIUM 3.7 mmol/L (3.5-5.1); SGOT/AST 42 IU/L (3-35); SGPT/ALT 174 U/L (12-78); SODIUM 142 mmol/L (136-145); TOTAL PROTEIN 6.5 gm/dL (6.4-8.2)
[2020-07-31 20:09] LABS: TROPONIN I < 0.015 ng/ml (<0.045)
== END 2020-07-31 22:17 | disposition home or self-care (01) ==
LOC: ED 19:15
PROVIDERS: Physician Assistant
DX: R07.9 Chest pain, unspecified (principal); Z88.0 Allergy status to penicillin; Z88.5 Allergy status to narcotic agent; Z79.899 Other long term (current) drug therapy; Z98.890 Other specified postprocedural states

== ENCOUNTER → 2020-10-02 | Outpatient (CLI) | payer OTHER ==
[~2020-10-02] MED LIST changes: +CETACAINE SPRAY20 GM PO; +LEVOFLOXACIN750 M2 PO
== END | disposition home or self-care (01) ==
LOC: RAD 11:38
PROVIDERS: ATTEND Family Medicine
DX: J98.4 Other disorders of lung (principal)

== ENCOUNTER 2020-11-12 08:48 | Emergency (ER) | payer OTHER ==
[~2020-11-12] VITALS: Ht 177.8 cm; Wt 63.5 kg
[2020-11-12 09:10] LABS: BASO # 0.1 10*3/uL (0.0-0.1); EOS # 0.3 10*3/uL (0.0-0.4); EOS % 3.9 % (1.0-4.0); HEMATOCRIT 44.5 % (42.0-52.0); LYMPH # 1.8 10*3/uL (1.3-4.4); LYMPH % 24.5 % (27.0-41.0); MEAN CELL VOLUME 98.7 fl (80.0-94.0); MEAN CORPUSCULAR HGB 31.7 pg (27.0-31.0); MEAN CORPUSCULAR HGB CONC 32.1 g/dl (33.0-37.0); MEAN PLATELET VOLUME 11.5 fl (9.6-12.3); MONO # 0.7 10*3/uL (0.1-1.0); MONO % 9.8 % (3.0-9.0); NEUT # 4.5 10*3/uL (2.3-7.9); NEUT % 60.7 % (47.0-73.0); PLATELET COUNT AUTOMATED 159 10*3/uL (130-400); RED BLOOD COUNT 4.51 10*6/uL (4.50-5.90); WHITE BLOOD COUNT 7.4 10*3/uL (4.8-10.8)
[2020-11-12 09:47] LABS: ALBUMIN 3.2 gm/dl (3.1-4.5); ALKALINE PHOSPHATASE 113 U/L (45-117); BUN 18 mg/dl (7-24); CHLORIDE 110 mmol/L (98-107); CREATININE 0.39 mg/dL (0.70-1.30); POTASSIUM 3.6 mmol/L (3.5-5.1); SGOT/AST 52 IU/L (3-35); SGPT/ALT 104 U/L (12-78); SODIUM 145 mmol/L (136-145); TOTAL PROTEIN 7.2 gm/dL (6.4-8.2)
[2020-11-12 09:49] LABS: TROPONIN I < 0.015 ng/ml (<0.045)
== END 2020-11-12 11:33 | disposition home or self-care (01) ==
LOC: ED 08:48
PROVIDERS: Family Medicine
DX: R07.9 Chest pain, unspecified (principal); Z43.0 Encounter for attention to tracheostomy; Z88.0 Allergy status to penicillin; Z88.6 Allergy status to analgesic agent; Z79.899 Other long term (current) drug therapy

== ENCOUNTER 2020-12-22 16:54 | Emergency (ER) | payer OTHER ==
[~2020-12-22] VITALS: Ht 177.8 cm; Wt 82.1 kg
== END 2020-12-22 23:27 | disposition home or self-care (01) ==
LOC: ED 16:54
DX: K94.23 Gastrostomy malfunction (principal); Z88.0 Allergy status to penicillin; Z88.6 Allergy status to analgesic agent; Z79.899 Other long term (current) drug therapy

== ENCOUNTER 2022-04-03 17:00 | Emergency (ER) | payer OTHER ==
[~2022-04-03] VITALS: Wt 73.9 kg
== END 2022-04-03 18:07 | disposition home or self-care (01) ==
LOC: ED 17:00
DX: K94.23 Gastrostomy malfunction (principal); Z88.0 Allergy status to penicillin; Z88.5 Allergy status to narcotic agent; Z90.89 Acquired absence of other organs; Z98.890 Other specified postprocedural states; Y83.8 Other surgical procedures as the cause of abnormal reaction of the patient, or of later complication, without mention of misadventure at the time of the procedure; Y92.89 Other specified places as the place of occurrence of the external cause

== ENCOUNTER 2022-04-06 10:05 | Emergency (ER) | payer OTHER ==
[~2022-04-06] VITALS: Wt 73.9 kg
== END 2022-04-06 13:19 | disposition home or self-care (01) ==
LOC: ED 10:05
DX: K94.23 Gastrostomy malfunction (principal); Z90.89 Acquired absence of other organs; Z98.890 Other specified postprocedural states; Z79.899 Other long term (current) drug therapy; Z88.0 Allergy status to penicillin; Z88.8 Allergy status to other drugs, medicaments and biological substances

== ENCOUNTER 2022-09-13 19:29 | Emergency (ER) | payer OTHER ==
[~2022-09-13] VITALS: Ht 175.2 cm; Wt 68.9 kg
[~2022-09-13 19:29] MED LIST changes: +ALKA-SELTZER D1 EACH PO; +GUAIFENESI100 MG/51 PO; +HYOSCYAMINE0.125 M2 SL; +MELATONIN3 M2 PO; +TRAMADOL HCL50 MG PO; +TRANSDERM-SCOP1 EAC1 TD
== END 2022-09-13 20:50 | disposition home or self-care (01) ==
LOC: ED 19:29
DX: Z93.0 Tracheostomy status (principal); Z88.0 Allergy status to penicillin; Z88.5 Allergy status to narcotic agent; Z98.890 Other specified postprocedural states; Z90.89 Acquired absence of other organs

== ENCOUNTER → 2022-09-26 | Outpatient (CLI) | payer OTHER ==
[2022-09-26 16:21] LABS: BASO # 0.1 10*3/uL (0.0-0.1); BASO % 0.6 % (0.0-1.0); EOS # 0.4 10*3/uL (0.0-0.4); EOS % 4.1 % (1.0-4.0); HEMATOCRIT 45.9 % (42.0-52.0); LYMPH # 1.8 10*3/uL (1.3-4.4); LYMPH % 18.8 % (27.0-41.0); MEAN CELL VOLUME 97.2 fl (80.0-94.0); MEAN CORPUSCULAR HGB 30.1 pg (27.0-31.0); MEAN CORPUSCULAR HGB CONC 30.9 g/dl (33.0-37.0); MEAN PLATELET VOLUME 12.3 fl (9.6-12.3); MONO # 0.8 10*3/uL (0.1-1.0); MONO % 8.2 % (3.0-9.0); NEUT # 6.3 10*3/uL (2.3-7.9); PLATELET COUNT AUTOMATED 178 10*3/uL (130-400); RED BLOOD COUNT 4.72 10*6/uL (4.50-5.90); RED CELL DISTRI WIDTH 15.3 % (0-14.5); WHITE BLOOD COUNT 9.3 10*3/uL (4.8-10.8)
[2022-09-26 16:47] LABS: ALKALINE PHOSPHATASE 115 U/L (46-116); BUN 14 mg/dl (9-23); CHLORIDE 103 mmol/L (98-107); CHOLESTEROL 188 mg/dL (<200); LDL CHOLESTEROL 115 mg/dL (9-159); POTASSIUM 4.6 mmol/L (3.4-5.1); SGPT/ALT 37 U/L (10-49); TOTAL PROTEIN 7.5 gm/dL (6.0-8.0); TRIGLYCERIDES 154 mg/dl (<150); VITAMIN D, 25-HYDROXY 40.5 ng/mL (30-100)
== END | disposition home or self-care (01) ==
LOC: LAB 15:37
PROVIDERS: ATTEND Nurse Practitioner Family
DX: R53.83 Other fatigue (principal); E46 Unspecified protein-calorie malnutrition; G71.00 Muscular dystrophy, unspecified; R13.10 Dysphagia, unspecified; L23.9 Allergic contact dermatitis, unspecified cause

== ENCOUNTER → 2022-10-05 | Outpatient (CLI) | payer OTHER | END | disposition home or self-care (01) | LOC: RAD 10:51 | PROVIDERS: ATTEND Nurse Practitioner Family | DX: R13.10 Dysphagia, unspecified (principal) ==

== ENCOUNTER 2022-10-10 09:30 | Emergency (ER) | payer OTHER ==
[~2022-10-10] VITALS: Wt 67.1 kg
[2022-10-10] MEDS ORDERED: VIBRAMYCIN HYC100 MG PO ×2 (13:16→19:45)
== END 2022-10-10 13:22 | disposition home or self-care (01) ==
LOC: ED 09:30
DX: S01.81XA Laceration without foreign body of other part of head, initial encounter (principal); Z88.0 Allergy status to penicillin; Z88.5 Allergy status to narcotic agent; Z90.89 Acquired absence of other organs; Z98.890 Other specified postprocedural states; W19.XXXA Unspecified fall, initial encounter; Y93.89 Activity, other specified; Y92.009 Unspecified place in unspecified non-institutional (private) residence as the place of occurrence of the external cause; Y99.8 Other external cause status

== ENCOUNTER 2022-11-05 10:46 | Emergency (ER) | payer OTHER ==
[~2022-11-05 10:46] MED LIST changes: +VIBRAMYCIN HYC100 MG PO
== END 2022-11-05 11:52 | disposition home or self-care (01) ==
LOC: ED 10:46
DX: K94.23 Gastrostomy malfunction (principal); Z88.0 Allergy status to penicillin; Z88.5 Allergy status to narcotic agent; Z90.89 Acquired absence of other organs; Z98.890 Other specified postprocedural states; Y83.8 Other surgical procedures as the cause of abnormal reaction of the patient, or of later complication, without mention of misadventure at the time of the procedure

== ENCOUNTER 2022-11-08 08:32 | Emergency (ER) | payer OTHER ==
[~2022-11-08] VITALS: Ht 175.2 cm; Wt 61.2 kg
== END 2022-11-08 10:34 | disposition home or self-care (01) ==
LOC: ED 08:32
DX: K94.23 Gastrostomy malfunction (principal); Z88.0 Allergy status to penicillin; Z88.5 Allergy status to narcotic agent; Z90.89 Acquired absence of other organs; Z98.890 Other specified postprocedural states; Y83.8 Other surgical procedures as the cause of abnormal reaction of the patient, or of later complication, without mention of misadventure at the time of the procedure

== ENCOUNTER 2022-11-11 11:14 | Emergency (ER) | payer OTHER ==
[~2022-11-11] VITALS: Wt 60.8 kg
== END 2022-11-11 13:28 | disposition home or self-care (01) ==
LOC: ED 11:14
DX: S82.092A Other fracture of left patella, initial encounter for closed fracture (principal); S80.00XA Contusion of unspecified knee, initial encounter; Z88.0 Allergy status to penicillin; Z88.5 Allergy status to narcotic agent; Z90.89 Acquired absence of other organs; Z98.890 Other specified postprocedural states; W19.XXXA Unspecified fall, initial encounter; Y93.89 Activity, other specified; Y92.89 Other specified places as the place of occurrence of the external cause; Y99.8 Other external cause status

== ENCOUNTER → 2022-11-16 | Outpatient (CLI) | payer OTHER | END | disposition home or self-care (01) | LOC: RAD 09:53 | PROVIDERS: ATTEND Orthopaedic Surgery | DX: S82.002A Unspecified fracture of left patella, initial encounter for closed fracture (principal); X58.XXXA Exposure to other specified factors, initial encounter; Y93.89 Activity, other specified; Y92.89 Other specified places as the place of occurrence of the external cause; Y99.8 Other external cause status ==

== ENCOUNTER → 2022-11-25 | Outpatient (CLI) | payer OTHER | END | disposition home or self-care (01) | LOC: ORTHO 00:53 | PROVIDERS: ATTEND Orthopaedic Surgery | DX: S72.402A Unspecified fracture of lower end of left femur, initial encounter for closed fracture (principal); X58.XXXA Exposure to other specified factors, initial encounter; Y93.89 Activity, other specified; Y92.89 Other specified places as the place of occurrence of the external cause; Y99.8 Other external cause status ==

== ENCOUNTER → 2023-01-06 | Outpatient (CLI) | payer OTHER ==
[~2023-01-06] MED LIST changes: +VENTOLIN 02.5 MG/3 M NEB
== END | disposition home or self-care (01) ==
LOC: ORTHO 00:43
PROVIDERS: ATTEND Orthopaedic Surgery
DX: S82.009D Unspecified fracture of unspecified patella, subsequent encounter for closed fracture with routine healing (principal); X58.XXXD Exposure to other specified factors, subsequent encounter

== ENCOUNTER → 2023-02-17 | Outpatient (CLI) | payer OTHER ==
[2023-02-17 13:25] LABS: BASO # 0.1 10*3/uL (0.0-0.1); BASO % 0.8 % (0.0-1.0); EOS # 0.4 10*3/uL (0.0-0.4); EOS % 5.1 % (1.0-4.0); HEMATOCRIT 45.7 % (42.0-52.0); LYMPH # 1.5 10*3/uL (1.3-4.4); LYMPH % 20.5 % (27.0-41.0); MEAN CORPUSCULAR HGB 29.1 pg (27.0-31.0); MEAN PLATELET VOLUME 11.2 fl (9.6-12.3); MONO # 0.6 10*3/uL (0.1-1.0); MONO % 7.4 % (3.0-9.0); NEUT % 66.1 % (47.0-73.0); PLATELET COUNT AUTOMATED 204 10*3/uL (130-400); RED BLOOD COUNT 4.71 10*6/uL (4.50-5.90); RED CELL DISTRI WIDTH 15.1 % (0-14.5); WHITE BLOOD COUNT 7.5 10*3/uL (4.8-10.8)
[2023-02-17 13:46] LABS: ALKALINE PHOSPHATASE 120 U/L (46-116); BUN 9 mg/dl (9-23); CHLORIDE 105 mmol/L (98-107); CHOLESTEROL 164 mg/dL (<200); LDL CHOLESTEROL 106 mg/dL (9-159); POTASSIUM 4.4 mmol/L (3.4-5.1); SGPT/ALT 51 U/L (5-49); TOTAL PROTEIN 7.3 gm/dL (6.0-8.0); TRIGLYCERIDES 120 mg/dl (<150)
== END | disposition home or self-care (01) ==
LOC: ORTHO 02:15 → LAB 02:15 → ORTHO 14:00
PROVIDERS: Nurse Practitioner Family; ATTEND Orthopaedic Surgery
DX: S82.002D Unspecified fracture of left patella, subsequent encounter for closed fracture with routine healing (principal); M17.12 Unilateral primary osteoarthritis, left knee; M25.462 Effusion, left knee; E78.5 Hyperlipidemia, unspecified; J18.9 Pneumonia, unspecified organism; E44.1 Mild protein-calorie malnutrition; R53.1 Weakness; Z23 Encounter for immunization; X58.XXXD Exposure to other specified factors, subsequent encounter

== ENCOUNTER → 2023-03-08 | Outpatient (CLI) | payer MEDICARE | END | disposition home or self-care (01) | LOC: ORTHO 03:30 | PROVIDERS: ATTEND Orthopaedic Surgery | DX: M25.571 Pain in right ankle and joints of right foot (principal) ==

== ENCOUNTER → 2023-03-10 | Outpatient (CLI) | payer OTHER | END | disposition home or self-care (01) | LOC: US 03-07 08:30 | PROVIDERS: ATTEND Nurse Practitioner Family | DX: R79.89 Other specified abnormal findings of blood chemistry (principal) ==

== ENCOUNTER 2023-03-14 15:29 | Emergency (ER) | payer OTHER ==
[~2023-03-14] VITALS: Ht 175.2 cm; Wt 66.7 kg
== END 2023-03-14 21:25 | disposition home or self-care (01) ==
LOC: ED 15:29
DX: T17.220A Food in pharynx causing asphyxiation, initial encounter (principal); Z88.0 Allergy status to penicillin; Z88.5 Allergy status to narcotic agent; Z98.890 Other specified postprocedural states; Z90.89 Acquired absence of other organs; W44.F3XA Food entering into or through a natural orifice, initial encounter; Y93.89 Activity, other specified; Y92.89 Other specified places as the place of occurrence of the external cause; Y99.8 Other external cause status

== ENCOUNTER → 2023-04-12 | Outpatient (CLI) | payer OTHER ==
[2023-04-12 11:06] LABS: BASO # 0.1 10*3/uL (0.0-0.1); BASO % 0.7 % (0.0-1.0); EOS # 0.3 10*3/uL (0.0-0.4); EOS % 4.7 % (1.0-4.0); HEMATOCRIT 47.2 % (42.0-52.0); LYMPH # 1.5 10*3/uL (1.3-4.4); LYMPH % 21.4 % (27.0-41.0); MEAN CELL VOLUME 97.1 fl (80.0-94.0); MEAN CORPUSCULAR HGB 29.2 pg (27.0-31.0); MEAN CORPUSCULAR HGB CONC 30.1 g/dl (33.0-37.0); MONO # 0.6 10*3/uL (0.1-1.0); MONO % 7.9 % (3.0-9.0); NEUT # 4.5 10*3/uL (2.3-7.9); NEUT % 65.2 % (47.0-73.0); PLATELET COUNT AUTOMATED 193 10*3/uL (130-400); RED BLOOD COUNT 4.86 10*6/uL (4.50-5.90); RED CELL DISTRI WIDTH 15.9 % (0-14.5)
[2023-04-12 11:50] LABS: ALKALINE PHOSPHATASE 102 U/L (46-116); BUN 13 mg/dl (9-23); CHLORIDE 105 mmol/L (98-107); POTASSIUM 4.9 mmol/L (3.4-5.1); SGPT/ALT 33 U/L (5-49); TOTAL PROTEIN 7.4 gm/dL (6.0-8.0)
[2023-04-13 13:06] LABS: HEPATITIS B SURFACE AB Non Reactive (.); HEPATITIS B SURFACE AG Negative (Negative)
== END | disposition home or self-care (01) ==
LOC: LAB 10:35
PROVIDERS: Nurse Practitioner Family; ATTEND Nurse Practitioner Family
DX: K21.9 Gastro-esophageal reflux disease without esophagitis (principal); R94.5 Abnormal results of liver function studies; D64.9 Anemia, unspecified

== ENCOUNTER 2023-04-26 10:38 | Emergency (ER) | payer MEDICARE ==
[~2023-04-26] VITALS: Wt 64.4 kg
[2023-04-26] MEDS ORDERED: Ipratropium Brom3 ML INH (10:56)
[2023-04-26 11:16] LABS: BASO # 0.1 10*3/uL (0.0-0.1); BASO % 0.6 % (0.0-1.0); EOS # 0.4 10*3/uL (0.0-0.4); EOS % 3.9 % (1.0-4.0); LYMPH # 1.6 10*3/uL (1.3-4.4); MEAN CELL VOLUME 97.7 fl (80.0-94.0); MEAN CORPUSCULAR HGB 29.3 pg (27.0-31.0); MEAN PLATELET VOLUME 10.7 fl (9.6-12.3); MONO # 0.8 10*3/uL (0.1-1.0); MONO % 7.3 % (3.0-9.0); NEUT # 7.4 10*3/uL (2.3-7.9); PLATELET COUNT AUTOMATED 196 10*3/uL (130-400); RED BLOOD COUNT 4.71 10*6/uL (4.50-5.90); RED CELL DISTRI WIDTH 15.7 % (0-14.5); WHITE BLOOD COUNT 10.2 10*3/uL (4.8-10.8)
[2023-04-26 11:38] LABS: ALKALINE PHOSPHATASE 108 U/L (46-116); BUN 12 mg/dl (9-23); CHLORIDE 106 mmol/L (98-107); POTASSIUM 4.4 mmol/L (3.4-5.1); SGPT/ALT 38 U/L (5-49); TOTAL PROTEIN 7.4 gm/dL (6.0-8.0); URIC ACID 2.7 mg/dL (3.7-9.2)
[2023-04-26] MEDS ORDERED: DIATRIZOATE MEG/DIATRIZO. SOD 120 ML BOT PO ONE (13:00)
[2023-04-26] MEDS ORDERED: DIATRIZOATE MEG/DIATRIZO. SOD 120 ML BOT ONE (13:11)
== END 2023-04-26 14:49 | disposition home or self-care (01) ==
LOC: ED 10:38
PROVIDERS: Emergency Medicine
DX: K94.23 Gastrostomy malfunction (principal); M79.674 Pain in right toe(s); Z88.0 Allergy status to penicillin; Z88.5 Allergy status to narcotic agent; Z98.890 Other specified postprocedural states; Z90.89 Acquired absence of other organs

== ENCOUNTER 2023-07-19 13:44 | Emergency (ER) | payer MEDICARE ==
[~2023-07-19] VITALS: Ht 175.2 cm; Wt 66.7 kg
[~2023-07-19 13:44] MED LIST changes: +Ipratropium Brom3 ML INH
== END 2023-07-19 15:58 | disposition home or self-care (01) ==
LOC: ED 13:44
DX: K94.23 Gastrostomy malfunction (principal); Z88.0 Allergy status to penicillin; Z88.5 Allergy status to narcotic agent; Z79.899 Other long term (current) drug therapy; Z90.89 Acquired absence of other organs

== ENCOUNTER 2023-08-13 20:55 | Emergency (ER) | payer MEDICARE ==
[2023-08-13 21:22] LABS: BASO # 0.1 10*3/uL (0.0-0.1); BASO % 0.7 % (0.0-1.0); EOS # 0.5 10*3/uL (0.0-0.4); EOS % 4.6 % (1.0-4.0); HEMATOCRIT 48.8 % (42.0-52.0); MEAN CELL VOLUME 98.4 fl (80.0-94.0); MEAN CORPUSCULAR HGB CONC 30.5 g/dl (33.0-37.0); MEAN PLATELET VOLUME 11.3 fl (9.6-12.3); MONO % 10.5 % (3.0-9.0); NEUT # 6.1 10*3/uL (2.3-7.9); NEUT % 62.9 % (47.0-73.0); PLATELET COUNT AUTOMATED 177 10*3/uL (130-400); RED BLOOD COUNT 4.96 10*6/uL (4.50-5.90); WHITE BLOOD COUNT 9.7 10*3/uL (4.8-10.8)
[2023-08-13 21:44] LABS: ALKALINE PHOSPHATASE 123 U/L (46-116); BUN 10 mg/dl (9-23); CHLORIDE 103 mmol/L (98-107); POTASSIUM 4.4 mmol/L (3.4-5.1); SGPT/ALT 63 U/L (5-49); TOTAL PROTEIN 7.1 gm/dL (6.0-8.0)
[2023-08-14] MEDS ORDERED: LEVOFLOXACIN 750 MG TAB PO ONE (00:10)
[2023-08-14] MEDS ORDERED: LEVOFLOXACIN750 M2 PO (00:17)
== END 2023-08-14 01:51 | disposition home or self-care (01) ==
LOC: ED 20:55
PROVIDERS: Internal Medicine
DX: J18.9 Pneumonia, unspecified organism (principal); G71.00 Muscular dystrophy, unspecified; R79.89 Other specified abnormal findings of blood chemistry; D75.89 Other specified diseases of blood and blood-forming organs; Z88.0 Allergy status to penicillin; Z88.5 Allergy status to narcotic agent; Z98.890 Other specified postprocedural states; Z90.89 Acquired absence of other organs

== ENCOUNTER 2023-08-17 09:21 | Emergency (ER) | payer MEDICARE ==
[~2023-08-17] VITALS: Ht 177.8 cm; Wt 73.5 kg
[2023-08-17] MEDS ORDERED: CICLOPIROX T (09:54)
== END 2023-08-17 11:25 | disposition home or self-care (01) ==
LOC: ED 09:21
DX: J98.8 Other specified respiratory disorders (principal); J18.9 Pneumonia, unspecified organism; Z88.0 Allergy status to penicillin; Z88.5 Allergy status to narcotic agent; Z98.890 Other specified postprocedural states; Z90.89 Acquired absence of other organs

== ENCOUNTER → 2023-08-30 | Outpatient (CLI) | payer MEDICARE ==
[~2023-08-30] MED LIST changes: +CICLOPIROX T
== END | disposition home or self-care (01) ==
LOC: LAB 15:36
PROVIDERS: ATTEND Nurse Practitioner Family
DX: R32 Unspecified urinary incontinence (principal)

== ENCOUNTER → 2023-10-17 | Outpatient (CLI) | payer MEDICARE ==
[~2023-10-17] MED LIST changes: +GUAIFENESI100 MG/51 PEG; +SEPTDS PEG; +SERTRALINE HYDR50 MG PO
== END | disposition home or self-care (01) ==
LOC: RAD 12:18
PROVIDERS: ATTEND Nurse Practitioner Family
DX: J18.8 Other pneumonia, unspecified organism (principal)

== ENCOUNTER → 2023-11-20 | Outpatient (CLI) | payer MEDICARE ==
[2023-11-20 15:12] LABS: BASO # 0.1 10*3/uL (0.0-0.1); BASO % 0.7 % (0.0-1.0); EOS # 0.3 10*3/uL (0.0-0.4); EOS % 4.2 % (1.0-4.0); HEMATOCRIT 46.1 % (42.0-52.0); LYMPH # 1.3 10*3/uL (1.3-4.4); LYMPH % 18.6 % (27.0-41.0); MEAN CELL VOLUME 98.1 fl (80.0-94.0); MEAN CORPUSCULAR HGB 29.6 pg (27.0-31.0); MEAN CORPUSCULAR HGB CONC 30.2 g/dl (33.0-37.0); MEAN PLATELET VOLUME 11.6 fl (9.6-12.3); MONO # 0.6 10*3/uL (0.1-1.0); MONO % 9.5 % (3.0-9.0); NEUT # 4.5 10*3/uL (2.3-7.9); NEUT % 66.9 % (47.0-73.0); PLATELET COUNT AUTOMATED 177 10*3/uL (130-400); RED CELL DISTRI WIDTH 15.5 % (0-14.5); WHITE BLOOD COUNT 6.7 10*3/uL (4.8-10.8)
[2023-11-20 15:40] LABS: ALKALINE PHOSPHATASE 122 U/L (46-116); BUN 12 mg/dl (9-23); CHLORIDE 103 mmol/L (98-107); CHOLESTEROL 174 mg/dL (<200); LDL CHOLESTEROL 110 mg/dL (9-159); POTASSIUM 4.6 mmol/L (3.4-5.1); SGPT/ALT 45 U/L (5-49); TOTAL PROTEIN 7.1 gm/dL (6.0-8.0); TRIGLYCERIDES 125 mg/dl (<150)
== END | disposition home or self-care (01) ==
LOC: LAB 14:29
PROVIDERS: ATTEND Nurse Practitioner Family
DX: T85.598A Other mechanical complication of other gastrointestinal prosthetic devices, implants and grafts, initial encounter (principal); Z93.0 Tracheostomy status; G71.11 Myotonic muscular dystrophy; J18.9 Pneumonia, unspecified organism; X58.XXXA Exposure to other specified factors, initial encounter; Y93.89 Activity, other specified; Y92.89 Other specified places as the place of occurrence of the external cause; Y99.8 Other external cause status; Z79.899 Other long term (current) drug therapy

== ENCOUNTER 2024-02-01 20:05 | Emergency (ER) | payer MEDICARE | END 2024-02-01 21:34 | disposition home or self-care (01) | LOC: ED 20:05 | DX: Z43.0 Encounter for attention to tracheostomy (principal); J98.09 Other diseases of bronchus, not elsewhere classified; Z88.0 Allergy status to penicillin; Z88.5 Allergy status to narcotic agent; Z98.890 Other specified postprocedural states; Z90.49 Acquired absence of other specified parts of digestive tract ==

== ENCOUNTER 2024-02-06 16:32 | Emergency (ER) | payer MEDICARE ==
[~2024-02-06] VITALS: Ht 182.8 cm; Wt 74.1 kg
== END 2024-02-06 17:27 | disposition home or self-care (01) ==
LOC: ED 16:32
DX: J95.03 Malfunction of tracheostomy stoma (principal); K21.9 Gastro-esophageal reflux disease without esophagitis; I10 Essential (primary) hypertension; Z88.0 Allergy status to penicillin; Z88.5 Allergy status to narcotic agent; Z90.89 Acquired absence of other organs; Z98.890 Other specified postprocedural states

== ENCOUNTER → 2024-02-21 | Outpatient (CLI) | payer MEDICARE | END | disposition home or self-care (01) | LOC: WOUNDCARE 02:56 | PROVIDERS: ATTEND Nurse Practitioner Family | DX: L89.311 Pressure ulcer of right buttock, stage 1 (principal); L89.321 Pressure ulcer of left buttock, stage 1; G71.00 Muscular dystrophy, unspecified; F32.A Depression, unspecified; Z93.0 Tracheostomy status; Z93.1 Gastrostomy status; Z79.899 Other long term (current) drug therapy ==

== ENCOUNTER → 2024-03-01 | Outpatient (CLI) | payer MEDICARE | END | disposition home or self-care (01) | LOC: WOUNDCARE 00:34 | PROVIDERS: ATTEND Nurse Practitioner Family | DX: L89.321 Pressure ulcer of left buttock, stage 1 (principal); L89.311 Pressure ulcer of right buttock, stage 1; G71.00 Muscular dystrophy, unspecified; F32.A Depression, unspecified; Z93.1 Gastrostomy status; Z93.0 Tracheostomy status; Z90.89 Acquired absence of other organs; Z98.890 Other specified postprocedural states; Z79.899 Other long term (current) drug therapy ==

== ENCOUNTER → 2024-03-19 | Outpatient (CLI) | payer MEDICARE | END | disposition home or self-care (01) | LOC: WOUNDCARE 03-15 00:13 | PROVIDERS: ATTEND Nurse Practitioner Family | DX: L89.311 Pressure ulcer of right buttock, stage 1 (principal); L89.321 Pressure ulcer of left buttock, stage 1; G71.00 Muscular dystrophy, unspecified; F32.A Depression, unspecified; Z93.1 Gastrostomy status; Z93.0 Tracheostomy status; Z98.890 Other specified postprocedural states; Z79.899 Other long term (current) drug therapy ==

== ENCOUNTER → 2024-07-01 | Outpatient (CLI) | payer MEDICARE | END | disposition home or self-care (01) | LOC: RAD 12:42 | PROVIDERS: ATTEND Nurse Practitioner Family | DX: J98.11 Atelectasis (principal); R05.1 Acute cough ==

== ENCOUNTER 2024-10-10 13:29 | Inpatient (IN) | payer OTHER ==
[~2024-10-10] VITALS: Ht 170.2 cm; Wt 72.6 kg
[2024-10-10 13:35] VITALS: BP 76/46
[2024-10-10] MEDS ORDERED: diazePAM 10 MG/2 ML SYR IV PRN (14:10)
[2024-10-10] MEDS ORDERED: GLYCOPYRROLATE 0.2 MG IV PRN (14:10)
[2024-10-10] MEDS ORDERED: BISACODYL 10 MG SUPP R PRN (14:15)
[2024-10-10] MEDS ORDERED: Ondansetron Hydrochloride 4 MG/2 ML VIAL IV PRN (14:15)
[2024-10-10] MEDS ORDERED: ACETAMINOPHEN 500 MG TAB PEG PRN (14:15)
[2024-10-10] MEDS ORDERED: Albuterol Sulf/Ipratropium 3 ML VIAL NEB PRN (14:15)
[2024-10-10] MEDS ORDERED: GUAIFENESIN 10 ML UDC PEG PRN (14:15)
[2024-10-10] MEDS ORDERED: GLYCOPYRROLATE 0.4 MG/2 ML VIAL IV PRN (14:25)
[2024-10-10] MEDS ORDERED: ACETAMINOPHEN 325 MG/10.15 ML UDC PEG PRN (14:25)
[2024-10-10] MEDS ORDERED: HYDROMORPHONE IV SCH (14:30)
[2024-10-10] MEDS ORDERED: SODIUM CHLORIDE 0.9% IV SCH (14:30)
[2024-10-10 16:00] VITALS: BP 117/55
[2024-10-10] MEDS ORDERED: LEPTOSPERMUM HONEY 0.5 OZ TUBE T ONE (18:47)
[2024-10-11] MEDS ORDERED: SODIUM CHLORIDE 0.9% 1,000 ML IV ONE (06:08)
[2024-10-11 08:00] VITALS: BP 00/00
[2024-10-11 16:00] VITALS: BP 70/40
== END 2024-10-12 02:41 | DRG 189 ==
LOC: ICCU 13:29 → 4E 10-11 19:26
PROVIDERS: ADMIT Internal Medicine; ATTEND Internal Medicine
DX: J96.01 Acute respiratory failure with hypoxia (principal); J18.9 Pneumonia, unspecified organism; J96.02 Acute respiratory failure with hypercapnia; T17.998A Other foreign object in respiratory tract, part unspecified causing other injury, initial encounter; Z51.5 Encounter for palliative care; G71.11 Myotonic muscular dystrophy; Z66 Do not resuscitate; N40.0 Benign prostatic hyperplasia without lower urinary tract symptoms; I10 Essential (primary) hypertension; K21.9 Gastro-esophageal reflux disease without esophagitis; W44.8XXA Other foreign body entering into or through a natural orifice, initial encounter; Z93.0 Tracheostomy status; Z93.1 Gastrostomy status; Y93.89 Activity, other specified; Y92.89 Other specified places as the place of occurrence of the external cause; Y99.8 Other external cause status